=== PATIENT | male | born 1965 | race Caucasian/White ===

== ENCOUNTER 2019-10-27 18:28 | Emergency (ER) | payer BC, OTHER, SELFPAY ==
--- NOTE | ~2019-10-27 | XR_ITS ---
EXAMINATION: XR toe 1st LT min 2V EXAM DATE: 10/27/2019 19:22 INDICATION: Left 1st toe wound, redness, swelling. TECHNIQUE: Frontal and lateral projections of the left 1st toe. There is no prior study for compari son. FINDINGS: There are no bony erosions identified. There is moderate 1st MTP primary osteoarthritis. T here are no acute fractures or dislocations identified. There is no subcutaneous gas. Some faint va scular calcifications. There are no radiopaque foreign bodies. IMPRESSION: 1. No acute osseous findings. 2. Moderate left 1st MTP osteoarthritis. Reviewed, dictated and finalized at location A.
[2019-10-27 18:30] VITALS: BP 150/96; PULSE 84; RESP 20; TEMP 36.6; O2SAT 95
[2019-10-27 19:48] LABS: Hemoglobin A1C 4.4 % (<5.7)
[2019-10-27 19:54] LABS: Anion Gap 9 mmol/L (8-16); Blood Urea Nitrogen 15 mg/dL (9-20); CRP 0.5 mg/dL (<1.0); Calcium 9.6 mg/dL (8.4-10.2); Carbon Dioxide 29 mmol/L (22-30); Chloride 101 mmol/L (98-107); Estimated CRCL calculation 133 ml/min; Estimated Glomerular Filt Rate > 60; Glucose 98 mg/dL (75-110); Potassium 4.5 mmol/L (3.4-5.0); Sodium 139 mmol/L (137-145)
[2019-10-27 20:00] LABS: Basophils Absolute Auto 0.1 K/mm3 (0.0-0.1); Basophils Percent Auto 0.5 % (0.2-1.2); Eosinophils Absolute Auto 0.3 K/mm3 (0-0.3); Eosinophils Percent Auto 2.7 % (0-4.4); Hematocrit 47.6 % (42.0-52.0); Hemoglobin 15.7 g/dL (14.0-18.0); Immature Granulocyte Absolute 0.04 K/mm3 (0.00-0.031); Immature Granulocyte Percent A 0.4 % (0-0.5); Lymphocytes Absolute Auto 2.84 K/mm3 (0.9-3.2); Lymphocytes Percent Auto 26.4 % (18.3-44.2); Mean Corpuscular Hemoglobin 30.7 pg (26-34); Mean Corpuscular Volume 93.2 fl (80-100); Mean Platelet Volume 11.1 fl (7.4-10.4); Monocytes Absolute Auto 0.7 K/mm3 (0.1-0.6); Monocytes Percent Auto 6.2 % (2.6-8.5); Neutrophils Absolute Auto 6.9 K/mm3 (1.3-6.7); Neutrophils Percent Auto 63.8 % (45.5-73.1); Platelet Count Result 206 k/mm3 (150-375); Red Blood Count 5.11 M/mm3 (4.6-6.20); Red Cell Distribution Width 12.3 % (11.5-14.5); White Blood Count 10.8 K/mm3 (4.5-10.0)
[2019-10-27 20:23] LABS: Erythrocyte Sedimentation Rate 6 mm/hr (0-20)
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
[2019-10-27 21:39] VITALS: BP 138/70; PULSE 70; RESP 20; O2SAT 99
== END 2019-10-27 21:41 | disposition home or self-care (01) ==
PROVIDERS: Physician Assistant; Emergency Provider Emergency Medicine; PCP Family Medicine
DX: L03.116 Cellulitis of left lower limb (principal); I10 Essential (primary) hypertension; E11.9 Type 2 diabetes mellitus without complications; F32.9 Major depressive disorder, single episode, unspecified
CPT/HCPCS: 36415; 73660; 80048; 83036; 85025; 85652; 86140; 87040; 96365; 99284; J0690

== ENCOUNTER 2019-11-19 12:04 | Emergency (ER) | payer BC, OTHER, SELFPAY ==
[2019-11-19 12:20] VITALS: BP 127/92; PULSE 72; RESP 18; TEMP 36.7
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
[2019-11-19 12:50] VITALS: O2SAT 100
[2019-11-19] MEDS: cefTRIAXone 1 GM VIAL IM (13:02)
[2019-11-19] MEDS: LIDOCAINE HCL 1% LOCAL INJ 20 ML VIAL 2.1 ML IM (13:03)
== END 2019-11-19 13:25 | disposition home or self-care (01) ==
PROVIDERS: Emergency Provider Registered Nurse; PCP Family Medicine
DX: L03.032 Cellulitis of left toe (principal); S91.102D Unspecified open wound of left great toe without damage to nail, subsequent encounter; W45.8XXD Other foreign body or object entering through skin, subsequent encounter; Z87.891 Personal history of nicotine dependence
CPT/HCPCS: 96372; 99213; G0463; J0696

== ENCOUNTER → 2019-12-06 15:46 | Outpatient (REF) | payer BC, OTHER, SELFPAY | LOC: ANHLAB 15:46 | PROVIDERS: PCP Family Medicine; Visit Provider Nurse Practitioner | DX: R22.9 Localized swelling, mass and lump, unspecified (principal) | CPT/HCPCS: 88304 ==

== ENCOUNTER 2020-01-27 13:01 | Emergency (ER) | payer OTHER, BC, SELFPAY ==
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
[2020-01-27 13:15] VITALS: BP 154/96; PULSE 77; RESP 16; TEMP 36.2; O2SAT 99
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
== END 2020-01-27 14:02 | disposition home or self-care (01) ==
PROVIDERS: Emergency Provider Nurse Practitioner; PCP Family Medicine
DX: T14.8XXA Other injury of unspecified body region, initial encounter (principal); V47.5XXA Car driver injured in collision with fixed or stationary object in traffic accident, initial encounter; S29.9XXA Unspecified injury of thorax, initial encounter; S13.4XXA Sprain of ligaments of cervical spine, initial encounter; Z87.891 Personal history of nicotine dependence; Z98.84 Bariatric surgery status; M17.10 Unilateral primary osteoarthritis, unspecified knee; I10 Essential (primary) hypertension; E11.40 Type 2 diabetes mellitus with diabetic neuropathy, unspecified; G47.33 Obstructive sleep apnea (adult) (pediatric); M47.814 Spondylosis without myelopathy or radiculopathy, thoracic region; F33.9 Major depressive disorder, recurrent, unspecified
CPT/HCPCS: 71046; 99213; G0463

== ENCOUNTER 2020-08-14 15:37 | Emergency (ER) | payer BC, OTHER, SELFPAY ==
[2020-08-14 15:53] VITALS: BP 143/90; PULSE 77; RESP 16; TEMP 37.1; O2SAT 98
--- NOTE | 2020-08-14 16:13 | ED.SKABFB ---
HPI - Skin/Abscess/Foreign Bdy General Chief complaint: Skin/Abscess/Foreign Body Stated complaint: Right foot Infection Source: patient and RN notes reviewed Limitations: no limitations History of Present Illness HPI narrative: The patient, who has prior history of diabetes on several meds, presents with right toe discomfort. Patient states he has improved, diet-controlled diabetes -associated with neuropathy, that has gotten better since a gastric bypass. In the past he had staph infection of his opposite, left foot; his orthopedic history is also remarkable for bilateral knee replacements. He now complains of 1/2-week history of right great toe discomfort that seems to originate proximate to the nail. He complains of pain redness that is moving proximally, slightly worse worse with activity and better with rest or elevation-as he is using his other foot's postop shoe. No fever, discharge, rash, abscess/induration but he does indicated swelling with some shininess. Patient advised to follow-up without fail especially if no improvement. Related Data Home Medications Medication Instructions Recorded Confirmed amlodipine [Norvasc] 10 mg PO DAILY 01/27/20 08/14/20 Allergies Allergy/AdvReac Type Severity Reaction Status Date / Time NSAIDS (Non-Steroidal Allergy Mild UNABLE TO Verified 08/14/20 16:01 Anti-Inflamma TAKE DUE TO GASTRIC BYPASS SURGERY Review of Systems Review of Systems: Narrative: General/Constitutional: No weight loss,fever Eyes: N0: Redness,discharge Ears/Nose/Throat: No: Epistaxis,ear discharge Respiratory: Denies: Hemoptysis Gastrointestinal: No Vomiting, Bleeding-rectal Skin: No Lumps, REPORTS eruption Neurologic: No Focal Weakness,Sz Hematologic: Denies: Petechiae/Purpura Psychiatric: No: Suicida ideationl All Other Systems: Reviewed and Negative [facility] Past Medical History Medical History Arthritis of knee, degenerative Benign essential HTN Diabetes mellitus Diabetic neuropathy Hypertension MDD (major depressive disorder), recurrent episode, moderate Morbid (severe) obesity due to excess calories TALIB (obstructive sleep apnea) Pannus, abdominal Thoracic spondylosis Surgical History Surgical History History of appendectomy History of gastric bypass 04/07/18 Hx of total knee arthroplasty bilateral Family History Family History Father Hypertension Family history of chronic obstructive pulmonary disease Diabetes mellitus Family history of arthritis Patient's father is , Onset Age: 72 Sibling Hypertension Family history of chronic obstructive pulmonary disease Patient's sister is , Onset Age: 54 Patient's brother is in good health Mother Family history of lymphoma Patient's mother is , Onset Age: 54 Social History Social History Social History: Smoking packs per day: 1 Smoking cigarettes per day: 20.0 Smoking status: Former smoker Tobacco type: cigarettes Second hand tobacco smoke exposure: No Smoking end date: 03/17/17 Alcohol intake: current Drinks per week: 4 Substance use: current Substance use type: marijuana Gender identity (if verbalized by the patient): Male Comments At time of signature, agree with nursing past medical, surgical, social and family history. There is no relevant family history pertinent to the presenting complaint Exam Narrative: Exam Narrative: General Appearance: Overweight/well nourished, No distress EYE: PERRLA, EOMI, Conjunctiva clear Ears: External ear normal, Auditory canal normal Nose: Normal nose, Nares clear Mouth/Throat: Normal appearing, Normal lips Neck: Supple Respiratory: Airway moore
== END 2020-08-14 16:30 | disposition home or self-care (01) ==
PROVIDERS: Emergency Provider Emergency Medicine; PCP Family Medicine
DX: L03.115 Cellulitis of right lower limb (principal); Z87.891 Personal history of nicotine dependence; I10 Essential (primary) hypertension; E11.42 Type 2 diabetes mellitus with diabetic polyneuropathy; G47.33 Obstructive sleep apnea (adult) (pediatric); M47.814 Spondylosis without myelopathy or radiculopathy, thoracic region; M17.10 Unilateral primary osteoarthritis, unspecified knee
CPT/HCPCS: 99213; G0463

== ENCOUNTER 2020-08-17 10:16 | Outpatient (CLI) | payer BC, OTHER, SELFPAY ==
--- NOTE | ~2020-08-17 | XR_ITS ---
EXAMINATION: XR foot RT min 3V DATE: 08/17/2020 10:36 INDICATION: Cellulitis TECHNIQUE: Dorsoplantar, two oblique and lateral views of the right foot were obtained. COMPARISON: None. FINDINGS: Bone alignment is normal. There has been interval shortening of the right first proximal phalanx with appearance suggesting prior osteotomy. No fracture. Polyarticular osteoarthritis, moderate severity at the fourth tarsal metatarsal joint and mild at many of the remaining joints in the mid and forefoo t. Small Achilles and plantar calcaneal spurs. No periosteal reaction or cortical erosions. Soft tiss ue swelling over the medial and dorsolateral aspects of the midfoot. IMPRESSION: 1. Suggestion of chronic shortening osteotomy at the right first proximal phalanx. Correlate with ari gical history. No acute osseous abnormality. 2. Mild to moderate polyarticular osteoarthritis. Reviewed, dictated and finalized at location A. IMPRESSION: 1. Suggestion of chronic shortening osteotomy at the right first proximal phala nx. Correlate with surgical history. No acute osseous abnormality. 2. Mild to moderate polyarticular osteoarthritis.
== END 2020-08-17 10:17 | disposition home or self-care (01) ==
LOC: ANHIMG 10:22
PROVIDERS: PCP Family Medicine; Visit Provider Family Medicine
DX: L03.90 Cellulitis, unspecified (principal); E11.40 Type 2 diabetes mellitus with diabetic neuropathy, unspecified; M19.071 Primary osteoarthritis, right ankle and foot
CPT/HCPCS: 73630

== ENCOUNTER 2020-08-21 07:47 | Outpatient (CLI) | payer BC, OTHER, SELFPAY ==
[2020-08-21 08:16] LABS: Basophils Percent Auto 0.6 % (0.2-1.2); Eosinophils Absolute Auto 0.6 K/mm3 (0-0.3); Eosinophils Percent Auto 9.4 % (0-4.4); Hematocrit 44.1 % (42.0-52.0); Hemoglobin 14.6 g/dL (14.0-18.0); Immature Granulocyte Absolute 0.01 K/mm3 (0.00-0.031); Immature Granulocyte Percent A 0.2 % (0-0.5); Lymphocytes Absolute Auto 2.35 K/mm3 (0.9-3.2); Lymphocytes Percent Auto 37.3 % (18.3-44.2); Mean Corpuscular HGB Conc 33.1 g/dl (32-36); Mean Corpuscular Hemoglobin 31.5 pg (26-34); Mean Corpuscular Volume 95.2 fl (80-100); Mean Platelet Volume 9.8 fl (7.4-10.4); Monocytes Absolute Auto 0.6 K/mm3 (0.1-0.6); Monocytes Percent Auto 9.5 % (2.6-8.5); Neutrophils Absolute Auto 2.7 K/mm3 (1.3-6.7); Platelet Count Result 195 k/mm3 (150-375); Red Blood Count 4.63 M/mm3 (4.6-6.20); Red Cell Distribution Width 12.6 % (11.5-14.5); White Blood Count 6.3 K/mm3 (4.5-10.0)
[2020-08-21 08:31] LABS: Alanine Aminotransferase 24 U/L (4-50); Albumin Level 3.9 g/dL (3.5-5.1); Alkaline Phosphatase 126 U/L (38-126); Anion Gap 8 mmol/L (8-16); Aspartate Amino Transferase 46 U/L (17-59); Bilirubin,Total 0.7 mg/dL (0.2-1.3); Blood Urea Nitrogen 11 mg/dL (9-20); Calcium 9.1 mg/dL (8.4-10.2); Carbon Dioxide 30 mmol/L (22-30); Chloride 103 mmol/L (98-107); Cholesterol 164 mg/dL (0-200); Estimated Glomerular Filt Rate > 60; Glucose 101 mg/dL (75-110); HDL Direct 58 mg/dL; Potassium 3.9 mmol/L (3.4-5.0); Sodium 141 mmol/L (137-145); Triglycerides 106 mg/dL (<150); Uric Acid 4.2 mg/dL (3.5-8.5)
[2020-08-21 08:35] LABS: Hemoglobin A1C 4.9 % (<5.7)
[2020-08-21 09:03] LABS: LDL Cholesterol Direct 80 mg/dL
[2020-08-21 09:38] LABS: Erythrocyte Sedimentation Rate 16 mm/hr (0-20)
[2020-08-21 13:59] LABS: MALB Creatinine Ratio 17.2 mg/g (0-30); Microalbumin Urine Random 9.3 mg/L (0-16.7)
== END 2020-08-21 07:48 | disposition home or self-care (01) ==
LOC: ANHLAB 07:51
PROVIDERS: PCP Family Medicine; Visit Provider Family Medicine
DX: E78.2 Mixed hyperlipidemia (principal); L40.9 Psoriasis, unspecified; E11.9 Type 2 diabetes mellitus without complications; I10 Essential (primary) hypertension; E79.0 Hyperuricemia without signs of inflammatory arthritis and tophaceous disease
CPT/HCPCS: 36415; 80053; 80061; 82043; 83036; 84550; 85025; 85652

== ENCOUNTER 2020-08-22 07:18 | Outpatient (CLI) | payer BC, OTHER, SELFPAY ==
--- NOTE | ~2020-08-22 | CT_ITS ---
EXAMINATION: CT foot RT wo con DATE: 08/22/2020 08:06 INDICATION: Cellulitis of right toe. Diabetic neuropathy. TECHNIQUE: Computed tomography (CT) of the right foot was performed without intravenous contrast. Aut omated exposure control and iterative reconstruction technique were employed. The dose-length product was 390.25 mGy-cm. COMPARISON: Right foot radiographs 08/17/2020, 11/24/15 FINDINGS: There is a comminuted fracture of first proximal phalanx with extension of fracture lines t o the proximal and distal articular surfaces. The main distal fracture fragment demonstrates impactio n and 2 mm dorsal displacement. There is mild osteoarthritis of first metatarsophalangeal joint and t he ankle joint and some of the midfoot joints. There are enthesophytes at the posterior and plantar a spects of calcaneal tuberosity. IMPRESSION: 1. Acute comminuted fracture of first proximal phalanx. Reviewed, dictated and finalized at location A.
== END 2020-08-22 07:19 | disposition home or self-care (01) ==
PROVIDERS: PCP Family Medicine; Visit Provider Family Medicine
DX: L03.031 Cellulitis of right toe (principal); E11.40 Type 2 diabetes mellitus with diabetic neuropathy, unspecified
CPT/HCPCS: 73700

== ENCOUNTER 2020-09-07 11:46 | Emergency (ER) | payer BC, OTHER, SELFPAY ==
[2020-09-07 12:01] VITALS: BP 153/89; PULSE 93; RESP 16; TEMP 36.6; O2SAT 99
[2020-09-07 12:12] LABS: Basophils Percent Auto 0.5 % (0.2-1.2); Eosinophils Absolute Auto 0.3 K/mm3 (0-0.3); Eosinophils Percent Auto 3.1 % (0-4.4); Hematocrit 48.7 % (42.0-52.0); Hemoglobin 16.2 g/dL (14.0-18.0); Immature Granulocyte Absolute 0.02 K/mm3 (0.00-0.031); Immature Granulocyte Percent A 0.2 % (0-0.5); Lymphocytes Absolute Auto 1.64 K/mm3 (0.9-3.2); Lymphocytes Percent Auto 20.4 % (18.3-44.2); Mean Corpuscular HGB Conc 33.3 g/dl (32-36); Mean Corpuscular Volume 96.2 fl (80-100); Monocytes Absolute Auto 0.6 K/mm3 (0.1-0.6); Monocytes Percent Auto 7.2 % (2.6-8.5); Neutrophils Absolute Auto 5.5 K/mm3 (1.3-6.7); Neutrophils Percent Auto 68.6 % (45.5-73.1); Platelet Count Result 203 k/mm3 (150-375); Red Blood Count 5.06 M/mm3 (4.6-6.20); Red Cell Distribution Width 12.1 % (11.5-14.5); White Blood Count 8.1 K/mm3 (4.5-10.0)
[2020-09-07 12:23] LABS: Alanine Aminotransferase 58 U/L (4-50); Albumin Level 4.6 g/dL (3.5-5.1); Alkaline Phosphatase 219 U/L (38-126); Anion Gap 9 mmol/L (8-16); Aspartate Amino Transferase 82 U/L (17-59); Bilirubin,Total 1.6 mg/dL (0.2-1.3); Blood Urea Nitrogen 8 mg/dL (9-20); Calcium 9.6 mg/dL (8.4-10.2); Carbon Dioxide 27 mmol/L (22-30); Chloride 101 mmol/L (98-107); Estimated CRCL calculation 136 ml/min; Estimated Glomerular Filt Rate > 60; Glucose 157 mg/dL (75-110); Lipase 870 U/L (23-300); Potassium 4.2 mmol/L (3.4-5.0); Sodium 137 mmol/L (137-145)
[2020-09-07 12:53] LABS: Add Urine Microscopic? YES; Appearance Urine Clear (Clear); Bilirubin Urine Negative (Negative); Blood Urine Negative (Negative); Color Urine Amber (Yellow); Glucose Urine UA Negative (Negative); Hyaline Casts Urine 30-49 /lpf; Ketones Urine Negative (Negative); Leukocyte Esterase Ur Negative LEU/UL (Negative); Mucus Urine Moderate /lpf; Nitrate Urine Negative (Negative); Protein Urine 2+ mg/dL (Negative); RBC Urine 0-2 /hpf (0-2); Specific Grav Ur 1.012 (1.001-1.035); Urobilinogen Urine Negative mg/dL (<2.0); WBC Urine 0-3 /hpf
--- NOTE | 2020-09-07 14:55 | PC.NURSE ---
pt wants results sent to his primary. [facility] is tired of waiting. [facility] is going home to lay down.
== END 2020-09-08 03:51 | disposition left against medical advice (07) ==
LOC: ANHED 15:50
PROVIDERS: Emergency Provider Emergency Medicine; PCP Family Medicine
DX: R10.9 Unspecified abdominal pain (principal)
CPT/HCPCS: 36415; 80053; 81001; 83690; 85025; 99199

== ENCOUNTER 2020-09-08 11:53 | Outpatient (CLI) | payer BC, OTHER, SELFPAY ==
--- NOTE | ~2020-09-08 | CT_ITS ---
EXAMINATION: CT abdomen pelvis wo con DATE: 09/08/2020 12:20 INDICATION: Abdominal pain and nausea. TECHNIQUE: Computed tomography (CT) of the abdomen and pelvis was performed without intravenous contr ast. The dose-length product was 1395.22 mGy-cm. Automated exposure control and iterative reconstruct ion technique were employed. COMPARISON: None. FINDINGS: Lung bases are unremarkable. No significant pleural or pericardial effusion. No significant vascular abnormality. Pancreatic head is mildly thickened with subtle peripancreatic fatty infiltrat ion, suspicious for acute pancreatitis. Clinically correlate. The spleen, adrenal glands are unremark able. There are nonobstructing bilateral renal stones. There is a small low-density lesion in the lef t kidney, most likely benign cysts. Gallbladder is present. Nonobstructive bowel gas pattern. No free air or free fluid. Bladder is decompressed. Mild lower thoracic and lumbar spondylosis. IMPRESSION: 1. Mild thickening of the pancreatic head with subtle peripancreatic fatty infiltration, suspicious f or acute pancreatitis. Clinically correlate. 2: Nonobstructing bilateral nephrolithiasis. Reviewed, dictated and finalized at location B. IMPRESSION: 1. Mild thickening of the pancreatic head with subtle peripancreatic fatty infi ltration, suspicious for acute pancreatitis. Clinically correlate. 2: Nonobstructing bilateral nephrolithiasis.
== END 2020-09-08 11:54 | disposition home or self-care (01) ==
PROVIDERS: PCP Family Medicine; Visit Provider Family Medicine
DX: R10.9 Unspecified abdominal pain (principal); R11.2 Nausea with vomiting, unspecified; N20.0 Calculus of kidney
CPT/HCPCS: 74176

== ENCOUNTER 2020-09-15 08:03 | Outpatient (CLI) | payer BC, OTHER, SELFPAY ==
[2020-09-15 08:54] LABS: Alanine Aminotransferase 26 U/L (4-50); Albumin Level 4.4 g/dL (3.5-5.1); Alkaline Phosphatase 102 U/L (38-126); Amylase 83 U/L (30-110); Anion Gap 7 mmol/L (8-16); Aspartate Amino Transferase 41 U/L (17-59); Bilirubin,Total 0.6 mg/dL (0.2-1.3); Blood Urea Nitrogen 10 mg/dL (9-20); Calcium 9.7 mg/dL (8.4-10.2); Carbon Dioxide 27 mmol/L (22-30); Chloride 107 mmol/L (98-107); Estimated Glomerular Filt Rate > 60; Glucose 85 mg/dL (75-110); Lipase 738 U/L (23-300); Potassium 4.9 mmol/L (3.4-5.0); Sodium 141 mmol/L (137-145)
== END 2020-09-15 08:04 | disposition home or self-care (01) ==
LOC: ANHLAB 08:07
PROVIDERS: PCP Family Medicine; Visit Provider Family Medicine
DX: K85.90 Acute pancreatitis without necrosis or infection, unspecified (principal)
CPT/HCPCS: 36415; 80053; 82150; 83690

== ENCOUNTER 2020-11-09 07:38 | Outpatient (CLI) | payer BC, OTHER, SELFPAY ==
[2020-11-09 08:19] LABS: Basophils Percent Auto 0.5 % (0.2-1.2); Eosinophils Absolute Auto 0.2 K/mm3 (0-0.3); Eosinophils Percent Auto 3.1 % (0-4.4); Hematocrit 45.3 % (42.0-52.0); Hemoglobin 14.2 g/dL (14.0-18.0); Immature Granulocyte Absolute 0.02 K/mm3 (0.00-0.031); Immature Granulocyte Percent A 0.3 % (0-0.5); Lymphocytes Absolute Auto 2.65 K/mm3 (0.9-3.2); Lymphocytes Percent Auto 34.7 % (18.3-44.2); Mean Corpuscular HGB Conc 31.3 g/dl (32-36); Mean Corpuscular Hemoglobin 30.7 pg (26-34); Mean Corpuscular Volume 98.1 fl (80-100); Mean Platelet Volume 11.5 fl (7.4-10.4); Monocytes Absolute Auto 0.6 K/mm3 (0.1-0.6); Monocytes Percent Auto 7.6 % (2.6-8.5); Neutrophils Absolute Auto 4.1 K/mm3 (1.3-6.7); Neutrophils Percent Auto 53.8 % (45.5-73.1); Platelet Count Result 192 k/mm3 (150-375); Red Blood Count 4.62 M/mm3 (4.6-6.20); Red Cell Distribution Width 11.9 % (11.5-14.5); White Blood Count 7.6 K/mm3 (4.5-10.0)
[2020-11-09 08:35] LABS: Alanine Aminotransferase 25 U/L (4-50); Albumin Level 4.1 g/dL (3.5-5.1); Alkaline Phosphatase 96 U/L (38-126); Amylase 94 U/L (30-110); Anion Gap 6 mmol/L (8-16); Aspartate Amino Transferase 33 U/L (17-59); Bilirubin,Total 0.5 mg/dL (0.2-1.3); Blood Urea Nitrogen 12 mg/dL (9-20); Carbon Dioxide 25 mmol/L (22-30); Chloride 107 mmol/L (98-107); Cholesterol 133 mg/dL (0-200); Estimated Glomerular Filt Rate > 60; Glucose 90 mg/dL (65-110); HDL Direct 35 mg/dL; Lipase 298 U/L (23-300); Sodium 138 mmol/L (137-145); Triglycerides 82 mg/dL (<150)
[2020-11-09 08:56] LABS: LDL Cholesterol Direct 69 mg/dL
== END 2020-11-09 07:39 | disposition home or self-care (01) ==
PROVIDERS: PCP Family Medicine; Visit Provider Family Medicine
DX: F10.10 Alcohol abuse, uncomplicated (principal); K85.20 Alcohol induced acute pancreatitis without necrosis or infection; I10 Essential (primary) hypertension; E78.2 Mixed hyperlipidemia
CPT/HCPCS: 36415; 80053; 80061; 82150; 82607; 83690; 85025

== ENCOUNTER 2020-11-21 07:50 | Outpatient (CLI) | payer BC, OTHER, SELFPAY ==
[2020-11-21 09:08] LABS: Hematocrit 43.8 % (42.0-52.0); Mean Corpuscular Hemoglobin 31.5 pg (26-34); Mean Corpuscular Volume 98.4 fl (80-100); Mean Platelet Volume 10.6 fl (7.4-10.4); Platelet Count Result 194 k/mm3 (150-375); Red Blood Count 4.45 M/mm3 (4.6-6.20); Red Cell Distribution Width 12.3 % (11.5-14.5); White Blood Count 6.8 K/mm3 (4.5-10.0)
[2020-11-21 10:13] LABS: Alanine Aminotransferase 20 U/L (4-50); Albumin Level 3.8 g/dL (3.5-5.1); Alkaline Phosphatase 83 U/L (38-126); Anion Gap 4 mmol/L (8-16); Aspartate Amino Transferase 31 U/L (17-59); Bilirubin,Total 0.4 mg/dL (0.2-1.3); Blood Urea Nitrogen 15 mg/dL (9-20); Calcium 8.6 mg/dL (8.4-10.2); Carbon Dioxide 28 mmol/L (22-30); Chloride 104 mmol/L (98-107); Estimated Glomerular Filt Rate > 60; Glucose 86 mg/dL (65-110); Phosphorus 3.4 mg/dL (2.5-4.5); Potassium 4.2 mmol/L (3.4-5.0); Sodium 136 mmol/L (137-145)
[2020-11-21 11:30] LABS: Folic Acid > 20.0 ng/mL (2.76->20); Vitamin B12 > 1000.0 pg/mL (239-931)
[2020-11-21 12:48] LABS: Iron 121 ug/dL (49-181)
[2020-11-21 12:58] LABS: Parathyroid Intact 42.5 pg/mL (7.5-53.5); Vitamin D 25 Hydroxy 52.2 ng/mL
[2020-11-23 15:15] LABS: Zinc 52 mcg/dL (60-130)
[2020-11-24 14:23] LABS: Alpha-Tocopherol 9.4 mg/L (5.7-19.9); Beta-Gamma Tocopherol <1.0 mg/L (<=4.3); Vitamin A 37 mcg/dL (38-98)
[2020-11-25 14:02] LABS: Vitamin B1 30 nmol/L (8-30)
[2020-11-28 09:59] LABS: Vitamin K1 152 pg/mL (130-1500)
== END 2020-11-21 07:51 | disposition home or self-care (01) ==
PROVIDERS: PCP Family Medicine; Referring Provider Family Medicine
DX: K91.2 Postsurgical malabsorption, not elsewhere classified (principal); E56.9 Vitamin deficiency, unspecified; E46 Unspecified protein-calorie malnutrition; E66.01 Morbid (severe) obesity due to excess calories; R63.4 Abnormal weight loss; Z98.84 Bariatric surgery status
CPT/HCPCS: 36415; 80053; 82306; 82525; 82607; 82728; 82746; 83540; 83735; 83970; 84100; 84134; 84425; 84446; 84590; 84597; 84630; 85027

== ENCOUNTER → 2021-02-16 01:58 | Outpatient (CLI) | payer BC, OTHER, SELFPAY ==
[2021-02-16 17:54] LABS: SARS-CoV-2 RNA PCR Negative
== END ==
PROVIDERS: PCP Family Medicine; Visit Provider Internal Medicine Gastroenterology
DX: Z01.812 Encounter for preprocedural laboratory examination (principal); Z20.822 Contact with and (suspected) exposure to COVID-19
CPT/HCPCS: C9803; U0003; U0005

== ENCOUNTER 2021-02-19 02:50 | Day surgery (SDC) | payer BC, OTHER, SELFPAY ==
[2021-02-12 10:29] VITALS: BMI 34.0
[2021-02-19 09:41] VITALS: BP 160/91; PULSE 63; RESP 18; TEMP 36; O2SAT 96; BMI 34.2
[2021-02-19] MEDS: LACTATED RINGERS 1,000 ML 150 ML IV CONT (09:50)
--- NOTE | 2021-02-19 10:29 | PM.HPGS ---
History of Present Illness History of Present Illness Consent: Risks, benefits, and alternatives have been discussed and questions answered. Patient agrees to proceed with procedure. Chief complaint: neoplasm screening Narrative: Vikram Keller is a 55 year old male here for first screening colonoscopy Review of Systems Constitutional: Constitutional: Denies headache(s) and Denies weakness Eyes: Eyes: Denies blurry vision ENT: Reports Normal hearing present, Denies headache(s) and Denies neck pain Cardiovascular: Cardiovascular: Denies chest pain and Denies dyspnea Respiratory: Respiratory: Denies dyspnea Gastrointestinal: Gastrointestinal: Reports no additional gastrointestinal complaints Genitourinary: Genitourinary: Denies dysuria Musculoskeletal: Musculoskeletal: Denies neck pain Integumentary/Breasts: Skin/Breast: Denies dry skin Neurologic: Reports Normal hearing present, Denies headache(s) and Denies weakness Psychiatric: Psychiatric: Denies anxiety Endocrine: Endocrine: Denies change in body appearance Hematologic/Lymphatic: Hematologic/Lymphatic: Denies easy bleeding Allergic/Immunologic: Allergic/Immunologic: Denies urticaria PMFSH Past Medical History Medical History Arthritis of knee, degenerative Benign essential HTN Diabetes mellitus Diabetic neuropathy Hypertension MDD (major depressive disorder), recurrent episode, moderate Morbid (severe) obesity due to excess calories TALIB (obstructive sleep apnea) Pannus, abdominal Thoracic spondylosis Surgical History Surgical History History of appendectomy History of gastric bypass 04/07/18 Hx of total knee arthroplasty bilateral Family History Family History Father Hypertension Family history of chronic obstructive pulmonary disease Diabetes mellitus Family history of arthritis Patient's father is , Onset Age: 72 Sibling Hypertension Family history of chronic obstructive pulmonary disease Patient's sister is , Onset Age: 54 Patient's brother is in good health Mother Family history of lymphoma Patient's mother is , Onset Age: 54 Social History Social History (Updated 12/14/20 @ 07:37 by Renay Hernandes) Social History: Smoking packs per day: 0.5 Smoking cigarettes per day: 10.0 Years smoked: 30 Smoking pack-years: 15.00 Smoking status: Current every day smoker Tobacco type: cigarettes Second hand tobacco smoke exposure: Yes Smoking end date: 03/17/17 Alcohol intake: former Substance use: former Substance use type: marijuana Living arrangements: with family Gender identity (if verbalized by the patient): Male Sexual Orientation (if Verbalized by the Patient): Straight or Heterosexual Spiritual care concerns: No Meds Home Medications and Allergies Home Medications Medication Instructions Recorded Confirmed Type omeprazole 20 mg capsule,delayed 20 mg PO DAILY #90 cap 11/10/20 02/19/21 Rx release fluoxetine 40 mg capsule 40 mg PO DAILY #90 cap 12/14/20 02/19/21 Rx lisinopril 20 mg tablet 20 mg PO DAILY #90 tablet 12/14/20 02/19/21 Rx tadalafil 5 mg tablet 5 mg PO DAILY #90 tablet 12/14/20 02/19/21 Rx amlodipine 10 mg tablet 10 mg PO DAILY #30 tablet 01/17/21 02/19/21 Rx mirtazapine 15 mg tablet 15 mg PO DAILY #30 tablet 01/29/21 02/19/21 Rx naltrexone 50 mg tablet 50 mg PO DAILY #30 tablet 01/29/21 02/19/21 Rx ciclopirox 1 applic TOPICAL QHS PRN 02/12/21 02/19/21 History Allergies Allergy/AdvReac Type Severity Reaction Status Date / Time NSAIDS (Non-Steroidal Allergy Mild UNABLE TO Verified 02/19/21 09:40 Anti-Inflamma TAKE DUE TO GASTRIC BYPASS SURGERY Vital Signs Vital Signs - 24 hr 02/19/21 09:41 Temperature 96.8 F L Pulse R
--- NOTE | 2021-02-19 10:34 | WPDANESEPPF ---
Anes - Initial Pre Proc Eval Procedure: Operation Date: 02/19/21 10:30 Proposed Procedures p Screening Colonoscopy - Obed Minor MD Date/Time: 02/19/21 10:34 Surgeon: Obed Minor MD Pre Op Diagnosis: neoplasm screening Patient Data Age: 55 Gender: M Height: 1.83 m Weight: 114.6 kg Last Vital Signs Temp 96.8 F L 02/19/21 09:41 Pulse 63 02/19/21 09:41 Resp 18 02/19/21 09:41 BP 160/91 H 02/19/21 09:41 Pulse Ox 96 02/19/21 09:41 Allergies Allergy/AdvReac Type Severity Reaction Status Date / Time NSAIDS (Non-Steroidal Allergy Mild UNABLE TO Verified 02/19/21 09:40 Anti-Inflamma TAKE DUE TO GASTRIC BYPASS SURGERY Home Medications Medication Instructions Recorded Confirmed Type omeprazole 20 mg capsule,delayed 20 mg PO DAILY #90 cap 11/10/20 02/19/21 Rx release fluoxetine 40 mg capsule 40 mg PO DAILY #90 cap 12/14/20 02/19/21 Rx lisinopril 20 mg tablet 20 mg PO DAILY #90 tablet 12/14/20 02/19/21 Rx tadalafil 5 mg tablet 5 mg PO DAILY #90 tablet 12/14/20 02/19/21 Rx amlodipine 10 mg tablet 10 mg PO DAILY #30 tablet 01/17/21 02/19/21 Rx mirtazapine 15 mg tablet 15 mg PO DAILY #30 tablet 01/29/21 02/19/21 Rx naltrexone 50 mg tablet 50 mg PO DAILY #30 tablet 01/29/21 02/19/21 Rx ciclopirox 1 applic TOPICAL QHS PRN 02/12/21 02/19/21 History Patient hx anesthesia problems: none Family hx anesthesia problems: none Results Review: All pre-operative results and documents have been reviewed as part of the pre-operative evaluation. [facility] Past Medical History Medical History Arthritis of knee, degenerative Benign essential HTN Diabetes mellitus Diabetic neuropathy Hypertension MDD (major depressive disorder), recurrent episode, moderate Morbid (severe) obesity due to excess calories TALIB (obstructive sleep apnea) Pannus, abdominal Thoracic spondylosis Surgical History Surgical History History of appendectomy History of gastric bypass 04/07/18 Hx of total knee arthroplasty bilateral Family History Family History Father Hypertension Family history of chronic obstructive pulmonary disease Diabetes mellitus Family history of arthritis Patient's father is , Onset Age: 72 Sibling Hypertension Family history of chronic obstructive pulmonary disease Patient's sister is , Onset Age: 54 Patient's brother is in good health Mother Family history of lymphoma Patient's mother is , Onset Age: 54 Social History Social History (Updated 12/14/20 @ 07:37 by Renay Hernandes) Social History: Smoking packs per day: 0.5 Smoking cigarettes per day: 10.0 Years smoked: 30 Smoking pack-years: 15.00 Smoking status: Current every day smoker Tobacco type: cigarettes Second hand tobacco smoke exposure: Yes Smoking end date: 03/17/17 Alcohol intake: former Substance use: former Substance use type: marijuana Living arrangements: with family Gender identity (if verbalized by the patient): Male Sexual Orientation (if Verbalized by the Patient): Straight or Heterosexual Spiritual care concerns: No Anes - Eval Final PreProcedure Day of Procedure 02/19/21 10:34 Patient weight: obese Heart: regular rate and rhythm Lungs: clear to auscultation Airway: Mallampati scale class II Neurological: alert and oriented Last oral intake: >/= 8 hours ASA classification: III Emergent: no Anesthetic plan: proceed Anesthesia type and monitoring: general GIVS and standard monitoring Results Review: All pre-operative results and documents have been reviewed as part of the pre-operative evaluation. Informed Consent: The patient's anesthetic plan and its attendant risks and benefits were discussed with the patient/f
[2021-02-19 10:55] VITALS: BP 104/73; PULSE 54; RESP 16; O2SAT 98
[2021-02-19 11:05] VITALS: BP 110/74; PULSE 55; RESP 16; O2SAT 99
[2021-02-19 11:15] VITALS: BP 129/87; PULSE 65; RESP 18; O2SAT 100
== END 2021-02-19 11:23 | disposition home or self-care (01) ==
PROVIDERS: PCP Family Medicine; Visit Provider Internal Medicine Gastroenterology
PROC: 0DJD8ZZ Inspection of Lower Intestinal Tract, Via Natural or Artificial Opening Endoscopic (ICD-10-PCS; CPT 45378; principal; 2021-02-19 10:30)
DX: Z12.11 Encounter for screening for malignant neoplasm of colon (principal); K64.8 Other hemorrhoids; I10 Essential (primary) hypertension; E11.40 Type 2 diabetes mellitus with diabetic neuropathy, unspecified; G47.33 Obstructive sleep apnea (adult) (pediatric); M47.814 Spondylosis without myelopathy or radiculopathy, thoracic region; F33.1 Major depressive disorder, recurrent, moderate; F17.210 Nicotine dependence, cigarettes, uncomplicated
CPT/HCPCS: 45378; J2704; J7120

== ENCOUNTER 2021-04-09 07:07 | Outpatient (CLI) | payer BC, OTHER, SELFPAY ==
[2021-04-09 08:08] LABS: Basophils Percent Auto 0.5 % (0.2-1.2); Eosinophils Absolute Auto 0.5 K/mm3 (0-0.3); Hemoglobin 14.5 g/dL (14.0-18.0); Immature Granulocyte Absolute 0.02 K/mm3 (0.00-0.031); Immature Granulocyte Percent A 0.3 % (0-0.5); Lymphocytes Absolute Auto 2.51 K/mm3 (0.9-3.2); Lymphocytes Percent Auto 31.4 % (18.3-44.2); Mean Corpuscular HGB Conc 31.5 g/dl (32-36); Mean Corpuscular Hemoglobin 30.5 pg (26-34); Mean Corpuscular Volume 96.8 fl (80-100); Mean Platelet Volume 10.3 fl (7.4-10.4); Monocytes Absolute Auto 0.6 K/mm3 (0.1-0.6); Monocytes Percent Auto 7.1 % (2.6-8.5); Neutrophils Absolute Auto 4.4 K/mm3 (1.3-6.7); Neutrophils Percent Auto 54.7 % (45.5-73.1); Platelet Count Result 208 k/mm3 (150-375); Red Blood Count 4.75 M/mm3 (4.6-6.20); Red Cell Distribution Width 13.2 % (11.5-14.5)
[2021-04-09 08:19] LABS: LDL Cholesterol Direct 104 mg/dL
[2021-04-09 08:20] LABS: Creatinine Urine 89.7 mg/dL
[2021-04-09 08:22] LABS: Alanine Aminotransferase 23 U/L (4-50); Alkaline Phosphatase 78 U/L (38-126); Anion Gap 7 mmol/L (8-16); Aspartate Amino Transferase 35 U/L (17-59); Bilirubin,Total 0.4 mg/dL (0.2-1.3); Blood Urea Nitrogen 17 mg/dL (9-20); Carbon Dioxide 25 mmol/L (22-30); Chloride 104 mmol/L (98-107); Cholesterol 166 mg/dL (0-200); Estimated Glomerular Filt Rate > 60; Glucose 97 mg/dL (65-110); HDL Direct 37 mg/dL; Potassium 4.4 mmol/L (3.4-5.0); Sodium 136 mmol/L (137-145); Triglycerides 75 mg/dL (<150); Uric Acid 4.3 mg/dL (3.5-8.5)
[2021-04-09 08:45] LABS: MALB Creatinine Ratio < 6.7 mg/g (0-30); Microalbumin Urine Random < 6.0 mg/L (0-16.7)
[2021-04-11 14:12] LABS: Zinc 82 mcg/dL (60-130)
[2021-04-12 14:06] LABS: Vitamin D 1,25 (OH)2 Total 46 pg/mL (18-72); Vitamin D2 1,25 (OH)2 <8 pg/mL; Vitamin D3 1,25 (OH)2 46 pg/mL
[2021-04-12 17:06] LABS: Vitamin A 52 mcg/dL (38-98)
[2021-04-12 21:55] LABS: PSA, Free 0.12 ng/mL; PSA, Total 0.5 ng/mL (<=4.0)
== END 2021-04-09 07:08 | disposition home or self-care (01) ==
PROVIDERS: PCP Family Medicine; Visit Provider Family Medicine
DX: E78.2 Mixed hyperlipidemia (principal); E11.9 Type 2 diabetes mellitus without complications; I10 Essential (primary) hypertension; E79.0 Hyperuricemia without signs of inflammatory arthritis and tophaceous disease; E03.9 Hypothyroidism, unspecified; N40.1 Benign prostatic hyperplasia with lower urinary tract symptoms; E50.9 Vitamin A deficiency, unspecified; E60 Dietary zinc deficiency
CPT/HCPCS: 36415; 80053; 80061; 82043; 82652; 83036; 84153; 84154; 84443; 84550; 84590; 84630; 85025

== ENCOUNTER 2021-09-29 09:18 | Outpatient (CLI) | payer BC, OTHER, SELFPAY ==
[2021-09-29 09:58] LABS: Alanine Aminotransferase 21 U/L (6-50); Albumin Level 3.6 g/dL (3.5-5.1); Alkaline Phosphatase 69 U/L (38-126); Anion Gap 4 mmol/L (8-16); Aspartate Amino Transferase 29 U/L (17-59); Bilirubin,Total 0.4 mg/dL (0.2-1.3); Blood Urea Nitrogen 16 mg/dL (9-20); Calcium 8.3 mg/dL (8.4-10.2); Carbon Dioxide 27 mmol/L (22-30); Chloride 105 mmol/L (98-107); Estimated Glomerular Filt Rate > 60; Glucose 87 mg/dL (65-110); Potassium 4.4 mmol/L (3.4-5.0); Sodium 136 mmol/L (137-145); Uric Acid 4.6 mg/dL (3.5-8.5)
[2021-09-29 10:24] LABS: Creatinine Urine 72.3 mg/dL
[2021-09-29 10:41] LABS: MALB Creatinine Ratio < 8.3 mg/g (0-30); Microalbumin Urine Random < 6.0 mg/L (0-16.7)
== END 2021-09-29 09:19 | disposition home or self-care (01) ==
LOC: ANHLAB 09:19
PROVIDERS: PCP Family Medicine; Visit Provider Family Medicine
DX: E11.40 Type 2 diabetes mellitus with diabetic neuropathy, unspecified (principal); F10.10 Alcohol abuse, uncomplicated; I10 Essential (primary) hypertension
CPT/HCPCS: 36415; 80053; 82043; 83036; 84550

== ENCOUNTER 2021-12-17 09:17 | Outpatient (CLI) | payer BC, OTHER, SELFPAY ==
[2021-12-17 09:52] LABS: Basophils Percent Auto 0.5 % (0.2-1.2); Eosinophils Absolute Auto 0.3 K/mm3 (0-0.3); Eosinophils Percent Auto 5.2 % (0-4.4); Hematocrit 43.6 % (42.0-52.0); Hemoglobin 13.9 g/dL (14.0-18.0); Immature Granulocyte Absolute 0.01 K/mm3 (0.00-0.031); Immature Granulocyte Percent A 0.2 % (0-0.5); Lymphocytes Absolute Auto 1.89 K/mm3 (0.9-3.2); Lymphocytes Percent Auto 29.7 % (18.3-44.2); Mean Corpuscular HGB Conc 31.9 g/dl (32-36); Mean Corpuscular Hemoglobin 29.3 pg (26-34); Mean Platelet Volume 10.7 fl (7.4-10.4); Monocytes Absolute Auto 0.9 K/mm3 (0.1-0.6); Neutrophils Absolute Auto 3.2 K/mm3 (1.3-6.7); Neutrophils Percent Auto 50.4 % (45.5-73.1); Platelet Count Result 179 k/mm3 (150-375); Red Blood Count 4.74 M/mm3 (4.6-6.20); Red Cell Distribution Width 12.9 % (11.5-14.5); White Blood Count 6.4 K/mm3 (4.5-10.0)
[2021-12-17 10:19] LABS: Alanine Aminotransferase 23 U/L (6-50); Albumin Level 4.4 g/dL (3.5-5.1); Alkaline Phosphatase 104 U/L (38-126); Anion Gap 9 mmol/L (8-16); Aspartate Amino Transferase 31 U/L (17-59); Bilirubin,Total 0.6 mg/dL (0.2-1.3); Blood Urea Nitrogen 15 mg/dL (9-20); Calcium 8.7 mg/dL (8.4-10.2); Carbon Dioxide 26 mmol/L (22-30); Chloride 103 mmol/L (98-107); Cholesterol 132 mg/dL (0-200); Estimated Glomerular Filt Rate > 60; Glucose 98 mg/dL (65-110); HDL Direct 36 mg/dL; Potassium 4.3 mmol/L (3.4-5.0); Sodium 138 mmol/L (137-145); Triglycerides 43 mg/dL (<150); Uric Acid 4.6 mg/dL (3.5-8.5)
[2021-12-17 10:30] LABS: LDL Cholesterol Direct 81 mg/dL
[2021-12-17 10:38] LABS: Erythrocyte Sedimentation Rate 16 mm/hr (0-20)
[2021-12-17 12:06] LABS: Hemoglobin A1C 5.1 % (<5.7)
[2021-12-18 15:25] LABS: Rapid Plasma Reagin Non-Reactive (NonReactive)
[2021-12-21 16:40] LABS: ANA Cascade Screen Negative (Negative)
== END 2021-12-17 09:18 | disposition home or self-care (01) ==
PROVIDERS: PCP Family Medicine; Visit Provider Family Medicine
DX: E79.0 Hyperuricemia without signs of inflammatory arthritis and tophaceous disease (principal); R21 Rash and other nonspecific skin eruption; I10 Essential (primary) hypertension; E11.9 Type 2 diabetes mellitus without complications; E78.2 Mixed hyperlipidemia
CPT/HCPCS: 36415; 80053; 80061; 83036; 84443; 84550; 85025; 85652; 86038; 86592

== ENCOUNTER 2022-01-10 14:26 | Outpatient (CLI) | payer BC, OTHER, SELFPAY ==
--- NOTE | 2022-01-10 | ECG_ITS ---
Measurements Intervals [place] Rate: 64 P: 7 IA: 165 QRS: -58 QRSD: 121 T: 26 QT: 417 QTc: 432 Interpretive Statements SINUS RHYTHM INFERIOR MYOCARDIAL INFARCTION , PROBABLY OLD [40+ ms Q WAVE AND/OR ST/T ABNORMALITY IN II/aVF] COMPARED TO PRIOR ECG DATED 07-29-18: NO SIGNIFICANT CHANGES Electronically Signed On 01-10-2022 16:00:27 CDT by Almas Calles M.D.
== END 2022-01-10 14:27 | disposition home or self-care (01) ==
LOC: ANHCARD 14:30
PROVIDERS: PCP Family Medicine; Visit Provider Podiatrist Foot & Ankle Surgery
DX: R03.0 Elevated blood-pressure reading, without diagnosis of hypertension (principal); R94.31 Abnormal electrocardiogram [ECG] [EKG]
CPT/HCPCS: 93005

== ENCOUNTER 2022-07-03 07:09 | Outpatient (CLI) | payer BC, OTHER, SELFPAY ==
[2022-07-03 07:38] LABS: Basophils Absolute Auto 0.1 K/mm3 (0.0-0.1); Basophils Percent Auto 0.6 % (0.2-1.2); Eosinophils Absolute Auto 0.4 K/mm3 (0-0.3); Eosinophils Percent Auto 4.3 % (0-4.4); Hematocrit 46.6 % (42.0-52.0); Hemoglobin 14.9 g/dL (14.0-18.0); Immature Granulocyte Absolute 0.01 K/mm3 (0.00-0.031); Immature Granulocyte Percent A 0.1 % (0-0.5); Lymphocytes Absolute Auto 2.46 K/mm3 (0.9-3.2); Lymphocytes Percent Auto 29.4 % (18.3-44.2); Mean Corpuscular Hemoglobin 30.3 pg (26-34); Mean Corpuscular Volume 94.9 fl (80-100); Mean Platelet Volume 10.4 fl (7.4-10.4); Monocytes Absolute Auto 0.6 K/mm3 (0.1-0.6); Monocytes Percent Auto 6.8 % (2.6-8.5); Neutrophils Absolute Auto 4.9 K/mm3 (1.3-6.7); Neutrophils Percent Auto 58.8 % (45.5-73.1); Platelet Count Result 207 k/mm3 (150-375); Red Blood Count 4.91 M/mm3 (4.6-6.20); Red Cell Distribution Width 13.2 % (11.5-14.5); White Blood Count 8.4 K/mm3 (4.5-10.0)
[2022-07-03 07:49] LABS: Alanine Aminotransferase 27 U/L (6-50); Albumin Level 4.7 g/dL (3.5-5.1); Alkaline Phosphatase 107 U/L (38-126); Anion Gap 7 mmol/L (8-16); Aspartate Amino Transferase 31 U/L (17-59); Bilirubin,Total 0.6 mg/dL (0.2-1.3); Blood Urea Nitrogen 13 mg/dL (9-20); Carbon Dioxide 29 mmol/L (22-30); Chloride 105 mmol/L (98-107); Cholesterol 159 mg/dL (0-200); Estimated Glomerular Filt Rate > 60; Glucose 101 mg/dL (65-110); HDL Direct 34 mg/dL; Potassium 4.3 mmol/L (3.4-5.0); Sodium 141 mmol/L (137-145); Triglycerides 93 mg/dL (<150)
[2022-07-03 08:01] LABS: LDL Cholesterol Direct 100 mg/dL
== END 2022-07-03 07:10 | disposition home or self-care (01) ==
PROVIDERS: PCP Family Medicine; Visit Provider Physician Assistant
DX: R21 Rash and other nonspecific skin eruption (principal); I10 Essential (primary) hypertension
CPT/HCPCS: 36415; 80053; 80061; 85025

== ENCOUNTER 2022-07-22 07:39 | Outpatient (CLI) | payer BC, OTHER, SELFPAY ==
--- NOTE | ~2022-07-22 | MR_ITS ---
EXAMINATION: MR brain/brain stem wo/w con DATE: 07/22/2022 08:32 INDICATION: Confusion. Memory loss. TECHNIQUE: Magnetic resonance imaging (MRI) of the brain and brainstem was performed without and with 20 mL MultiHance intravenous contrast. COMPARISON: None. FINDINGS: There is no intracranial hemorrhage, acute infarction, or abnormal intracranial mass lesion . There are scattered areas of nonspecific increased T2-weighted signal intensity in the cerebral whi te matter, which is within normal limits for the patient's age. The ventricles are normal in size. Th ere is a trace left mastoid effusion. There is mucosal thickening in the paranasal sinuses. The orbit s are normal. IMPRESSION: 1. Normal aging brain. Reviewed, dictated and finalized at location [facility]. IMPRESSION: 1. Normal aging brain.
== END 2022-07-22 07:40 ==
LOC: MICIMG 07:40
PROVIDERS: PCP Family Medicine; Visit Provider Physician Assistant
DX: R41.3 Other amnesia (principal); R45.1 Restlessness and agitation
CPT/HCPCS: 70553; A9577

== ENCOUNTER 2022-11-23 11:47 | Emergency (ER) | payer BC, OTHER, SELFPAY ==
--- NOTE | ~2022-11-23 | CT_ITS ---
EXAMINATION: CT abdomen pelvis w con DATE: 11/23/2022 13:26 INDICATION: Abdominal pain, nausea, vomiting, diarrhea TECHNIQUE: Computed tomography (CT) of the abdomen was performed with 100 CC Omnipaque 350 intravenou s contrast. Automated exposure control and iterative reconstruction technique were employed. Exam dos e: 1555.96 mGy-cm total exam DLP. COMPARISON: 09/08/2020 CT abdomen pelvis FINDINGS: The lung bases are clear. Normal heart size. No pericardial or pleural effusion. Small sliding hiatal hernia. Postoperative change of the stomach. The gallbladder is distended. No gallbladder wall thickening or pericholecystic fluid or fat strandin g or bile duct dilatation. No pancreatic duct dilatation. Normal morphology of the adrenal glands. Occasional bilateral renal cysts, measuring up to approximately 1.4 cm maximal dimension. Approximately 3 mm nonobstructing lower pole right renal calculus and approximately 2.5 mm nonobstruc ting mid left renal calculus. No ureteral calculus or hydroureteronephrosis is noted on either side. Urinary bladder is relatively evacuated. Mild prostate enlargement and minimal calcification. Bilateral vas deferens calcifications, which is usually associated with diabetes Normal caliber of the abdominal aorta. No intraperitoneal or retroperitoneal or pelvic mass lesion or adenopathy or ascites. No bowel obstruction or intraperitoneal free air. Degenerative changes of the thoracic and lumbar spine. No suspicious osteolytic or osteoblastic lesio ns are noted. IMPRESSION: No bowel obstruction or intraperitoneal free air Small sliding hiatal hernia Postoperative change of the stomach Bilateral renal cysts Minimal nonobstructive bilateral nephrolithiasis Bilateral vas deferens calcifications, usually associated with diabetes Reviewed, dictated and finalized at [facility]. Reviewed, dictated and finalized at location A.
[2022-11-23 11:54] VITALS: BP 148/97; PULSE 72; RESP 18; TEMP 36.4; O2SAT 98
[2022-11-23 12:13] LABS: Basophils Percent Auto 0.3 % (0.2-1.2); Eosinophils Absolute Auto 0.2 K/mm3 (0-0.3); Eosinophils Percent Auto 2.8 % (0-4.4); Hematocrit 44.7 % (42.0-52.0); Hemoglobin 14.3 g/dL (14.0-18.0); Immature Granulocyte Absolute 0.01 K/mm3 (0.00-0.031); Immature Granulocyte Percent A 0.1 % (0-0.5); Lymphocytes Absolute Auto 1.86 K/mm3 (0.9-3.2); Mean Corpuscular Volume 93.7 fl (80-100); Mean Platelet Volume 10.6 fl (7.4-10.4); Monocytes Absolute Auto 0.9 K/mm3 (0.1-0.6); Monocytes Percent Auto 13.5 % (2.6-8.5); Neutrophils Absolute Auto 3.9 K/mm3 (1.3-6.7); Neutrophils Percent Auto 56.3 % (45.5-73.1); Platelet Count Result 193 k/mm3 (150-375); Red Blood Count 4.77 M/mm3 (4.6-6.20); Red Cell Distribution Width 12.7 % (11.5-14.5); White Blood Count 6.9 K/mm3 (4.5-10.0)
[2022-11-23 12:23] LABS: Alanine Aminotransferase 20 U/L (6-50); Albumin Level 4.4 g/dL (3.5-5.1); Alkaline Phosphatase 90 U/L (38-126); Anion Gap 9 mmol/L (8-16); Aspartate Amino Transferase 26 U/L (17-59); Bilirubin,Total 0.7 mg/dL (0.2-1.3); Blood Urea Nitrogen 12 mg/dL (9-20); Carbon Dioxide 24 mmol/L (22-30); Chloride 103 mmol/L (98-107); Estimated CRCL calculation 121 ml/min; Estimated Glomerular Filt Rate > 60; Glucose 102 mg/dL (65-110); Lipase 84 U/L (23-300); Potassium 4.3 mmol/L (3.4-5.0); Sodium 136 mmol/L (137-145)
--- NOTE | 2022-11-23 12:39 | ED.ABDPAIN ---
HPI - Abdominal Pain General Chief Complaint: Abdominal Pain Stated Complaint: abdominal pain Time Seen by Provider: 11/23/22 12:27 History of Present Illness HPI narrative: 57-year-old male with a history of gastric bypass in 2019, hypertension, diabetes reports for evaluation for nausea, vomiting and diarrhea x1 week. Patient states at times he gets diarrhea after he eats a lot of sugar due to dumping. States that usually only last a few days and then self resolves. He states it is abnormal for his diarrhea to persist for a week which is what caused him to come to the ED today. He is reporting abdominal cramping and pain that is worse in the suprapubic region and right lower quadrant. He reports having nausea and one episode of emesis 5 days ago, no emesis since. He states he has been having 3-4 episodes of watery diarrhea per day. He does report taking an antibiotic 1 month ago for an ear infection. He denies recent surgeries or hospitalizations, travel, camping. Denies melena, hematochezia, dysentery. His last bowel movement was this morning and normal. Reports taking Imodium no nausea medications that were prescribed by his gastric bypass surgeon without improvement. States he does take his gastric bypass vitamins daily. His PCP is Dr. Carpenter. Denies fever, body aches, chest pain or shortness of breath, cough or congestion, hematuria or dysuria, flank pain. Last bowel movement was at 0300 this morning. Related Data Allergies Allergy/AdvReac Type Severity Reaction Status Date / Time NSAIDS (Non-Steroidal Allergy Mild UNABLE TO Verified 10/21/22 08:02 Anti-Inflamma TAKE DUE TO GASTRIC BYPASS SURGERY Review of Systems Review of Systems: CONSTITUTIONAL: Denies fever, chills EYES: Denies visual changes, redness, or discharge. ENT: Denies rhinorrhea, congestion, sore throat, or otalgia. CARDIOVASCULAR: Denies chest pain, palpitations, or edema. RESPIRATORY: Denies cough or dyspnea. GASTROINTESTINAL: See HPI GENITOURINARY: Denies dysuria or hematuria. SKIN: Denies rash or itching. MUSCULOSKELETAL: Denies back pain, joint pain, or myalgia. NEUROLOGIC: Denies headache, numbness, dizziness, or weakness. PSYCHIATRIC: Denies anxiety or depression. [facility] Past Medical History Medical History Arthritis of knee, degenerative Benign essential HTN Cough Diabetes mellitus Diabetic neuropathy Hand, foot and mouth disease Hypertension Influenza A MDD (major depressive disorder), recurrent episode, moderate Morbid (severe) obesity due to excess calories TALIB (obstructive sleep apnea) Pannus, abdominal Rash Thoracic spondylosis Surgical History Surgical History History of appendectomy History of gastric bypass 04/07/18 Hx of total knee arthroplasty bilateral Family History Family History Father Hypertension Family history of chronic obstructive pulmonary disease Diabetes mellitus Family history of arthritis Patient's father is , Onset Age: 72 Sibling Hypertension Family history of chronic obstructive pulmonary disease Patient's sister is , Onset Age: 54 Patient's brother is in good health Mother Family history of lymphoma Patient's mother is , Onset Age: 54 Social History Social History Social History: Smoking packs per day: 1 Smoking cigarettes per day: 20.0 Years smoked: 30 Smoking pack-years: 30.00 Smoking status: Current every day smoker Tobacco type: cigarettes Second hand tobacco smoke exposure: Yes Alcohol intake: former Substance use: former Substance use type: marijuana Lack of Transportation: No Lack of Food: Never True Current Housing: I Have Housing Concerned Abo
[2022-11-23 12:43] VITALS: BP 118/74; PULSE 67; RESP 18; O2SAT 97
[2022-11-23 12:52] LABS: Appearance Urine Clear (Clear); Bilirubin Urine 1+ (Negative); Blood Urine Negative (Negative); Color Urine Dark Yellow (Yellow); Glucose Urine UA Negative (Negative); Ketones Urine Trace mg/dL (Negative); Leukocyte Esterase Ur Negative LEU/UL (Negative); Nitrate Urine Negative (Negative); Protein Urine Negative (Negative); Specific Grav Ur 1.023 (1.001-1.035); pH Urine 5.5 (5.0-9.0)
[2022-11-23 12:57] LABS: Add Urine Microscopic? NO
[2022-11-23] MEDS: ONDANSETRON INJ 4 MG/2 ML VIAL IV PUSH (13:01)
[2022-11-23] MEDS: SODIUM CHLORIDE 0.9% IV 1,000 ML 999 ML IV CONT (13:01)
[2022-11-23 14:57] VITALS: BP 120/74; PULSE 82; RESP 18; O2SAT 99
== END 2022-11-23 14:59 | disposition home or self-care (01) ==
PROVIDERS: Emergency Medicine; Emergency Provider Physician Assistant; PCP Family Medicine
DX: R11.2 Nausea with vomiting, unspecified (principal); R19.7 Diarrhea, unspecified; I10 Essential (primary) hypertension; E11.40 Type 2 diabetes mellitus with diabetic neuropathy, unspecified; M17.9 Osteoarthritis of knee, unspecified; Z98.84 Bariatric surgery status; E66.01 Morbid (severe) obesity due to excess calories; Z68.37 Body mass index [BMI] 37.0-37.9, adult; G47.33 Obstructive sleep apnea (adult) (pediatric); Z96.653 Presence of artificial knee joint, bilateral; K44.9 Diaphragmatic hernia without obstruction or gangrene; N28.1 Cyst of kidney, acquired; N20.0 Calculus of kidney
CPT/HCPCS: 36415; 74177; 80053; 81003; 83690; 85025; 96361; 96374; 99284; J2405; J7030; Q9967

== ENCOUNTER 2022-11-23 19:42 | Outpatient (NON) | payer BC, OTHER, SELFPAY ==
[2022-11-23 21:31] LABS: Toxigenic C. Diff NEGATIVE (NEGATIVE)
== END 2022-11-23 19:43 | disposition home or self-care (01) ==
LOC: ANHLAB 19:46
PROVIDERS: PCP Family Medicine; Visit Provider Family Medicine
DX: E11.9 Type 2 diabetes mellitus without complications (principal); I10 Essential (primary) hypertension; Z87.442 Personal history of urinary calculi
CPT/HCPCS: 87045; 87427; 87449; 87493; 89055

== ENCOUNTER 2023-07-02 12:47 | Emergency (ER) | payer BC, OTHER, SELFPAY ==
[2023-07-02 13:02] VITALS: BP 128/82; PULSE 63; RESP 14; TEMP 36.9; O2SAT 100
--- NOTE | 2023-07-02 13:42 | ED.EXTPRO ---
HPI - Extremity Problem General Chief complaint: Extremity Problem,Nontraumatic Stated complaint: Left Foot Big Toe Pain Time Seen by Provider: 07/02/23 13:35 Source: patient and RN notes reviewed Mode of arrival: ambulatory Limitations: no limitations History of Present Illness HPI Narrative: Patient presents today complaining of left 1st toe redness x1 week. Reports drainage from under the toenail since last night. He is currently pain-free due to diabetic neuropathy. Reports that he has a podiatry appointment in 1 week. No [id number] treatment prior to arrival. Related Data Home Medications Medication Instructions Recorded Confirmed atorvastatin 40 mg tablet 40 mg PO DAILY 07/02/23 07/02/23 Allergies Allergy/AdvReac Type Severity Reaction Status Date / Time NSAIDS (Non-Steroidal Allergy Mild UNABLE TO Verified 07/02/23 12:49 Anti-Inflamma TAKE DUE TO GASTRIC BYPASS SURGERY Review of Systems Review of Systems: CONSTITUTIONAL: Denies body aches, fever, chills, or sweats. EYES: Denies visual changes, redness, or discharge. ENT: Denies rhinorrhea, congestion, sore throat, or otalgia. CARDIOVASCULAR: Denies chest pain, palpitations, or edema. RESPIRATORY: Denies cough or dyspnea. GASTROINTESTINAL: Denies abdominal pain, nausea, vomiting, or diarrhea. GENITOURINARY: Denies dysuria or hematuria. SKIN: Denies rash, itching, or wounds. MUSCULOSKELETAL: Left 1st toe redness and drainage NEUROLOGIC: Denies headache, numbness, tingling, or weakness. PSYCH: Denies depression or anxiety. [facility] Past Medical History Medical History Arthritis of knee, degenerative Benign essential HTN Cough Diabetes mellitus Diabetic neuropathy Hand, foot and mouth disease Hypertension Influenza A MDD (major depressive disorder), recurrent episode, moderate Morbid (severe) obesity due to excess calories TALIB (obstructive sleep apnea) Pannus, abdominal Rash Thoracic spondylosis Surgical History Surgical History History of appendectomy History of gastric bypass 04/07/18 Hx of total knee arthroplasty bilateral Family History Family History Father Hypertension Family history of chronic obstructive pulmonary disease Diabetes mellitus Family history of arthritis Patient's father is , Onset Age: 72 Sibling Hypertension Family history of chronic obstructive pulmonary disease Patient's sister is , Onset Age: 54 Patient's brother is in good health Mother Family history of lymphoma Patient's mother is , Onset Age: 54 Social History Social History Social History: Caffeine-coffee/tea Smoking packs per day: 1 Smoking cigarettes per day: 20.0 Years smoked: 30 Smoking pack-years: 30.00 Smoking status: Current every day smoker Tobacco type: cigarettes Second hand tobacco smoke exposure: Yes Smoking end date: 11/15/22 Alcohol intake: former Substance use: current Substance use type: marijuana Other substance usage details: Edibles Lack of Transportation: No Lack of Food: Never True Current Housing: I Have Housing Concerned About Future Housing: No Difficulty Paying Gas/Electric Bills: No Difficulty Paying for Meds: No Currently Unemployed: No Education: Associate Degree Difficulty w/ Childcare or Family Care: No Living arrangements: with family Occupation/Education: occupation 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
== END 2023-07-02 13:50 | disposition home or self-care (01) ==
PROVIDERS: Emergency Provider Nurse Practitioner; PCP Family Medicine
DX: L03.032 Cellulitis of left toe (principal); Z87.891 Personal history of nicotine dependence; F12.90 Cannabis use, unspecified, uncomplicated; I10 Essential (primary) hypertension; E11.42 Type 2 diabetes mellitus with diabetic polyneuropathy; E66.01 Morbid (severe) obesity due to excess calories; Z68.38 Body mass index [BMI] 38.0-38.9, adult; Z98.84 Bariatric surgery status; Z96.653 Presence of artificial knee joint, bilateral
CPT/HCPCS: 99213; G0463

== ENCOUNTER 2023-07-12 07:19 | Outpatient (CLI) | payer BC, OTHER, SELFPAY ==
[2023-07-12 08:09] LABS: Basophils Percent Auto 0.5 % (0.2-1.2); Eosinophils Absolute Auto 0.3 K/mm3 (0-0.3); Eosinophils Percent Auto 3.1 % (0-4.4); Hematocrit 43.6 % (42.0-52.0); Hemoglobin 13.8 g/dL (14.0-18.0); Immature Granulocyte Absolute 0.02 K/mm3 (0.00-0.031); Immature Granulocyte Percent A 0.2 % (0-0.5); Lymphocytes Absolute Auto 3.05 K/mm3 (0.9-3.2); Lymphocytes Percent Auto 34.8 % (18.3-44.2); Mean Corpuscular HGB Conc 31.7 g/dl (32-36); Mean Corpuscular Hemoglobin 29.3 pg (26-34); Mean Corpuscular Volume 92.6 fl (80-100); Mean Platelet Volume 11.2 fl (7.4-10.4); Monocytes Absolute Auto 0.7 K/mm3 (0.1-0.6); Monocytes Percent Auto 8.3 % (2.6-8.5); Neutrophils Absolute Auto 4.7 K/mm3 (1.3-6.7); Neutrophils Percent Auto 53.1 % (45.5-73.1); Platelet Count Result 231 k/mm3 (150-375); Red Blood Count 4.71 M/mm3 (4.6-6.20); Red Cell Distribution Width 12.9 % (11.5-14.5); White Blood Count 8.8 K/mm3 (4.5-10.0)
[2023-07-12 08:17] LABS: Alanine Aminotransferase 26 U/L (6-50); Albumin Level 4.3 g/dL (3.5-5.1); Alkaline Phosphatase 97 U/L (38-126); Anion Gap 5 mmol/L (4-12); Aspartate Amino Transferase 38 U/L (17-59); Bilirubin,Total 0.6 mg/dL (0.2-1.3); Blood Urea Nitrogen 13 mg/dL (9-20); Carbon Dioxide 27 mmol/L (22-30); Chloride 107 mmol/L (98-107); Cholesterol 117 mg/dL (0-200); Estimated Glomerular Filt Rate > 60; Glucose 102 mg/dL (65-110); HDL Direct 34 mg/dL; Potassium 4.2 mmol/L (3.4-5.0); Sodium 139 mmol/L (137-145); Triglycerides 120 mg/dL (<150)
[2023-07-12 08:28] LABS: LDL Cholesterol Direct 76 mg/dL
[2023-07-12 10:08] LABS: Hemoglobin A1C 5.6 % (<5.7)
[2023-07-12 10:14] LABS: Creatinine Urine 64.8 mg/dL
[2023-07-12 10:48] LABS: MALB Creatinine Ratio < 9.3 mg/g (0-30); Microalbumin Urine Random < 6.0 mg/L (0-16.7)
[2023-07-16 16:13] LABS: Vitamin D 1,25 (OH)2 Total 56 pg/mL (18-72); Vitamin D2 1,25 (OH)2 <8 pg/mL; Vitamin D3 1,25 (OH)2 56 pg/mL
== END 2023-07-12 07:20 | disposition home or self-care (01) ==
LOC: ANHLAB 07:20
PROVIDERS: PCP Family Medicine; Visit Provider Family Medicine
DX: R79.89 Other specified abnormal findings of blood chemistry (principal); I10 Essential (primary) hypertension; E11.9 Type 2 diabetes mellitus without complications; E03.9 Hypothyroidism, unspecified; E78.2 Mixed hyperlipidemia
CPT/HCPCS: 36415; 80053; 80061; 82043; 82652; 83036; 84443; 85025

== ENCOUNTER 2023-08-20 08:16 | Emergency (ER) | payer BC, OTHER, SELFPAY ==
--- NOTE | 2023-08-20 08:19 | ED.SKABFB ---
HPI - Skin/Abscess/Foreign Bdy General Chief complaint: Skin/Abscess/Foreign Body Stated complaint: boil Time Seen by Provider: 08/20/23 08:19 Source: patient Mode of arrival: ambulatory Limitations: no limitations History of Present Illness HPI narrative: Vikram is a 57-year-old male patient presenting to the clinic today with complaints of a possible boil to the left side of his perineum. He reports symptoms have been going on for approximately 4 days. Is having increased swelling and discomfort in this area. Patient denies any fever, chills, or body aches. No problems with bowel or urine. Related Data Home Medications Medication Instructions Recorded Confirmed atorvastatin 40 mg tablet 40 mg PO DAILY 07/02/23 07/11/23 Allergies Allergy/AdvReac Type Severity Reaction Status Date / Time NSAIDS (Non-Steroidal Allergy Mild UNABLE TO Verified 07/11/23 15:41 Anti-Inflamma TAKE DUE TO GASTRIC BYPASS SURGERY Review of Systems Review of Systems: Pertinent positives per HPI. Patient denies any fever, chills, rash, headache, visual changes, dizziness, cough, runny nose, sore throat, shortness of breath, chest pain, palpitations, nausea, vomiting, diarrhea, constipation, abdominal pain, or any urinary issues. [facility] Past Medical History Medical History Acute alcoholic pancreatitis Alcohol abuse Arthritis of knee, degenerative Benign essential HTN Chronic ethmoidal sinusitis Chronic frontal sinusitis Cough Diabetes mellitus Diabetic neuropathy Dog bite Dysfunction of both eustachian tubes Hand, foot and mouth disease Hypertension Influenza A MDD (major depressive disorder), recurrent episode, moderate Memory loss Morbid (severe) obesity due to excess calories TALIB (obstructive sleep apnea) Pannus, abdominal Perforated tympanic membrane Rash Thoracic spondylosis Surgical History Surgical History History of appendectomy History of gastric bypass 04/07/18 Hx of total knee arthroplasty bilateral Family History Family History Father Hypertension Family history of chronic obstructive pulmonary disease Diabetes mellitus Family history of arthritis Patient's father is , Onset Age: 72 Sibling Hypertension Family history of chronic obstructive pulmonary disease Patient's sister is , Onset Age: 54 Patient's brother is in good health Mother Family history of lymphoma Patient's mother is , Onset Age: 54 Social History Social History Social History: Caffeine-coffee/tea Smoking packs per day: 1 Smoking cigarettes per day: 20.0 Years smoked: 30 Smoking pack-years: 30.00 Smoking status: Current every day smoker Tobacco type: cigarettes Second hand tobacco smoke exposure: Yes Smoking end date: 11/15/22 Alcohol intake: former Substance use: current Substance use type: marijuana Other substance usage details: Edibles Lack of Transportation: No Lack of Food: Never True Current Housing: I Have Housing Concerned About Future Housing: No Difficulty Paying Gas/Electric Bills: No Difficulty Paying for Meds: No Currently Unemployed: No Education: Associate Degree Difficulty w/ Childcare or Family Care: No Living arrangements: with family Occupation/Education: occupation 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 There is no relevant family history pert
[2023-08-20 08:26] VITALS: BP 154/84; PULSE 65; RESP 16; TEMP 36.6; O2SAT 97
== END 2023-08-20 08:45 | disposition home or self-care (01) ==
PROVIDERS: Emergency Provider Nurse Practitioner Family; PCP Family Medicine
DX: L02.215 Cutaneous abscess of perineum (principal); Z87.891 Personal history of nicotine dependence; F12.90 Cannabis use, unspecified, uncomplicated; I10 Essential (primary) hypertension; E11.42 Type 2 diabetes mellitus with diabetic polyneuropathy; E66.01 Morbid (severe) obesity due to excess calories; Z68.38 Body mass index [BMI] 38.0-38.9, adult; Z98.84 Bariatric surgery status; Z96.653 Presence of artificial knee joint, bilateral
CPT/HCPCS: 99213; G0463

== ENCOUNTER 2023-08-21 18:31 | Observation (INO) | payer BC, OTHER, SELFPAY ==
--- NOTE | ~2023-08-21 | CT_ITS ---
CT abdomen pelvis w con Ordering provider: Milad Martino History: . perineal abscess . Comparison: None. Technique: CT abdomen with IV and without oral contrast. Findings: VISUALIZED LOWER CHEST: Minimal left dependent atelectatic changes. UPPER ABDOMINAL ORGANS: Liver: Hepatomegaly. Gallbladder: Small-to the neck of the neck of the gallbladder which may indicate stones. Ultrasound e valuation advised. Spleen: Normal. Stomach/duodenum: Postoperative changes in the stomach. Pancreas: Normal. Adrenals: Normal. Kidneys: 5 mm stone in the right kidney lower pole. Tiny cysts in the right kidney mid and upper pole . 4 mm stone is seen in the left kidney mid pole. Tiny cyst in the left kidney upper, mid and lower chuck e. VISUALIZED BOWEL AND MESENTERY: No evidence of diverticulitis. No evidence of appendicitis. The bowel is otherwise normal. No free air or free fluid. No mesenteric lymphadenopathy. RETROPERITONEUM: Mild atheromatous disease of the abdominal aorta. No retroperitoneal lymphadenopathy . MUSCULOSKELETAL: An abscess is seen in the left perineal area extending from posteriorly to anteriorl y and measures 7.8 x 2 x 1.5 cm. Otherwise, The superficial soft tissues are normal. Age appropriate degenerative changes of the spine. . Symphysitis. IMPRESSION: Left perineal abscess measuring 7.8 x 2 x 1.5 cm. Bilateral renal stones. Bilateral renal cysts Hepatomegaly Reviewed, dictated and finalized at location A.
[2023-08-21 18:32] VITALS: BP 183/93; PULSE 76; RESP 18; TEMP 37.3; O2SAT 99
--- NOTE | 2023-08-21 18:54 | ED.GENADULT ---
HPI - General Adult General Chief complaint: Skin/Abscess/Foreign Body <Milad Martino PA-C - Last Filed: 08/22/23 02:38> Stated complaint: boil on groin <RIAZ Horn Last Filed: 08/22/23 02:38> Time Seen by Provider: 08/21/23 18:53 <RIAZ Horn Last Filed: 08/22/23 02:38> Source: patient <RIAZ Horn Last Filed: 08/22/23 02:38> Mode of arrival: ambulatory <RIAZ Horn Last Filed: 08/22/23 02:38> Limitations: no limitations <RIAZ Horn Last Filed: 08/22/23 02:38> History of Present Illness HPI narrative: This is a 57-year-old male with PMH of Diabetes, cellulitis, obesity who presents to the ED for chief complaint of possible abscess to the perianal /scrotal area. Patient reports that he noticed a boil near the anus about a week ago. States that since then it seems to be getting more painful and spreading towards the scrotum. Reports that his scrotum is nearly 3 times its normal size. Reports the swelling seems to go from the right side of the perineum and to the left groin. Endorses chills but no recorded fevers. States that he has not had any need for diabetes medications since his gastric bypass many years ago. Denies abdominal pain, nausea, vomiting, <RIAZ Horn Last Filed: 08/22/23 02:38> Related Data Home medications: Home Medications Medication Instructions Recorded Confirmed atorvastatin 40 mg tablet 40 mg PO DAILY 07/02/23 08/22/23 albuterol sulfate 90 mcg/actuation 2 inh inhalation Q6-8H PRN Wheezing 08/22/23 08/22/23 aerosol inhaler amlodipine 10 mg tablet 10 mg PO DAILY 08/22/23 08/22/23 fluoxetine 40 mg capsule 40 mg PO DAILY 08/22/23 08/22/23 fluticasone propionate 50 1 spray intranasal Q6-8H PRN 06/07/24 06/07/24 mcg/actuation nasal Allergy Symptoms spray,suspension omeprazole 20 mg capsule,delayed 20 mg PO DAILY 08/22/23 08/22/23 release <Milad Martino PA-C - Last Filed: 08/22/23 02:38> Allergies/adverse reactions: Allergies Allergy/AdvReac Type Severity Reaction Status Date / Time NSAIDS (Non-Steroidal AdvReac Mild UNABLE TO Verified 08/21/23 18:36 Anti-Inflamma TAKE DUE TO GASTRIC BYPASS SURGERY <Milad Martino PA-C - Last Filed: 08/22/23 02:38> Review of Systems Review of Systems: All systems as dictated in HPI <Milad Martino PA-C - Last Filed: 08/22/23 02:38> [facility] Past Medical History Medical History: Medical History Acute alcoholic pancreatitis Alcohol abuse Arthritis of knee, degenerative Benign essential HTN Chronic ethmoidal sinusitis Chronic frontal sinusitis Cough Diabetes mellitus Diabetic neuropathy Dog bite Dysfunction of both eustachian tubes Hand, foot and mouth disease Hypertension Influenza A MDD (major depressive disorder), recurrent episode, moderate Memory loss Morbid (severe) obesity due to excess calories TALIB (obstructive sleep apnea) Pannus, abdominal Perforated tympanic membrane Rash Thoracic spondylosis <Milad Martino PA-C - Last Filed: 08/22/23 02:38> Surgical History Surgical History: Surgical History History of appendectomy History of gastric bypass 04/07/18 Hx of total knee arthroplasty bilateral <Milad Martino PA-C - Last Filed: 08/22/23 02:38> Family History Family History: Family History Father Hypertension Family history of chronic obstructive pulmonary disease Diabetes mellitus Family history of arthritis Patient's father is , Onset Age: 72 Sibling Hypertension Family history of chronic obstructive pulmonary disease Patient's sister is , Onset Age: 54 Patient's brother is in good health Mother Family history of lymphoma Patient's mother
[2023-08-21] MEDS: SODIUM CHLORIDE 0.9% IV 1,000 ML 999 ML IV CONT (19:46)
[2023-08-21] MEDS: ONDANSETRON INJ 4 MG/2 ML VIAL IV PUSH (19:46)
[2023-08-21] MEDS: MORPHINE SULFATE (*CRX) 4 MG/ML INJ IV PUSH (19:46)
[2023-08-21] MEDS: CEFEPIME 1 GM/NS 50 ML 1 GM/50 ML BAG IVPB (19:56)
[2023-08-21 20:14] LABS: Basophils Percent Auto 0.2 % (0.2-1.2); Eosinophils Absolute Auto 0.1 K/mm3 (0-0.3); Eosinophils Percent Auto 0.4 % (0-4.4); Hematocrit 41.7 % (42.0-52.0); Hemoglobin 13.5 g/dL (14.0-18.0); Immature Granulocyte Absolute 0.04 K/mm3 (0.00-0.031); Immature Granulocyte Percent A 0.3 % (0-0.5); Lymphocytes Absolute Auto 2.19 K/mm3 (0.9-3.2); Lymphocytes Percent Auto 16.1 % (18.3-44.2); Mean Corpuscular HGB Conc 32.4 g/dl (32-36); Mean Corpuscular Volume 92.7 fl (80-100); Mean Platelet Volume 11.4 fl (7.4-10.4); Monocytes Percent Auto 7.4 % (2.6-8.5); Neutrophils Absolute Auto 10.3 K/mm3 (1.3-6.7); Neutrophils Percent Auto 75.6 % (45.5-73.1); Platelet Count Result 194 k/mm3 (150-375); White Blood Count 13.6 K/mm3 (4.5-10.0)
[2023-08-21 20:27] LABS: Alanine Aminotransferase 20 U/L (6-50); Albumin Level 4.7 g/dL (3.5-5.1); Alkaline Phosphatase 95 U/L (38-126); Anion Gap 11 mmol/L (4-12); Aspartate Amino Transferase 27 U/L (17-59); Blood Urea Nitrogen 16 mg/dL (9-20); CRP 5.9 mg/dL (<1.0); Calcium 9.5 mg/dL (8.4-10.2); Carbon Dioxide 23 mmol/L (22-30); Chloride 100 mmol/L (98-107); Estimated CRCL calculation 138 ml/min; Estimated Glomerular Filt Rate > 60; Glucose 106 mg/dL (65-110); Potassium 4.2 mmol/L (3.4-5.0); Sodium 134 mmol/L (137-145)
[2023-08-21 21:08] LABS: Appearance Urine Clear (Clear); Bacteria Urine None Seen /hpf; Bilirubin Urine Negative (Negative); Blood Urine Negative (Negative); Color Urine Yellow (Yellow); Glucose Urine UA Negative (Negative); Ketones Urine Trace mg/dL (Negative); Leukocyte Esterase Ur Trace LEU/UL (Negative); Nitrate Urine Negative (Negative); Non Pathogenic Casts 0-2; Protein Urine Negative (Negative); Specific Grav Ur 1.019 (1.001-1.035); Squamous Epithelial Cell Urine None Seen /hpf (Few); WBC Urine 0-5 /hpf (0-3)
[2023-08-21 21:12] LABS: Add Urine Microscopic? YES
[2023-08-21] MEDS: VANCOMYCIN 1,500 MG/NS 500 ML 1,500 MG/500 ML BAG 250 MG IVPB (21:13)
[2023-08-21 22:09] VITALS: BP 171/79; PULSE 84; RESP 18; O2SAT 100
[2023-08-22] VITALS (17 sets, daily range): BP systolic 111–153; BP diastolic 60–92; PULSE 75–88; RESP 12–22; TEMP 37.1–38.3; O2SAT 94–100; BMI 38.0
--- NOTE | 2023-08-22 01:14 | ADMGEN ---
This patient, Vikram Keller, was admitted to 3 [facility] Surg Room 310-01. Patient/family oriented to hospital policies and general routines including ID bracelet, bed and alarms, visiting hours, pain management, procedures, bathroom and other care routines, personal items, smoking policy, room service/diet, and visiting hours. Information on how to activate the Rapid Response Team has been discussed. Patient/Family are encouraged to report perceived risks to care and to ask questions if they do not understand what they are told or what they should do.
[2023-08-22] MEDS: HYDROmorphone HCL INJ (*CRX) 1 MG/ML SYR 0.5 MG IV PUSH ×3 (01:34→12:27)
[2023-08-22] MEDS: SODIUM CHLORIDE 0.9% IV 1,000 ML 125 ML IV CONT (04:45)
--- NOTE | 2023-08-22 06:00 | ECG_ITS ---
[facility] [address] Test Date: 2023-08-22 Pat Name: Vikram Keller Department: Room: 310 Gender: M Exhibit Technician: MARIA A : 1965 Requested By: Milad Myers Order Number: [id number] Alaina MD: Talib Powers M.D. Measurements Intervals [place] Rate: 77 P: -21 [place]: 145 QRS: -60 QRSD: 114 T: 20 QT: 364 QTc: 414 Interpretive Statements SINUS RHYTHM MARKED LEFT AXIS DEVIATION [QRS AXIS < -30] SUSPECT PREVIOUS INFERIOR WALL LA INCOMPLETE RIGHT BUNDLE BRANCH BLOCK [90+ ms QRS DURATION, TERMINAL R IN V1/V2, 40+ ms S IN I/aVL/V4/V5/V6] ABNORMAL ECG No previous ECG available for comparison Electronically Signed On 08-23-2023 07:43:42 CDT by Talib Powers M.D.
[2023-08-22 06:04] LABS: Estimated CRCL calculation 138 ml/min; Estimated Glomerular Filt Rate > 60
[2023-08-22] MEDS: CEFEPIME 2 GM/NS 50 ML 2 GM/50 ML BAG IVPB ×2 (07:39→20:35)
--- NOTE | 2023-08-22 08:22 | PM.IMHP ---
H&P: HPI History of Present Illness Date/Time: 08/22/23 08:22 Chief Complaint: perianal abscess PMFSH Past Medical History Medical History Acute alcoholic pancreatitis Alcohol abuse Arthritis of knee, degenerative Benign essential HTN Chronic ethmoidal sinusitis Chronic frontal sinusitis Cough Diabetes mellitus Diabetic neuropathy Dog bite Dysfunction of both eustachian tubes Hand, foot and mouth disease Hypertension Influenza A MDD (major depressive disorder), recurrent episode, moderate Memory loss Morbid (severe) obesity due to excess calories TALIB (obstructive sleep apnea) Pannus, abdominal Perforated tympanic membrane Rash Thoracic spondylosis Surgical History Surgical History History of appendectomy History of gastric bypass 04/07/18 Hx of total knee arthroplasty bilateral Family History Family History Father Hypertension Family history of chronic obstructive pulmonary disease Diabetes mellitus Family history of arthritis Patient's father is , Onset Age: 72 Sibling Hypertension Family history of chronic obstructive pulmonary disease Patient's sister is , Onset Age: 54 Patient's brother is in good health Mother Family history of lymphoma Patient's mother is , Onset Age: 54 Social History Social History Social History: Caffeine-coffee/tea Smoking packs per day: 0.5 Smoking cigarettes per day: 10.0 Years smoked: 35 Smoking pack-years: 17.50 Smoking status: Current every day smoker Tobacco type: cigarettes Second hand tobacco smoke exposure: Yes Smoking end date: 11/15/22 Alcohol intake: former Substance use: current Substance use type: marijuana Other substance usage details: Edibles Do You Feel Safe in your Home?: Yes Lack of Transportation: No Lack of Food: Never True Current Housing: I Have Housing Concerned About Future Housing: No Difficulty Paying Gas/Electric Bills: No Difficulty Paying for Meds: No Currently Unemployed: No Education: Associate Degree Difficulty w/ Childcare or Family Care: No Living arrangements: with family Occupation/Education: occupation 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 Gender identity (if verbalized by the patient): Male Sexual Orientation (if Verbalized by the Patient): Straight or Heterosexual Spiritual care concerns: No Meds Home Medications and Allergies Home Medications Medication Instructions Recorded Confirmed Type tadalafil 5 mg tablet (Cialis) 5 mg PO DAILY #90 tabs 01/27/23 08/22/23 Rx lisinopril 20 mg tablet (Zestril) 20 mg PO DAILY #90 tabs 05/11/23 08/22/23 Rx atorvastatin 40 mg tablet 40 mg PO DAILY 07/02/23 08/22/23 History albuterol sulfate 90 mcg/actuation 2 inh inhalation Q6-8H PRN Wheezing 08/22/23 08/22/23 History aerosol inhaler amlodipine 10 mg tablet 10 mg PO DAILY 08/22/23 08/22/23 History fluoxetine 40 mg capsule 40 mg PO DAILY 08/22/23 08/22/23 History fluticasone propionate 50 1 spray intranasal Q6-8H PRN 08/22/23 08/22/23 History mcg/actuation nasal Allergy Symptoms spray,suspension omeprazole 20 mg capsule,delayed 20 mg PO DAILY 08/22/23 08/22/23 History release Allergies Allergy/AdvReac Type Severity Reaction Status Date / Time NSAIDS (Non-Steroidal AdvReac Mild UNABLE TO Verified 08/21/23 18:36 Anti-Inflamma TAKE DUE TO GASTRIC BYPASS SURGERY Vital Signs Vital Signs - 24 hr 08/21/23 18:32 08/21/23 22:09 08/22/23 01:20 Temperature 99.2 F 98.9 F Pulse Rate 76 84 76 Respiratory Rate 18 18 20 Blood Pressure 183/93 H 171/79 H 153/69 H Pulse Oximetry 99 100 99 Oxygen Delivery Room Air 08/22/23
--- NOTE | 2023-08-22 08:25 | PM.IMCN ---
Assessment and Plan Assessment and plan (1) Abscess of deep perineal space: Code(s): N34.0 - Urethral abscess Status: Acute Assessment and Plan: s/p complex incision and drainage left perineal abscess measuring 10 x 5 cm extending into the scrotum - Wound culture collected on 08/21: pending - Stool culture negative - Blood cultures: Final - No growth - Antibiotics: Vancomycin and cefepime, adjust pending culture sensitivities - Analgesics per surgery - DVT ppx per surgery (2) Benign essential HTN: Code(s): I10 - Essential (primary) hypertension Status: Acute Assessment and Plan: Chronic, stable on home medications. - Lisinopril 20 mg daily - Amlodipine 10 mg daily - Monitor (3) GERD (gastroesophageal reflux disease): Code(s): K21.9 - Gastro-esophageal reflux disease without esophagitis Status: Acute Assessment and Plan: Chronic, well controlled with home medications. - Omeprazole 20 mg daily HPI Date of Consult Consult date: 08/22/23 Requesting Physician: Francisca Motley PAElyC Primary Care Provider: Pauline Melgar MD Consult Narrative Narrative: Vikram Keller is a 57 year old male with past medical history of hypertension, obesity (s/p Haylee en Y gastrojejunostomy), diabetes, and alcohol abuse (sober since 09/2020) presents to the hospital for perianal abscess. Patient states that the abscess has been present for approximately 4 days. He called his PCP Dr. Carpenter and she told patient to go to urgent care, who prescribed him two antibiotics. Patient is unsure what antibiotics they were. He took one day of the antibiotics and the abscess increased in size and became more painful. Patient also noted subjective fever, chills and nausea. With noted decreased in bowel movements likely secondary to pain. Patient underwent a complex incision and drainage left perineal abscess measuring 10 x 5 cm with extension into the scrotum today with Dr. Montgomery. Wound culture pending. Blood culture and stool cultures negative. Patient remains on vancomycin and cefepime at this time. He states he is feeling much better since the procedure. He has no complaints at this time. Review of Systems Review of Systems: All systems reviewed & are unremarkable except as noted in HPI and below PMFSH Past Medical History Medical History Acute alcoholic pancreatitis Alcohol abuse Arthritis of knee, degenerative Benign essential HTN Chronic ethmoidal sinusitis Chronic frontal sinusitis Cough Diabetes mellitus Diabetic neuropathy Dog bite Dysfunction of both eustachian tubes Hand, foot and mouth disease Hypertension Influenza A MDD (major depressive disorder), recurrent episode, moderate Memory loss Morbid (severe) obesity due to excess calories TALIB (obstructive sleep apnea) Pannus, abdominal Perforated tympanic membrane Rash Thoracic spondylosis Surgical History Surgical History History of appendectomy History of gastric bypass 04/07/18 Hx of total knee arthroplasty bilateral Family History Family History Father Hypertension Family history of chronic obstructive pulmonary disease Diabetes mellitus Family history of arthritis Patient's father is , Onset Age: 72 Sibling Hypertension Family history of chronic obstructive pulmonary disease Patient's sister is , Onset Age: 54 Patient's brother is in good health Mother Family history of lymphoma Patient's mother is , Onset Age: 54 Social History Social History Social History: Caffeine-coffee/tea Smoking packs per day: 0.5 Smoking cigarettes per day: 10.0 Years smoked: 35 Smoking pack-years: 17.50
[2023-08-22 08:29] LABS: Basophils Percent Auto 0.3 % (0.2-1.2); Eosinophils Absolute Auto 0.1 K/mm3 (0-0.3); Eosinophils Percent Auto 0.5 % (0-4.4); Hemoglobin 12.2 g/dL (14.0-18.0); Immature Granulocyte Absolute 0.05 K/mm3 (0.00-0.031); Immature Granulocyte Percent A 0.3 % (0-0.5); Lymphocytes Absolute Auto 2.04 K/mm3 (0.9-3.2); Mean Corpuscular HGB Conc 31.3 g/dl (32-36); Mean Corpuscular Hemoglobin 29.7 pg (26-34); Mean Corpuscular Volume 94.9 fl (80-100); Mean Platelet Volume 11.7 fl (7.4-10.4); Monocytes Absolute Auto 1.5 K/mm3 (0.1-0.6); Monocytes Percent Auto 9.9 % (2.6-8.5); Platelet Count Result 183 k/mm3 (150-375); Red Blood Count 4.11 M/mm3 (4.6-6.20); Red Cell Distribution Width 13.2 % (11.5-14.5); White Blood Count 14.6 K/mm3 (4.5-10.0)
[2023-08-22] MEDS: VANCOMYCIN 1,500 MG/NS 500 ML 1,500 MG/500 ML BAG 250 MG IVPB ×2 (09:16→21:19)
[2023-08-22] MEDS: ACETAMINOPHEN 325 MG TABLET 650 MG PO ×2 (10:11→16:07)
--- NOTE | 2023-08-22 10:37 | PM.IMHP ---
H&P: HPI History of Present Illness Date/Time: 08/22/23 10:37 Chief Complaint: left perineal abscess Narrative: The pt is a 57 y/o M presenting c large L perineal abscess. Pt reports abscess has been worsening over last 4 days or so. Pt reports area has not drained. Pt does reports subjective f/c. Pt reports he had a boil lanced on his leg years ago. Review of Systems Review of Systems: All systems reviewed & are unremarkable except as noted in HPI and below PMFSH Past Medical History Medical History Acute alcoholic pancreatitis Alcohol abuse Arthritis of knee, degenerative Benign essential HTN Chronic ethmoidal sinusitis Chronic frontal sinusitis Cough Diabetes mellitus Diabetic neuropathy Dog bite Dysfunction of both eustachian tubes Hand, foot and mouth disease Hypertension Influenza A MDD (major depressive disorder), recurrent episode, moderate Memory loss Morbid (severe) obesity due to excess calories TALIB (obstructive sleep apnea) Pannus, abdominal Perforated tympanic membrane Rash Thoracic spondylosis Surgical History Surgical History History of appendectomy History of gastric bypass 04/07/18 Hx of total knee arthroplasty bilateral Family History Family History Father Hypertension Family history of chronic obstructive pulmonary disease Diabetes mellitus Family history of arthritis Patient's father is , Onset Age: 72 Sibling Hypertension Family history of chronic obstructive pulmonary disease Patient's sister is , Onset Age: 54 Patient's brother is in good health Mother Family history of lymphoma Patient's mother is , Onset Age: 54 Social History Social History Social History: Caffeine-coffee/tea Smoking packs per day: 0.5 Smoking cigarettes per day: 10.0 Years smoked: 35 Smoking pack-years: 17.50 Smoking status: Current every day smoker Tobacco type: cigarettes Second hand tobacco smoke exposure: Yes Smoking end date: 11/15/22 Alcohol intake: former Substance use: current Substance use type: marijuana Other substance usage details: Edibles Do You Feel Safe in your Home?: Yes Lack of Transportation: No Lack of Food: Never True Current Housing: I Have Housing Concerned About Future Housing: No Difficulty Paying Gas/Electric Bills: No Difficulty Paying for Meds: No Currently Unemployed: No Education: Associate Degree Difficulty w/ Childcare or Family Care: No Living arrangements: with family Occupation/Education: occupation 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 Gender identity (if verbalized by the patient): Male Sexual Orientation (if Verbalized by the Patient): Straight or Heterosexual Spiritual care concerns: No Meds Home Medications and Allergies Home Medications Medication Instructions Recorded Confirmed Type tadalafil 5 mg tablet (Cialis) 5 mg PO DAILY #90 tabs 01/27/23 08/22/23 Rx lisinopril 20 mg tablet (Zestril) 20 mg PO DAILY #90 tabs 05/11/23 08/22/23 Rx atorvastatin 40 mg tablet 40 mg PO DAILY 07/02/23 08/22/23 History albuterol sulfate 90 mcg/actuation 2 inh inhalation Q6-8H PRN Wheezing 08/22/23 08/22/23 History aerosol inhaler amlodipine 10 mg tablet 10 mg PO DAILY 08/22/23 08/22/23 History fluoxetine 40 mg capsule 40 mg PO DAILY 08/22/23 08/22/23 History fluticasone propionate 50 1 spray intranasal Q6-8H PRN 08/22/23 08/22/23 History mcg/actuation nasal Allergy Symptoms spray,suspension omeprazole 20 mg capsule,delayed 20 mg PO DAILY 08/22/23 08/22/23 History release Allergies Allergy/AdvReac Type Severity Reaction Status Date / Time NSAIDS (Non-Steroidal AdvReac Mild UNABLE TO Verified
--- NOTE | 2023-08-22 10:51 | WPDHPUPDATE1 ---
History and Physical Update Update Date/Time: 08/22/23 10:51 History and Physical has been reviewed, including an updated exam of the patient. There are NO changes in the patient's condition. Risks, benefits, and alternatives have been discussed and questions answered. Patient agrees to proceed with procedure.
[2023-08-22 11:44] LABS: Alanine Aminotransferase 16 U/L (6-50); Albumin Level 3.7 g/dL (3.5-5.1); Alkaline Phosphatase 82 U/L (38-126); Anion Gap 8 mmol/L (4-12); Aspartate Amino Transferase 25 U/L (17-59); Blood Urea Nitrogen 13 mg/dL (9-20); Calcium 8.6 mg/dL (8.4-10.2); Carbon Dioxide 22 mmol/L (22-30); Chloride 102 mmol/L (98-107); Estimated CRCL calculation 138 ml/min; Estimated Glomerular Filt Rate > 60; Glucose 109 mg/dL (65-110); Sodium 132 mmol/L (137-145)
[2023-08-22] MEDS: LACTATED RINGERS 1,000 ML 30 ML IV CONT (12:57)
--- NOTE | 2023-08-22 13:17 | WPDANESEPPF ---
Anes - Initial Pre Proc Eval Procedure: Operation Date: 08/22/23 15:00 Proposed Procedures p Incision and Drainage Mercedes-Rectal Abscess - Brinda Montgomery MD Date/Time: 08/22/23 13:17 Surgeon: Francisca Motley PA-C Pre Op Diagnosis: Perineal Abscess Patient Data Age: 57 Gender: M Height: 1.83 m Weight: 127 kg Last Vital Signs Temp 38.3 C H 08/22/23 12:57 Pulse 76 08/22/23 12:57 Resp 18 08/22/23 12:57 BP 147/69 H 08/22/23 12:57 Pulse Ox 100 08/22/23 12:57 O2 Del Method Room Air 08/22/23 07:40 Allergies Allergy/AdvReac Type Severity Reaction Status Date / Time NSAIDS (Non-Steroidal AdvReac Mild UNABLE TO Verified 08/21/23 18:36 Anti-Inflamma TAKE DUE TO GASTRIC BYPASS SURGERY Home Medications Medication Instructions Recorded Confirmed Type tadalafil 5 mg tablet (Cialis) 5 mg PO DAILY #90 tabs 01/27/23 08/22/23 Rx lisinopril 20 mg tablet (Zestril) 20 mg PO DAILY #90 tabs 05/11/23 08/22/23 Rx atorvastatin 40 mg tablet 40 mg PO DAILY 07/02/23 08/22/23 History albuterol sulfate 90 mcg/actuation 2 inh inhalation Q6-8H PRN Wheezing 08/22/23 08/22/23 History aerosol inhaler amlodipine 10 mg tablet 10 mg PO DAILY 08/22/23 08/22/23 History fluoxetine 40 mg capsule 40 mg PO DAILY 08/22/23 08/22/23 History fluticasone propionate 50 1 spray intranasal Q6-8H PRN 08/22/23 08/22/23 History mcg/actuation nasal Allergy Symptoms spray,suspension omeprazole 20 mg capsule,delayed 20 mg PO DAILY 08/22/23 08/22/23 History release Laboratory Tests 08/21/23 08/21/23 08/22/23 19:49 20:34 05:31 WBC 13.6 H K/mm3 14.6 H K/mm3 (4.5-10.0) (4.5-10.0) RBC 4.50 L M/mm3 4.11 L M/mm3 (4.6-6.20) (4.6-6.20) Hgb 13.5 L g/dL 12.2 L g/dL (14.0-18.0) (14.0-18.0) Hct 41.7 L % 39.0 L % (42.0-52.0) (42.0-52.0) MCV 92.7 fl 94.9 fl (80-100) (80-100) MCH 30.0 pg 29.7 pg (26-34) (26-34) MCHC 32.4 g/dl 31.3 L g/dl (32-36) (32-36) RDW 13.0 % 13.2 % (11.5-14.5) (11.5-14.5) Plt Count 194 k/mm3 183 k/mm3 (150-375) (150-375) MPV 11.4 H fl 11.7 H fl (7.4-10.4) (7.4-10.4) Immature Gran % (Auto) 0.3 % 0.3 % (0-0.5) (0-0.5) Neut % (Auto) 75.6 H % 75.0 H % (45.5-73.1) (45.5-73.1) Lymph % (Auto) 16.1 L % 14.0 L % (18.3-44.2) (18.3-44.2) Parke % (Auto) 7.4 % 9.9 H % (2.6-8.5) (2.6-8.5) Eos % (Auto) 0.4 % 0.5 % (0-4.4) (0-4.4) Baso % (Auto) 0.2 % 0.3 % (0.2-1.2) (0.2-1.2) Lymph # (Auto) 2.19 K/mm3 2.04 K/mm3 (0.9-3.2) (0.9-3.2) Parke # (Auto) 1.0 H K/mm3 1.5 H K/mm3 (0.1-0.6) (0.1-0.6) Eos # (Auto) 0.1 K/mm3 0.1 K/mm3 (0-0.3) (0-0.3) Baso # (Auto) 0.0 K/mm3 0.0 K/mm3 (0.0-0.1) (0.0-0.1) Abs Immat Gran (auto) 0.04 H K/mm3 0.05 H K/mm3 (0.00-0.031) (0.00-0.031) Absolute Neuts (auto) 10.3 H K/mm3 11.0 H K/mm3 (1.3-6.7) (1.3-6.7) Absolute Nucleated RBC 0.000 K/mm3 0.000 K/mm3 (0.0-0.012) (0.0-0.012) Nucleated RBC % 0.0 % 0.0 % (0.0-0.2) (0.0-0.2) Sodium 134 L mmol/L 132 L mmol/L (137-145) (137-145) Potassium 4.2 mmol/L 4.0 mmol/L (3.4-5.0) (3.4-5.0) Chloride 100 mmol/L 102 mmol/L (98-107) (98-107) Carbon Dioxide 23 mmol/L 22 mmol/L (22-30) (22-30) Anion Gap 11 mmol/L 8 mmol/L (4-12) (4-12) BUN 16 mg/dL 13 mg/dL (9-20) (9-20) Creatinine 0.70 mg/dL 0.70 mg/dL (0.7-1.3) (0.7-1.3) Estim Creat Clear Calc 138 ml/min 138 ml/min Estimated GFR > 60 > 60 (59 - ) (59 - ) Glucose 106 mg/dL 109 mg/dL (65-110) (65-110) Calcium 9.5 mg/dL 8.6 mg/dL (8.4-10.2) (8.4-10.2) Total Bilirubin 1.0 mg/dL 1.0 mg/dL (0.2-1.3) (0.2-1.3) AST 27 U/L 25 U/L (17-59) (17-59) ALT 20 U/L 16 U/L (6-50) (6-50
[2023-08-22] MEDS: BUPIVACAINE/EPINEPHRINE 0.5% 50 ML VIAL 10 ML INFILTRATE (14:13)
[2023-08-22 14:27] LABS: Glucose Point of Care 134 mg/dl (65-105)
--- NOTE | 2023-08-22 14:28 | W.PM.PROC2 ---
Procedure Note - Detailed Date of Procedure 08/22/23 Pre-op Diagnosis Left Perineal Abscess Post-op Diagnosis Same Procedure Performed complex incision and drainage left perineal abscess measuring 10 x 5 cm Surgeon Brinda Montgomery MD Anesthesia General and Local Indications 57-year-old male presenting to the emergency department with a large left perineal abscess. Reports abscess has been worsening over the last 4 days. Findings 10 x 5 cm left perineal abscess with extension into the scrotum Description of Procedure The patient was taken the operating room placed in the modified lithotomy position. After adequate induction general anesthesia, the patient was prepped and draped in the sterile fashion. A time-out was then done to verify the patient's identity, as well as the procedure being performed. I began by localizing the area in and around the left perineal abscess. This was noted to extend into the left scrotum. I then made a incision over the most fluctuant area of this abscess using a 15 blade scalpel. Upon getting into the abscess cavity, a large amount of purulent drainage was noted. Sterile cultures were obtained at this time. I then used a hemostat to bluntly dissect around this cavity which was noted to be contained within the subcutaneous tissue. The measurements of the cavity were 10 x 5 cm. I then copiously irrigated the cavity. I then packed the cavity with half-inch iodoform to keep the cavity open and draining. Sterile dressing was then placed. The patient tolerated the procedure well and was extubated postoperatively. He will be sent to the recovery room in stable condition. Estimated Blood Loss 10 Drains No Packing Yes Pathology None sent Complications No immediate complications Condition Stable Disposition PACU [facility] Billing Surgery - Charge Forward: Surgery Billing
--- NOTE | 2023-08-22 14:38 | SUR.PHASEI ---
Simple mask removed at 1434
[2023-08-22] MEDS: HYDROcodone/acetaminophen (*CRX) 5-325 MG TABLET 1 TAB PO ×2 (17:22→20:44)
[2023-08-23] MEDS: HYDROcodone/acetaminophen (*CRX) 5-325 MG TABLET 1 TAB PO ×3 (00:06→12:42)
[2023-08-23] MEDS: SODIUM CHLORIDE 0.9% IV 1,000 ML 125 ML IV CONT (00:08)
[2023-08-23 05:11] VITALS: BP 100/53; PULSE 69; RESP 12; TEMP 36.7; O2SAT 98
[2023-08-23 07:32] LABS: Glucose Point of Care 131 mg/dl (65-105)
[2023-08-23] MEDS: PANTOPRAZOLE 40 MG TABLET PO (08:13)
[2023-08-23] MEDS: CEFEPIME 2 GM/NS 50 ML 2 GM/50 ML BAG IVPB (08:13)
[2023-08-23] MEDS: ATORVASTATIN 40 MG TABLET PO (08:13)
[2023-08-23] MEDS: FLUoxetine HCL 20 MG CAPSULE 40 MG PO (08:13)
[2023-08-23 08:14] LABS: Basophils Percent Auto 0.2 % (0.2-1.2); Eosinophils Absolute Auto 0.1 K/mm3 (0-0.3); Eosinophils Percent Auto 0.4 % (0-4.4); Hematocrit 34.4 % (42.0-52.0); Hemoglobin 11.2 g/dL (14.0-18.0); Immature Granulocyte Absolute 0.19 K/mm3 (0.00-0.031); Immature Granulocyte Percent A 1.3 % (0-0.5); Lymphocytes Absolute Auto 1.22 K/mm3 (0.9-3.2); Lymphocytes Percent Auto 8.6 % (18.3-44.2); Mean Corpuscular HGB Conc 32.6 g/dl (32-36); Mean Corpuscular Hemoglobin 30.4 pg (26-34); Mean Corpuscular Volume 93.5 fl (80-100); Mean Platelet Volume 11.1 fl (7.4-10.4); Monocytes Absolute Auto 1.3 K/mm3 (0.1-0.6); Neutrophils Absolute Auto 11.5 K/mm3 (1.3-6.7); Neutrophils Percent Auto 80.5 % (45.5-73.1); Platelet Count Result 141 k/mm3 (150-375); Red Blood Count 3.68 M/mm3 (4.6-6.20); Red Cell Distribution Width 13.1 % (11.5-14.5); White Blood Count 14.2 K/mm3 (4.5-10.0)
[2023-08-23] MEDS: lisinopriL 20 MG TABLET PO (08:14)
--- NOTE | 2023-08-23 08:23 | WPDANESPN ---
Anes - Prog Note Post-Op Date/Time: 08/23/23 08:23 Cardiovascular status: normal Respiratory status: normal Airway patency: baseline Mental status: baseline Post-Op hydration status: normal Vital Signs: Last Vital Signs Temp 36.7 C 08/23/23 05:11 Pulse 69 08/23/23 05:11 Resp 12 08/23/23 05:11 BP 100/53 L 08/23/23 05:11 Pulse Ox 98 08/23/23 05:11 O2 Del Method Room Air 08/22/23 20:00 O2 Flow Rate 10 08/22/23 14:25 Pain Score (VAS): 04/26 I/O: Intake & Output 08/22/23 08/23/23 08/23/23 23:59 07:59 15:59 Intake Total 790 750 Balance 790 750 Laboratory Tests 08/23/23 08:03 08/22/23 08/22/23 08/23/23 05:31 14:24 07:29 WBC 14.6 H RBC 4.11 L Hgb 12.2 L Hct 39.0 L MCV 94.9 MCH 29.7 MCHC 31.3 L RDW 13.2 Plt Count 183 MPV 11.7 H Immature Gran % (Auto) 0.3 Neut % (Auto) 75.0 H Lymph % (Auto) 14.0 L Hill % (Auto) 9.9 H Eos % (Auto) 0.5 Baso % (Auto) 0.3 Lymph # (Auto) 2.04 Hill # (Auto) 1.5 H Eos # (Auto) 0.1 Baso # (Auto) 0.0 Abs Immat Gran (auto) 0.05 H Absolute Neuts (auto) 11.0 H Absolute Nucleated RBC 0.000 Nucleated RBC % 0.0 Sodium 132 L Potassium 4.0 Chloride 102 Carbon Dioxide 22 Anion Gap 8 BUN 13 Creatinine 0.70 Estim Creat Clear Calc 138 Estimated GFR > 60 Glucose 109 POC Capillary Glucose 134 H 131 H Calcium 8.6 Total Bilirubin 1.0 AST 25 ALT 16 Alkaline Phosphatase 82 Total Protein 7.0 Albumin 3.7 Vancomycin Trough 08/23/23 08:03 WBC 14.2 H RBC 3.68 L Hgb 11.2 L Hct 34.4 L MCV 93.5 MCH 30.4 MCHC 32.6 RDW 13.1 Plt Count 141 L MPV 11.1 H Immature Gran % (Auto) 1.3 H Neut % (Auto) 80.5 H Lymph % (Auto) 8.6 L Hill % (Auto) 9.0 H Eos % (Auto) 0.4 Baso % (Auto) 0.2 Lymph # (Auto) 1.22 Hill # (Auto) 1.3 H Eos # (Auto) 0.1 Baso # (Auto) 0.0 Abs Immat Gran (auto) 0.19 H Absolute Neuts (auto) 11.5 H Absolute Nucleated RBC 0.000 Nucleated RBC % 0.0 Sodium Pending Potassium Pending Chloride Pending Carbon Dioxide Pending Anion Gap Pending BUN Pending Creatinine Pending Estim Creat Clear Calc Pending Estimated GFR Pending Glucose Pending POC Capillary Glucose Calcium Pending Total Bilirubin Pending AST Pending ALT Pending Alkaline Phosphatase Pending Total Protein Pending Albumin Pending Vancomycin Trough Pending Post-procedural complaints: none Patient Feedback: Patient satisfied with anesthetic care.
[2023-08-23 08:25] LABS: Alanine Aminotransferase 15 U/L (6-50); Albumin Level 3.2 g/dL (3.5-5.1); Alkaline Phosphatase 70 U/L (38-126); Anion Gap 4 mmol/L (4-12); Aspartate Amino Transferase 23 U/L (17-59); Bilirubin,Total 0.7 mg/dL (0.2-1.3); Blood Urea Nitrogen 15 mg/dL (9-20); Carbon Dioxide 24 mmol/L (22-30); Chloride 103 mmol/L (98-107); Estimated CRCL calculation 122 ml/min; Estimated Glomerular Filt Rate > 60; Glucose 126 mg/dL (65-110); Potassium 3.7 mmol/L (3.4-5.0); Sodium 131 mmol/L (137-145)
[2023-08-23 08:52] LABS: Vancomycin Trough 8.1 ug/mL (10.0-20.0)
--- NOTE | 2023-08-23 09:53 | PM.PNGS ---
Progress Note: A&P Assessment and Plan (1) Abscess of deep perineal space: Code(s): N34.0 - Urethral abscess Status: Acute Assessment and Plan: much improved s/p drainage, ok to dc home c local wound care and po abx, f/u 2 wks Subjective Subjective Date/Time Seen: 08/23/23 09:53 Interval history: feels much better, pain significantly improved Review of Systems Review of Systems: All systems reviewed & are unremarkable except as noted in HPI and below Exam Const: General: cooperative, comfortable and no acute distress Resp: Auscultation: clear to auscultation bilaterally Cardio: Rate: regular rate Rhythm: regular rhythm GI: Inspection: normal to inspection and non-distended GI Palp: No abdominal tenderness and Yes Soft to palpation Skin: Other: L perineal wound - unpacked, significantly improved induration, cellulitis Objective Data Vital Signs Vital Signs: Vital Signs - 24 hr 08/22/23 10:11 08/22/23 12:57 08/22/23 14:14 Temperature 37.7 C H 38.3 C H 38.3 C H Pulse Rate 76 88 Respiratory Rate 18 20 Blood Pressure 147/69 H 137/69 Pulse Oximetry 100 99 Oxygen Delivery Simple Face Mask Oxygen Flow Rate 10 08/22/23 14:20 08/22/23 14:25 08/22/23 14:40 Temperature Pulse Rate 80 80 Respiratory Rate 22 H 22 H Blood Pressure 147/92 H 148/82 H Pulse Oximetry 100 100 95 Oxygen Delivery Simple Face Mask Simple Face Mask Room Air Oxygen Flow Rate 10 10 08/22/23 14:55 08/22/23 15:08 08/22/23 16:07 Temperature 37.3 C 37.7 C H Pulse Rate 82 84 Respiratory Rate 20 22 H Blood Pressure 125/86 130/68 Pulse Oximetry 94 94 Oxygen Delivery Room Air Room Air Oxygen Flow Rate 08/22/23 15:45 08/22/23 16:00 08/22/23 16:30 Temperature 37.2 C 37.7 C H 37.4 C Pulse Rate 82 87 84 Respiratory Rate 16 16 18 Blood Pressure 135/68 135/64 129/69 Pulse Oximetry 98 98 96 Oxygen Delivery Oxygen Flow Rate 08/22/23 17:30 08/22/23 21:15 08/22/23 20:00 Temperature 37.1 C 37.3 C Pulse Rate 80 79 79 Respiratory Rate 20 12 12 Blood Pressure 111/60 138/68 Pulse Oximetry 97 100 100 Oxygen Delivery Room Air Oxygen Flow Rate 08/23/23 05:11 Temperature 36.7 C Pulse Rate 69 Respiratory Rate 12 Blood Pressure 100/53 L Pulse Oximetry 98 Oxygen Delivery Oxygen Flow Rate Intake/Output Intake/Output: Intake & Output 08/20/23 08/21/23 08/22/23 08/23/23 23:59 23:59 23:59 23:59 Intake Total 1550 2390 750 Balance 1550 2390 750 Meds/Results Medications: Active Medications Generic Name Dose Route Start Last Admin Trade Name Freq PRN Reason Stop Dose Admin Acetaminophen 650 mg 08/22/23 09:25 08/22/23 16:07 Acetaminophen 325 Mg Tablet PO 650 mg Q4H PRN Administration Pain 1-3 and fever Hydrocodone Bitart/Acetaminophen 1 tab 08/22/23 15:30 08/23/23 08:15 Hydrocodone/Acetaminophen (*Crx) 5-325 Mg Tablet PO 1 tab Q4H PRN Administration Pain Rated 4-6 Albuterol 2 puff 08/22/23 15:30 Albuterol Sulfate (*Sp) Aerosol 1 Puff INHALATION Q6HRT PRN Wheezing Amlodipine Besylate 10 mg 08/23/23 21:00 Amlodipine Besylate 5 Mg Tablet PO QHS SIMA Atorvastatin Calcium 40 mg 08/23/23 09:00 08/23/23 08:13 Atorvastatin 40 Mg Tablet PO 40 mg DAILY SIMA Administration Fluoxetine HCl 40 mg 08/23/23 09:00 08/23/23 08:13 Fluoxetine Hcl 20 Mg Capsule PO 40 mg DAILY SIMA Administration Fluticasone Propionate 1 spray 08/22/23 15:30 Fluticasone Propionate 0.05% Na Spr 16 Gm Btl (*Bkc) NASAL Q6H PRN Allergy Symptoms Hydromorphone HCl 0.5 mg 08/21/23 23:48 08/22/23 12:27 Hydromorphone Hcl Inj (*Crx) 1 Mg/Ml Syr IV PUSH 0.5 mg Q4H PRN Administration Pain Rated 7-10 Cefepime HCl 2 gm in 50 mls @ 100 mls/hr 08/22/23 08:00 08/23/23 08:13 Maxipime 2 Gm/Ns 50 Ml IVPB 100 mls/hr Q12H SIMA Administration Sodium Chloride 1,000 mls @ 125 mls/hr
--- NOTE | 2023-08-23 10:17 | PM.DS ---
DS: Admitting Diagnosis Discharge Date 08/23/2023 Admitting Diagnosis Left perineal abscess DS: Discharge Diagnosis Discharge Diagnosis (1) Abscess of deep perineal space: Code(s): N34.0 - Urethral abscess Status: Acute (2) GERD (gastroesophageal reflux disease): Code(s): K21.9 - Gastro-esophageal reflux disease without esophagitis Status: Acute (3) Benign essential HTN: Code(s): I10 - Essential (primary) hypertension Status: Acute DS: Summary Hospital Course Reason for hospitalization: Left perineal abscess Hospital Course: 57-year-old male with past medical history of hypertension, obesity (s/p Haylee en Y gastrojejunostomy), diabetes, and alcohol abuse (sober since 09/2020) presented to the hospital for perianal abscess. Patient states that the abscess has been present for approximately 4 days. He called his PCP Dr. Carpenter and she told patient to go to urgent care, who prescribed him two antibiotics. Patient is unsure what antibiotics they were. He took one day of the antibiotics and the abscess increased in size and became more painful. upon arrival he reported no drainage denied any fever chills nausea vomiting, patient also reported a history of abscess to his left leg a year ago that had to be incised and drained. , patient taken to the OR for complex incision and drainage of left perineal abscess measuring 10 x 5 cm The abscess is noted to extend into the left scrotum, large amount of purulent drainage was noted sterile cultures were obtained, wound was packed with half-inch iodoform sternal dressing in place patient tolerated procedure well. 08/23/23 pt seen this a.m he denies any overnight events, he denies any swelling or drainage to surgical site. Pt seen by surgeon this am who has recommended discharge to home. Pt is reporting he is ready for discharge and does not want to stay another night in the hospital. Pt labs were reviewed this am, his WBC is slightly elevated at 14.2, Na+ is 131, recheck labs prior to pt being discharged. Status at Discharge Functional status at discharge: independent ambulation Overall status at discharge: patient is back to baseline Time Spent with Patient Time attestation: Total time spent providing and/or coordinating discharge services: Time spent: Less than 30 minutes Exam Narrative: General: male in no acute respiratory distress who is nontoxic appearing, sitting on the edge of the bed with family by the bedside HEENT: Normocephalic. Atraumatic. Pupils equal round reactive to light. Extraocular movement intact. Sclera clear and anicteric. No facial asymmetry. Chest: Lungs are clear to auscultation bilaterally. No wheezes or crackles. CV: Heart was regular rate and rhythm. S1/S2. No murmurs, gallops, or rubs. Abd: Abdomen was soft. Nontender. Nondistended. Positive bowel sounds. No organomegaly or masses. Ext: No clubbing, cyanosis, or edema. 2+ DP pulses bilaterally. Neuro: Patient is alert and oriented x4. Cranial nerves 2-12 are intact. Speech is clear. Psych: Normal mood and affect. Patient is pleasant and cooperative. Skin: Warm and dry. Perineal wound with packing in place, no noted discharge, no tenderness. No rashes noted. DS: Data Data Completed and Pending Labs on day of discharge: Labs from last 24 hours 08/23/23 08/23/23 08/22/23 08:03 07:29 14:24 WBC 14.2 H RBC 3.68 L Hgb 11.2 L Hct 34.4 L MCV 93.5 MCH 30.4 MCHC 32.6 RDW 13.1 Plt Count 141 L MPV 11.1 H Immature Gran % (Auto) 1.3 H Neut % (Auto) 80.5 H Lymph % (Auto) 8.6 L [place] % (Auto) 9.0 H Eos % (Auto) 0.4 Baso % (Auto) 0.2 Lymph # (Auto) 1.22 [place] # (Auto) 1.3 H Eos # (Auto) 0.1 Baso # (Auto) 0.0 Abs Immat Gran (auto) 0.19 H Absolute Neuts (auto) 11.5 H Absolute Nucleated RBC 0.000 Nucleated RBC % 0.0 Sodium 131 L Potassium 3.7 Chloride 103 Carbon Dioxide 24 Anion Gap 4
[2023-08-23] MEDS: VANCOMYCIN 2,000 MG/NS 500 ML 2,000 MG/500 ML BAG 250 MG IVPB (10:43)
[2023-08-23 13:10] LABS: Basophils Percent Auto 0.3 % (0.2-1.2); Eosinophils Absolute Auto 0.1 K/mm3 (0-0.3); Eosinophils Percent Auto 0.5 % (0-4.4); Hematocrit 34.1 % (42.0-52.0); Immature Granulocyte Absolute 0.04 K/mm3 (0.00-0.031); Immature Granulocyte Percent A 0.3 % (0-0.5); Immature Platelet Fraction Pct 6.2 % (0.9-11.2); Lymphocytes Absolute Auto 1.39 K/mm3 (0.9-3.2); Mean Corpuscular HGB Conc 32.3 g/dl (32-36); Mean Corpuscular Hemoglobin 30.2 pg (26-34); Mean Corpuscular Volume 93.7 fl (80-100); Monocytes Absolute Auto 1.1 K/mm3 (0.1-0.6); Monocytes Percent Auto 9.7 % (2.6-8.5); Neutrophils Absolute Auto 8.9 K/mm3 (1.3-6.7); Neutrophils Percent Auto 77.2 % (45.5-73.1); Platelet Count Result 125 k/mm3 (150-375); Red Blood Count 3.64 M/mm3 (4.6-6.20); Red Cell Distribution Width 13.2 % (11.5-14.5); White Blood Count 11.6 K/mm3 (4.5-10.0)
[2023-08-23 13:23] LABS: Anion Gap 5 mmol/L (4-12); Blood Urea Nitrogen 15 mg/dL (9-20); Calcium 7.8 mg/dL (8.4-10.2); Carbon Dioxide 23 mmol/L (22-30); Chloride 104 mmol/L (98-107); Estimated CRCL calculation 122 ml/min; Estimated Glomerular Filt Rate > 60; Glucose 162 mg/dL (65-110); Potassium 3.6 mmol/L (3.4-5.0); Sodium 132 mmol/L (137-145)
== END 2023-08-23 13:40 | disposition home or self-care (01) ==
LOC: ANHED 23:52 → ANH3MEDSUR 08-22 00:48
PROVIDERS: Nurse Practitioner; Admitting Provider Surgery; Emergency Provider Physician Assistant; PCP Family Medicine; Visit Provider Student in an Organized Health Care Education/Training Program
PROC: (CPT 46040; principal; 2023-08-22 15:00)
DX: L02.215 Cutaneous abscess of perineum (principal); I10 Essential (primary) hypertension; E11.40 Type 2 diabetes mellitus with diabetic neuropathy, unspecified; F33.1 Major depressive disorder, recurrent, moderate; G47.33 Obstructive sleep apnea (adult) (pediatric); K21.9 Gastro-esophageal reflux disease without esophagitis; Z98.84 Bariatric surgery status; F17.210 Nicotine dependence, cigarettes, uncomplicated; F12.90 Cannabis use, unspecified, uncomplicated; Z79.51 Long term (current) use of inhaled steroids
CPT/HCPCS: 10061; 36415; 74177; 80048; 80053; 80202; 81001; 82565; 82948; 85025; 85055; 86140; 87070; 87075; 87076; 87185; 87205; 93005; 96365; 96366; 96367; 96375; 99285; A9270; G0378; J0692; J1170; J2250; J2270; J2405; J3010; J3370; J7030; J7120; Q9967

== ENCOUNTER 2023-09-23 06:56 | Outpatient (CLI) | payer BC, OTHER, SELFPAY ==
[2023-09-23 07:19] LABS: Basophils Percent Auto 0.4 % (0.2-1.2); Eosinophils Absolute Auto 0.3 K/mm3 (0-0.3); Eosinophils Percent Auto 4.5 % (0-4.4); Hematocrit 40.8 % (42.0-52.0); Immature Granulocyte Absolute 0.01 K/mm3 (0.00-0.031); Immature Granulocyte Percent A 0.1 % (0-0.5); Lymphocytes Absolute Auto 2.23 K/mm3 (0.9-3.2); Lymphocytes Percent Auto 33.4 % (18.3-44.2); Mean Corpuscular HGB Conc 31.9 g/dl (32-36); Mean Corpuscular Hemoglobin 30.2 pg (26-34); Mean Corpuscular Volume 94.7 fl (80-100); Mean Platelet Volume 10.7 fl (7.4-10.4); Monocytes Absolute Auto 0.6 K/mm3 (0.1-0.6); Monocytes Percent Auto 8.8 % (2.6-8.5); Neutrophils Absolute Auto 3.5 K/mm3 (1.3-6.7); Neutrophils Percent Auto 52.8 % (45.5-73.1); Platelet Count Result 177 k/mm3 (150-375); Red Blood Count 4.31 M/mm3 (4.6-6.20); Red Cell Distribution Width 13.3 % (11.5-14.5); White Blood Count 6.7 K/mm3 (4.5-10.0)
[2023-09-23 07:28] LABS: Alanine Aminotransferase 32 U/L (6-50); Albumin Level 4.2 g/dL (3.5-5.1); Alkaline Phosphatase 76 U/L (38-126); Anion Gap 7 mmol/L (4-12); Aspartate Amino Transferase 33 U/L (17-59); Bilirubin,Total 0.6 mg/dL (0.2-1.3); Blood Urea Nitrogen 12 mg/dL (9-20); Calcium 8.8 mg/dL (8.4-10.2); Carbon Dioxide 26 mmol/L (22-30); Chloride 107 mmol/L (98-107); Estimated Glomerular Filt Rate > 60; Glucose 96 mg/dL (65-110); Potassium 4.2 mmol/L (3.4-5.0); Sodium 140 mmol/L (137-145)
== END 2023-09-23 06:57 | disposition home or self-care (01) ==
PROVIDERS: PCP Family Medicine; Visit Provider Family Medicine
DX: I10 Essential (primary) hypertension (principal)
CPT/HCPCS: 36415; 80053; 85025

== ENCOUNTER 2024-03-03 13:54 | Outpatient (CLI) | payer BC, OTHER, SELFPAY ==
--- NOTE | ~2024-03-03 | CT_ITS ---
EXAMINATION:CT lung screening DATE: 03/03/2024 14:05 INDICATION: Personal history of nicotine dependence. Current smoker with 30 pack year history. TECHNIQUE: Computed tomography (CT) of the chest was performed without intravenous contrast. Automate d exposure control and iterative reconstruction technique were employed. The dose-length product (DLP ) was 386.03 mGy-cm. COMPARISON: Chest CT 07/22/2014 FINDINGS: The lungs demonstrate mild atelectasis. There are multiple nodules in the lungs measuring u p to 3 mm. No pleural effusion. The heart size is normal. There are coronary artery calcifications. N o pericardial effusion. There is a small sliding hiatal hernia. There are surgical changes of the sto mach. There is mild thoracic spondylosis. There is a chronic compression fracture of T4. IMPRESSION: 1. Lung-RADS category 2: Benign appearance or behavior. Continue annual screening with noncontrast lo w-dose chest CT in 12 months. Reviewed, dictated and finalized at location A. PATROL IMPRESSION: 1. Lung-RADS category 2: Benign appearance or behavior. Continue annual screeni ng with noncontrast low-dose chest CT in 12 months.
== END 2024-03-03 13:55 | disposition home or self-care (01) ==
LOC: ANHIMG 13:55
PROVIDERS: PCP Family Medicine; Visit Provider Family Medicine
DX: Z12.2 Encounter for screening for malignant neoplasm of respiratory organs (principal); Z87.891 Personal history of nicotine dependence
CPT/HCPCS: 71271

== ENCOUNTER 2024-05-10 11:25 | Outpatient (CLI) | payer BC, OTHER, SELFPAY ==
--- OUTSIDE RECORDS SUMMARY | 2024-05-10 13:21 | XMS_ITS | Clinical Summary ---
Author Organization [facility] Address [address] [place] [address] Phone Care Team Providers Care Log Chipper Operator Name Role Phone Pauline Melgar MD Primary Care Provider [phone]- [phone] Allergies Active Allergy Reactions Criticality Noted Date Comments Ibuprofen Other (See Comments) 01/02/2022 Can not take due to gastric bypass Nsaids (Non-Steroidal Anti-Inflammatory Drug) Other (See Comments) 01/02/2022 Can not take due to gastric bypass Medications amLODIPine (NORVASC) 10 mg Oral tablet Take 10 mg by mouth daily. Active lisinopriL (PRINIVIL) 20 mg tablet Take 20 mg by mouth daily. 2 Active omeprazole (PriLOSEC) 20 mg Capsule, Delayed Release(E.C.) Take 20 mg by mouth daily. 2 Active tadalafil (CIALIS) 5 mg tablet Take 5 mg by mouth 1 time daily as needed. 2 Active FLUoxetine (PROzac) 40 mg capsule Take 40 mg by mouth daily. Active calcium as carbonate (CALTRATE) 1,500 mg (600 mg elemental) Tablet Take by mouth 3 times daily. Active multivit-min/iron /folic acid/K (BARIATRIC MULTIVITAMINS ORAL) Take 1 Tablet by mouth daily. Active albuterol sulfate HFA 90 mcg/actuation aerosol inhaler 3 Active azelastine (ASTELIN) 137 mcg/actuation nasal spray Administer 1 Pecan Gap in each nostril daily. 3 Active fluticasone propionate (FLONASE) 50 mcg/spray [place] Gap, Suspension nasal inhaler 3 Active ondansetron (ZOFRAN ODT) 4 mg Tablet, Rapid Dissolve Take 4 mg by mouth. 3 Active aspirin (ECOTRIN EC) 81 mg Tablet, Delayed Release (E.C.) Take 1 Tablet (81 mg) by mouth daily. 3 Active atorvastatin (Lipitor) 10 mg tablet Take 1 Tablet (10 mg) by mouth daily. 100 Tablet 3 3 Active Active Problems Patient Care Coordination No te Formatting of this note migh t be different from the original. Vascular Care - Dr. Glen Tony MD, FAC, [facility] - [address] [facility] Will Graves D.P.M. FACFAS [facility] Problem Noted Date Diagnosed Date PVD (peripheral vascular disease) 01/02/2023 Tobacco abuse 01/02/2023 Benign essential HTN 01/02/2022 Immunizations Immunization Administration Dates Next Due (ADACEL/BOOSTRIX)(10 YR UP) TDAP VACCINE, 0.5ML, IM 02/21/2010 Social History Tobacco Use Types Packs/Day Years Used Date Smoking Tobacco: Former Cigarettes 0.5 30 1 - 12/24/2022 Smokeless Tobacco: Never Tobacco Cessation:Counseling Given: Not Answered Comments:On/off smoker Sex and Gender Information Value Date Recorded Sex Assigned at Not on file Legal Sex Male 5:58 AM [employer] Gender Identity Not on file Sexual Orientation Not on file Last Filed Vital Signs Vital Sign Reading Time Taken Comments Blood Pressure 124/66 01/02/2023 7:59 AM CDT Pulse 57 01/02/2023 7:59 AM CDT Temperature 36.9 C (98.4 F) 02/21/2010 1:30 PM [employer] Respiratory Rate 18 02/21/2010 1:30 PM [employer] Oxygen Saturation 98% 01/02/2023 7:59 AM CDT Inhaled Oxygen Concentration - - Weight 127 kg (280 lb) 01/02/2023 7:59 AM CDT Height 182.9 cm (6') 01/02/2023 7:59 AM CDT Body Mass Index 37.97 01/02/2023 7:59 AM CDT Plan of Treatment Health Maintenance Due Date Last Done Comments HEPATITIS B VACCINES (1 of 3 - 19+ 3-dose series) 10/16 COLORECTAL SCREENING 2010 Colorectal Cancer Screening 2010 FIT-DNA Q 3 years 2010 FIT/FOBT Q 1 year 2010 Flex Sig/CT Colonography Q 5 years 2010 ZOSTER VACCINE (1 of 2) 11/13/2015 DTAP/TDAP/TD VACCINES (2 - Td or Tdap) 02/22/2020 INFLUENZA VACCINE (#1) 2023 Insurance [employer] [facility] BLUE ACCESS/TRUE BLUE PPO Care Teams Log Chipper Operator Relationship Specialty Start Date End Date Pauline Melgar MD PCP - General Family Practice 01/01/22
--- OUTSIDE RECORDS SUMMARY | 2024-05-10 13:21 | XMS_ITS | Clinical Summary ---
Author Organization [facility] Address [address] [place] [address] Care Team Providers Care Poiser Name Role Phone Pauline Melgar MD Primary Care Provider + Source Comments [facility],non-owned Affiliates and Associated Physician Practices is amultiple site organization consisting of ambulatory clinics and hospital sitesin [place], [place], [place] and [place]. This disclosure is being madepursuant to the Care Everywhere program and may not contain all information available regarding this patient. Last updated 17.[facility] Allergies Active Allergy Reactions Criticality Noted Date Comments Ibuprofen Other 01/02/2022 Can not take due to gastric bypass Nsaids Dizziness 01/02/2022 Can not take due to gastric bypass Medications * Be aware that medications may not be up to date on this document. Alwaysverify current medications with the patient. Medication Sig Dispensed Refills Start Date End Date Status atorvastatin (LIPITOR) 10 MG tablet Take 1 (one) tablet by mouth at bedtime 0 12/01/2017 Active omeprazole (PRILOSEC) 20 MG capsule Take 1 (one) capsule by mouth once daily 30 capsule 5 11/03/2020 Active FLUoxetine (PROzac) 40 MG capsule 09/13/2022 Active ondansetron, disintegrating, (Zofran ODT) 4 MG tablet Take 1 (one) tablet by mouth once 11/23/2022 Active tadalafil (Cialis) 5 MG tablet Take 1 (one) tablet by mouth once daily as needed 11/13/2020 Active loratadine (Claritin) 10 MG tablet Take 1 (one) tablet by mouth once daily 30 tablet 3 12/19/2022 Active aspirin EC (Ecotrin) 81 MG tablet Take 1 (one) tablet by mouth once daily 01/02/2023 Active azelastine (Astelin) 0.1 % nasal spray Imler 1 (one) spray into the nose once daily 09/26/2022 Active fluticasone propionate (Flonase) 50 MCG/ACT nasal spray Imler 1 (one) spray into each nostril once daily 12/25/2022 Active ciprofloxacin-dexAME THasone (Ciprodex) 0.3-0.1 % otic suspension Instill 4 (four) drops into left ear 2 times daily for 5 days Shake well before using. 03/12/2023 Active albuterol HFA (Proventil; Ventolin; Proair) 108 (90 Base) MCG/ACT inhaler Inhale 2 (two) puffs by mouth as directed 04/14/2023 Active sulfamethoxazole-tri methoprim (Bactrim DS; Septra DS) 800-160 MG tablet Take 1 (one) tablet by mouth as directed 11/06/2023 Active tamsulosin (Flomax) 0.4 MG capsule Take 1 (one) capsule by mouth once daily 10/20/2023 Active tiZANidine (Zanaflex) 2 MG tablet Take 1 (one) tablet by mouth as needed for Muscle Spasms 11/04/2023 Active amLODIPine (Norvasc) 5 MG tablet Take 1 (one) tablet by mouth once daily 11/04/2023 Active lisinopril (Prinivil; Zestril) 10 MG tablet Take 1 (one) tablet by mouth once daily 01/22/2024 Active amoxicillin-clavulan ate (Augmentin) 875-125 MG tablet Take 1 (one) tablet by mouth 2 times daily with morning and evening meal 20 tablet 02/10/2024 Active Active Problems Problem Noted Date Diagnosed Date S/P FESS (functional endoscopic sinus surgery) 0 03/18/2023 S/P tympanoplasty 03/18/2023 PVD (peripheral vascular disease) 01/02/2023 03/11/2023 Tobacco abuse 01/02/2023 03/11/2023 Benign essential HTN 01/02/2022 03/11/2023 S/P gastric bypass 04/07/2018 Encounters Date Type Department Care Team Description 02/10/2024 8:00 AM CUFF SETTER Office Visit [facility] - ENT [address] [place] [address] George Traore MD S/P FESS (functional endoscopic sinus surgery) (Primary Dx); S/P tympanoplasty; Mixed conductive and sensorineural hearing loss of left ear, unspecified hearing status on contralateral side; Chronic pansinusitis; 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 ear; Perforation of left tympanic membrane; Left chronic serous otitis media 02/10/2024 Travel from Last 3 Months Immunizations Name Administration Dates Next Due INFLUENZA VACCINE, QUADR. (F LUZONE; FLULAVAL; FLUARIX; AFLURIA QUADRIVALENT; 6MO+), 0.5 ML (IIV4) 12/23/2018 TDAP (7yrs+) 02/21/2010 Social History Tobacco Use Types Packs/Day Years Used Date Smoking Tobacco: Every Day Cigarettes 0.5 6.4 Started: 01/01/2018 Smokeless Tobacco: Never Tobacco Cessation:Ready to Q uit: Not Asked; Counseling Given: Not Answered Alcohol Use Standard Drinks/Week Comments Not Currently 0 (1 standard drink = 0.6 oz pur e alcohol) occ Sex and Gender Information Value Date Recorded Sex Assigned at Not on file Gender Identity Not on file Sexual Orientation Not on file Last Filed Vital Signs Vital Sign Reading Time Taken Comments Blood Pressure 150/74 02/10/2024 7:51 AM CUFF SETTER Pulse 61 02/10/2024 7:51 AM CUFF SETTER Temperature 36.6 C (97.8 F) 03/12/2023 1:11 PM CUFF SETTER Respiratory Rate 14 03/12/2023 1:34 PM CUFF SETTER Oxygen Saturation 93% 03/12/2023 1:34 PM CUFF SETTER Inhaled Oxygen Concentration - - Weight 131.4 kg (289 lb 9.6 oz) 02/10/2024 7:51 AM CUFF SETTER Height 182.9 cm (6') 02/10/2024 7:51 AM CUFF SETTER Body Mass Index 39.28 02/10/2024 7:51 AM CUFF SETTER Plan of Treatment Upcoming Encounters Date Type Department Care Team (Late st Contact Info) Description 08/10/2024 8:00 AM CDT Testing Visit [facility] - E[facility] [facility], [place] [id number] Isela Last AuD [address] [place] [address] 08/10/2024 8:30 AM CDT Office Visit [facility] - [facility] [facility], [place] [phone] George Traore MD [facility] [place] [address] Health Maintenance Due Date Last Done Comments COLOGUARD (AGES 45-75) - COLON CA SCREENING 1965 COLON MONITORING 1965 COLONOSCOPY - COLON CA SCREENING 1965 CT COLONOGRAPHY - COLON CA SCREENING 1965 Colorectal Cancer Screening 1965 FIT - COLON CA SCREENING 1965 FLEX SIG - COLON CA SCREENING 1965 HIV SCREENING 1980 HEPATITIS C SCREENING 11/08/1983 HEPATITIS B VACCINE (1 of 3 - 19+ 3-dose series) 1984 PNEUMOCOCCAL VACCINE 50+ (1 of 2 - PCV) 1984 PNEUMOCOCCAL VACCINE (1 of 2 - PCV) 1984 ZOSTER VACCINE (1 of 2) 11/13/2015 DTAP/TDAP/TD VACCINES (2 - Td or Tdap) 02/22/2020 02/21/2010 SCREENING FOR DIABETES 12/03/2022 0, 01/26/2019, 04/08/2018, Additional history exists COVID-19 VACCINE (1 - 2023- season) 2023 INFLUENZA VACCINE (#1) 2023 12/23/2018 DEPRESSION SCREENING 03/17/2024 HIB VACCINE Aged Out No longer eligi ble based on patient's age to complete this topic HPV VACCINE Aged Out No longer eligi ble based on patient's age to complete this topic MENINGOCOCCAL (Group B) VACCINE Aged Out No longer eligible based on patient's age to complete this topic MENINGOCOCCAL VACCINE Aged Out No torrie hugo eligible based on patient's age to complete this topic Procedures Procedure Name Priority Date/Time Associated Diagnosis Comments TX NASAL ENDOSCOPY,DX Routine 02/10/2024 8:41 AM CUFF SETTER S/P FESS (functional endoscopic sinus surgery) S/P tympanoplasty Mixed conductive and sensorineural hearing loss of left ear, unspecified hearing status on contralateral side Chronic pansinusitis 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 ear Perforation of left tympanic membrane Left chronic serous otitis media COMPREHENSIVE METABOLIC PANEL Routine 05/17/2019 8:50 AM CUFF SETTER Bariatric surgery status Vitamin deficiency Mineral deficiency Vitamin D deficiency Intestinal malabsorption, unspecified type ([facility]) from Last 3 Months or Most Recently Relevant to Health Maintenance Results * TX NASAL ENDOSCOPY,DX (02/10/2024 8:41 AM CUFF SETTER) Narrative George Traore MD - 02/10/2024 8:41 AM CUFF SETTER George Traore MD 02/10/2024 8:44 AM Procedure Note Anesthesia: Lidocaine 2% and Kenan-Synephrine 1/2% Endoscopy Type: Rigid Nasal Endoscopy Procedure Details: Informed consent was obtained. The patient was placed in the sitting position. After topical anesthesia and decongestion, the 4 mm endoscope was passed. The nasal cavities (including the interior of the nasal cavity and the middle and superior meatus, the turbinates, and the sphenoethmoid recess) and the nasopharynx were all examined. The findings were recorded. The findings were normal unless otherwise noted: R frontal sinusitis. Otherwise well dissected healthy appearing sinuses. The patient tolerated procedure well. Complications: None For all procedures, attending was present and performed the eddy portions of the procedure. George Traore MD PROCEDURE/MINOR S URGICAL ORDERABLES * (ABNORMAL) COMPREHENSIVE METABOLIC PANEL (05/17/2019 8:50 AM CUFF SETTER) Glucose 94 65 - 99 mg/dL [facility] Comment: Fasting reference interval BUN 14 7 - 25 mg/dL [facility] Creatinine 0.85 0.70 - 1.33 mg/dL [facility] Comment: For patients >49 years of age, the reference limit for Creatinine is approximately 13% higher for people identified as -Brazilian. eGFR by MDRD 99 > OR = 60 mL/min/1 .73m2 [facility] eGFR by MDRD 115 > OR = 60 mL/min/1 .73m2 [facility] BUN/Creatinine Ratio NOT APPLICABLE 6 - 22 (calc) [facility] Sodium 138 135 - 146 mmol/L [facility] Potassium 4.4 3.5 - 5.3 mmol/L [facility] Chloride 105 98 - 110 mmol/L [facility] CO2 29 20 - 32 mmol/L [facility] Calcium 9.0 8.6 - 10.3 mg/dL [facility] Protein Total 6.0(L) 6.1 - 8.1 g/dL [facility] Albumin 3.9 3.6 - 5.1 g/dL [facility] Globulin Total 2.1 1.9 - 3.7 g/dL (calc) [facility] Albumin/Globulin Ratio 1.9 1.0 - 2.5 (calc) [facility] Bilirubin Total 0.4 0.2 - 1.2 mg/dL [facility] Alkaline Phosphatase 68 35 - 144 U/L [facility] AST 25 10 - 35 U/L [facility] ALT 20 9 - 46 U/L [facility] Comment: Test Performed at: [facility] [id number] [place] [id number] CITLALI WINCHESTER DO,MPH Blood BLOOD SPECIMEN / Unknown 05/17/2019 8:50 AM CUFF SETTER 05/17/2019 8:54 AM CUFF SETTER Juani Win DIRECTOR OF CLINICAL SERVICES-[facility] ORDERABLES [facility] [id number] [place] [address] from Last 3 Months or Most Recently Relevant to Health Maintenance Advance Directives * Full Code (Latest Code Status on File) Date Activated Date Inactivated Comments 04/07/2018 8:34 PM 04/08/2018 3:21 PM Care Teams Poiser Relationship Specialty Start Date End Date Pauline Melgar MD [address] [place] [address] PCP - General Family Medicine 12/03/22
--- OUTSIDE RECORDS SUMMARY | 2024-05-10 13:21 | XMS_ITS | Clinical Summary ---
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
--- OUTSIDE RECORDS SUMMARY | 2024-05-10 13:21 | XMS_ITS | Patient Health Summary ---
Author Organization [facility] Address [address] [place] [address] Care Team Providers Care Estimator Project Manager Name Role Phone Pauline Melgar MD Primary Care Provider + Note from [facility],non-owned Affiliates and Associated Physician Practices is amultiple site organization consisting of ambulatory clinics and hospital sitesin [place], [place], [place] and [place]. This disclosure is being madepursuant to the Care Everywhere program and may not contain all information available regarding this patient. Last updated 17.[facility] Allergies * Ibuprofen(Other) * Nsaids(Dizziness) Medications * Be aware that medications may not be up to date on this document. Alwaysverify current medications with the patient. * atorvastatin (LIPITOR) 10 MG tablet(Started 12/01/2017) Take 1 (one) tablet by mouth at bedtime * omeprazole (PRILOSEC) 20 MG capsule(Started 11/03/2020) Take 1 (one) capsule by mouth once daily 5 refills by 11/03/2021 * FLUoxetine (PROzac) 40 MG capsule(Started 09/13/2022) * ondansetron, disintegrating, (Zofran ODT) 4 MG tablet(Started 11/23/2022) Take 1 (one) tablet by mouth once * tadalafil (Cialis) 5 MG tablet(Started 11/13/2020) Take 1 (one) tablet by mouth once daily as needed * loratadine (Claritin) 10 MG tablet(Started 12/19/2022) Take 1 (one) tablet by mouth once daily 3 refills by 12/19/2023 * aspirin EC (Ecotrin) 81 MG tablet(Started 01/02/2023) Take 1 (one) tablet by mouth once daily * azelastine (Astelin) 0.1 % nasal spray(Started 09/26/2022) Clinton 1 (one) spray into the nose once daily * fluticasone propionate (Flonase) 50 MCG/ACT nasal spray(Started 12/25/2022) [place] 1 (one) spray into each nostril once daily * ciprofloxacin-dexAMETHasone (Ciprodex) 0.3-0.1 % otic suspension(Started 03/12/2023) Instill 4 (four) drops into left ear 2 times daily for 5 days Shake well before using. * albuterol HFA (Proventil; Ventolin; Proair) 108 (90 Base) MCG/ACT inhaler (Started 04/14/2023) Inhale 2 (two) puffs by mouth as directed * sulfamethoxazole-trimethoprim (Bactrim DS; Septra DS) 800-160 MG tablet (Started 11/06/2023) Take 1 (one) tablet by mouth as directed * tamsulosin (Flomax) 0.4 MG capsule(Started 10/20/2023) Take 1 (one) capsule by mouth once daily * tiZANidine (Zanaflex) 2 MG tablet(Started 11/04/2023) Take 1 (one) tablet by mouth as needed for Muscle Spasms * amLODIPine (Norvasc) 5 MG tablet(Started 11/04/2023) Take 1 (one) tablet by mouth once daily * lisinopril (Prinivil; Zestril) 10 MG tablet(Started 01/22/2024) Take 1 (one) tablet by mouth once daily * amoxicillin-clavulanate (Augmentin) 875-125 MG tablet(Started 02/10/2024) Take 1 (one) tablet by mouth 2 times daily with morning and evening meal Active Problems Problem Noted Date Diagnosed Date S/P FESS (functional endoscopic sinus surgery) 0 03/18/2023 S/P tympanoplasty 03/18/2023 PVD (peripheral vascular disease) 01/02/2023 03/11/2023 Tobacco abuse 01/02/2023 03/11/2023 Benign essential HTN 01/02/2022 03/11/2023 S/P gastric bypass 04/07/2018 Immunizations * INFLUENZA VACCINE, QUADR. (FLUZONE; FLULAVAL; FLUARIX; AFLURIA QUADRIVALENT; 6MO+), 0.5 ML (IIV4)(Given 12/23/2018) * TDAP (7yrs+)(Given 02/21/2010) Social History Tobacco Use Types Packs/Day Years [...] Comments Blood Pressure 150/74 02/10/2024 7:51 AM SCHOOL EXAMINER Pulse 61 02/10/2024 7:51 AM SCHOOL EXAMINER Temperature 36.6 C (97.8 F) 03/12/2023 1:11 PM SCHOOL EXAMINER Respiratory Rate 14 03/12/2023 1:34 PM SCHOOL EXAMINER Oxygen Saturation 93% 03/12/2023 1:34 PM SCHOOL EXAMINER Inhaled Oxygen Concentration - - Weight 131.4 kg (289 lb 9.6 oz) 02/10/2024 7:51 AM SCHOOL EXAMINER Height 182.9 cm (6') 02/10/2024 7:51 AM SCHOOL EXAMINER Body Mass Index 39.28 02/10/2024 7:51 AM SCHOOL EXAMINER Procedures * RI NASAL ENDOSCOPY,DX(Performed 02/10/2024) Performed for S/P FESS (functional endoscopic sinus surgery), S/P tympanoplasty, Mixed conductive and sensorineural hearing loss of left ear, unspecified hearing status on contralateral side, Chronicpansinusitis, 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 ear, Perforation of left tympanic membrane, Left chronic serous otitis media * RI NASAL ENDOSCOPY,DX(Performed 11/11/2023) Performed for S/P FESS (functional endoscopic sinus surgery), Mixed conductive and sensorineural hearing loss of left ear, unspecified hearing status on contralateral side, S/P tympanoplasty, Chronicpansinusitis, 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 ear * RI NASAL ENDOSCOPY,DX(Performed 08/07/2023) Performed for Mixed conductive and sensorineural hearing loss of left ear, unspecified hearing status on contralateral side, S/P FESS (functional endoscopic sinus surgery), Chronic pansinusitis, S/P tympanoplasty, 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 ear * AUDIOLOGY/TYMPANOMETRY ORDER(Performed 08/07/2023) * RI NASAL ENDOSCOPY,DX(Performed 04/29/2023) Performed for S/P FESS (functional endoscopic sinus surgery), Chronic pansinusitis, S/P tympanoplasty, 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 ear, Perforation of left tympanic membrane, Left chronic serous otitis media, Viral upper respiratory tract infection * RI ENDO NASAL SINUS BX POLYP DEBRID LIAM(Performed 04/03/2023) Performed for Chronic pansinusitis * RI ENDO NASAL SINUS BX POLYP DEBRID LIAM(Performed 03/18/2023) Performed for Chronic pansinusitis, 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 ear, Perforation of left tympanic membrane, Left chronic serous otitismedia, S/P FESS (functional endoscopic sinus surgery), S/P tympanoplasty * PATHOLOGY TISSUE(Performed 03/12/2023) Performed for Chronic pansinusitis, Mixed conductive and sensorineural hearing loss of left ear, unspecified hearing status on contralateral side, Perforated tympanic membrane, left * ENDOTRACHEAL TUBE NOTE(Performed 03/12/2023) * RI TYMPANOPLASTY(Performed 03/12/2023) Performed for Chronic pansinusitis, Mixed conductive and sensorineural hearing loss of left ear, unspecified hearing status on contralateral side, Perforated tympanic membrane, left * RI SCAN PROC CRANIAL EXTRA(Performed 03/12/2023) Performed for Chronic pansinusitis, Mixed conductive and sensorineural hearing loss of left ear, unspecified hearing status on contralateral side, Perforated tympanic membrane, left * RI REPAIR OF NASAL SEPTUM(Performed 03/12/2023) Performed for Chronic pansinusitis, Mixed conductive and sensorineural hearing loss of left ear, unspecified hearing status on contralateral side, Perforated tympanic membrane, left * RI EAR MICROSCOPY EXAMINATION(Performed 01/16/2023) Performed for 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 ear, Perforation of left tympanic membrane, Left chronic serous otitis media * CT SINUS WO CONTRAST(Performed 01/16/2023) Performed for 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 ear, Perforation of left tympanic membrane * CT TEMPORAL BONES WO CONTRAST(Performed 12/17/2022) Performed for Perforation of left tympanic membrane * RI EAR MICROSCOPY EXAMINATION(Performed 12/03/2022) Performed for Perforation of left tympanic membrane * AUDIOLOGY/TYMPANOMETRY ORDER(Performed 12/03/2022) * LAB(Performed 11/21/2020) * PREALBUMIN(Performed 05/17/2019) Performed for Bariatric surgery status, Vitamin deficiency, Mineral deficiency, Vitamin D deficiency, Intestinal malabsorption, unspecified type (HCC) * VITAMIN K1(Performed 05/17/2019) Performed for Bariatric surgery status, Vitamin deficiency, Mineral deficiency, Vitamin D deficiency, Intestinal malabsorption, unspecified type (HCC) * SELENIUM(Performed 05/17/2019) Performed for Bariatric surgery status, Vitamin deficiency, Mineral deficiency, Vitamin D deficiency, Intestinal malabsorption, unspecified type (HCC) * ZINC BLOOD(Performed 05/17/2019) Performed for Bariatric surgery status, Vitamin deficiency, Mineral deficiency, Vitamin D deficiency, Intestinal malabsorption, unspecified type (HCC) * VITAMIN E(Performed 05/17/2019) Performed for Bariatric surgery status, Vitamin deficiency, Mineral deficiency, Vitamin D deficiency, Intestinal malabsorption, unspecified type (HCC) * VITAMIN D 25-HYDROXY(Performed 05/17/2019) Performed for Bariatric surgery status, Vitamin deficiency, Mineral deficiency, Vitamin D deficiency, Intestinal malabsorption, unspecified type (HCC) * VITAMIN B1(Performed 05/17/2019) Performed for Bariatric surgery status, Vitamin deficiency, Mineral deficiency, Vitamin D deficiency, Intestinal malabsorption, unspecified type (HCC) * VITAMIN B12(Performed 05/17/2019) Performed for Bariatric surgery status, Vitamin deficiency, Mineral deficiency, Vitamin D deficiency, Intestinal malabsorption, unspecified type (HCC) * VITAMIN A(Performed 05/17/2019) Performed for Bariatric surgery status, Vitamin deficiency, Mineral deficiency, Vitamin D deficiency, Intestinal malabsorption, unspecified type (HCC) * PTH INTACT(Performed 05/17/2019) Performed for Bariatric surgery status, Vitamin deficiency, Mineral deficiency, Vitamin D deficiency, Intestinal malabsorption, unspecified type (HCC) * MAGNESIUM BLOOD(Performed 05/17/2019) Performed for Bariatric surgery status, Vitamin deficiency, Mineral deficiency, Vitamin D deficiency, Intestinal malabsorption, unspecified type (HCC) * IRON BLOOD(Performed 05/17/2019) Performed for Bariatric surgery status, Vitamin deficiency, Mineral deficiency, Vitamin D deficiency, Intestinal malabsorption, unspecified type (HCC) * FOLATE RBC(Performed 05/17/2019) Performed for Bariatric surgery status, Vitamin deficiency, Mineral deficiency, Vitamin D deficiency, Intestinal malabsorption, unspecified type (HCC) * FERRITIN(Performed 05/17/2019) Performed for Bariatric surgery status, Vitamin deficiency, Mineral deficiency, Vitamin D deficiency, Intestinal malabsorption, unspecified type (HCC) * COPPER BLOOD(Performed 05/17/2019) Performed for Bariatric surgery status, Vitamin deficiency, Mineral deficiency, Vitamin D deficiency, Intestinal malabsorption, unspecified type (HCC) * COMPREHENSIVE METABOLIC PANEL(Performed 05/17/2019) Performed for Bariatric surgery status, Vitamin deficiency, Mineral deficiency, Vitamin D deficiency, Intestinal malabsorption, unspecified type (HCC) * CBC W/O DIFFERENTIAL(Performed 05/17/2019) Performed for Bariatric surgery status, Vitamin deficiency, Mineral deficiency, Vitamin D deficiency, Intestinal malabsorption, unspecified type (HCC) * CT ABDOMEN PELVIS W CONTRAST(Performed 01/26/2019) Performed for Epigastric abdominal pain, Bilious vomiting with nausea, Gastric bypass status for obesity * URINE MICROSCOPIC ONLY REFLEX TO CULTURE(Performed 01/26/2019) * URINALYSIS REFLEX MICROSCOPIC REFLEX CULTURE(Performed 01/26/2019) * CULTURE URINE(Performed 01/26/2019) * LIPASE BLOOD(Performed 01/26/2019) * COMPREHENSIVE METABOLIC PANEL(Performed 01/26/2019) * CBC W AUTO DIFFERENTIAL(Performed 01/26/2019) * GLUCOSE - POINT OF CARE(Performed 04/08/2018) * FL FLUORO UPPER GI TRACT + KUB(Performed 04/08/2018) Performed for S/P gastric bypass * GLUCOSE - POINT OF CARE(Performed 04/08/2018) * HEMOGLOBIN A1C(Performed 04/08/2018) * VITAMIN D 25-HYDROXY(Performed 04/08/2018) * BASIC METABOLIC PANEL (CALCIUM TOTAL)(Performed 04/08/2018) * CBC W AUTO DIFFERENTIAL(Performed 04/08/2018) * GLUCOSE - POINT OF CARE(Performed 04/07/2018) * HOME CPAP/BIPAP FOR HOSP USE: NOCTURNAL 02(Performed 04/07/2018) * GLUCOSE - POINT OF CARE(Performed 04/07/2018) * ENDOTRACHEAL TUBE NOTE(Performed 04/07/2018) * LAPAROSCOPIC GASTRIC BYPASS(Performed 04/07/2018) * GLUCOSE - POINT OF CARE(Performed 04/07/2018) * POTASSIUM BLOOD(Performed 04/07/2018) * EKG 12-LEAD(Performed 03/03/2018) Performed for Preop examination * VITAMIN B12(Performed 03/03/2018) Performed for Preop examination * VITAMIN B1(Performed 03/03/2018) Performed for Preop examination * COMPREHENSIVE METABOLIC PANEL(Performed 03/03/2018) Performed for Preop examination * CBC W AUTO DIFFERENTIAL(Performed 03/03/2018) Performed for Preop examination * FL UGI W AIR CONTRAST W KUB(Performed 01/19/2018) Performed for Heartburn, Preop examination Results * RI NASAL ENDOSCOPY,DX (02/10/2024 8:41 AM SCHOOL EXAMINER) George Pack MD - 02/10/2024 8:41 AM SCHOOL EXAMINER George Traore MD 02/10/2024 8:44 AM Procedure [...] Traore MD PROCEDURE/MINOR S URGICAL ORDERABLES * RI NASAL ENDOSCOPY,DX (11/11/2023 4:58 PM CDT) George Pack MD - 11/11/2023 4:58 PM CDT George Traore MD 11/11/2023 5:00 PM Procedure Note Anesthesia: Lidocaine 2% and Kenan-Synephrine [...] The findings were normal unless otherwise noted: Well dissected sinus cavities. No sinusitis, no polyps. The patient tolerated procedure well. Complications: None For all procedures, attending was present and performed the eddy portions of the procedure. George Traore MD PROCEDURE/MINOR S URGICAL ORDERABLES * RI NASAL ENDOSCOPY,DX (08/07/2023 6:31 PM CDT) George Pack MD - 08/07/2023 6:31 PM CDT George Traore MD 08/07/2023 6:34 PM Procedure Note Anesthesia: Lidocaine 2% and Kenan-Synephrine 1/2% Endoscopy Type: Rigid Nasal Endoscopy Procedure Details: Informed consent was obtained. The patient was placed in the sitting position. After topical anesthesia and decongestion, the 4 mm endoscope was passed. The nasal cavities, nasopharynx, were all examined. The findings were recorded. The following findings were noted: Well dissected nasal cavities. No polyps or purulence. The patient tolerated procedure well. Complications: None For all procedures, attending was present and performed the eddy portions of the procedure. George Traore MD PROCEDURE/MINOR S URGICAL ORDERABLES * AUDIOLOGY/TYMPANOMETRY ORDER (08/07/2023 12:36 PM CDT) Yosef Cade, PhD - 08/07/2023 12:58 PM CDT HISTORY: Vikram Seals is a 57 year old male was seen for an assessment of their hearing. Patient indicated that a video batch and furnace manager is not necessary for this appointment. The patient reports difficulty hearing. There is not a report of dizziness. There is not a report of tinnitus. There is a report of otalgia. There is not a report of noise exposure. There is not a history of hearing loss in the family. There is a history of previous ear surgery. RESULTS: Pure-tone air/bone conduction testing revealed a normal sloping to mild sensorineural hearing in the right ear and a normal sloping to moderate mixed hearing in the left ear. Speech Powder Mill Operator Thresholds is in good agreement with pure tone average(see speech audiometry for details). Speech understanding was excellent in the right ear and excellent in the left ear. Immittance measures revealed a Type A tympanogram in the right ear, indicating normal middle ear function. Results for the left ear revealed a DNT tympanogram, indicating SURGICAL middle ear. Findings were reviewed and discussed with Vikram Seals following the hearing evaluation. All questions were answered. PLAN: 1. The risks and benefits of my recommendations, as well as other treatment options were discussed today. 2. I recommend that the patient follow up with their facility, an ENT or PCP PRN. 3. HAE. Yosef Keenan, Ph.D., DEANA., [facility]-A Necktie Operator Pockets And Pieces Director, Division of Audiology Department of Otolaryngology- Head & Neck Surgery [facility] [employer] [facility] Yosef Keenan PhD AUDIOLOGY SERVICES O RDERABLES * RI NASAL ENDOSCOPY,DX (04/29/2023 12:35 PM SCHOOL EXAMINER) Narrative George Traore MD - 04/29/2023 12:35 PM SCHOOL EXAMINER George Traore MD 04/29/2023 12:38 PM Procedure Note Anesthesia: Lidocaine 2% and Kenan-Synephrine 1/2% Endoscopy Type: Rigid Nasal Endoscopy Procedure Details: Informed consent was obtained. The patient was placed in the sitting position. After topical anesthesia and decongestion, the 4 mm endoscope was passed. The nasal cavities, nasopharynx, were all examined. The findings were recorded. The following findings were noted: Well dissected sinus cavities. Mild erythema with no evidence of sinusitis. The patient tolerated procedure well. Complications: None For all procedures, attending was present and performed the eddy portions of the procedure. George Traore MD PROCEDURE/MINOR S URGICAL ORDERABLES * RI ENDO NASAL SINUS BX POLYP DEBRID LIAM (04/03/2023 1:20 PM SCHOOL EXAMINER) Hiram Blair MD - 04/03/2023 1:20 PM SCHOOL EXAMINER Hiram Jolley MD 04/04/2023 6:42 PM Procedure Note Anesthesia: Lidocaine 2% and Kenan-Synephrine 1/2% Endoscopy Type: Rigid Nasal Endoscopy Procedure Details: Informed consent was obtained. The patient was placed in the sitting position. After topical anesthesia and decongestion, the 4 mm endoscope was passed. The nasal cavities, nasopharynx, were all examined. The findings were recorded. The following findings were noted: Synechiae present over middle turbinate and lateral nasal wall bilaterally. Some lateralization of bilateral middle turbinate - treated The patient tolerated procedure well. Complications: None For all procedures, attending was present and performed the eddy portions of the procedure. George Traore MD PROCEDURE/MINOR S URGICAL ORDERABLES * RI ENDO NASAL SINUS BX POLYP DEBRID LIAM (03/18/2023 12:15 PM SCHOOL EXAMINER) George Pack MD - 03/18/2023 12:15 PM SCHOOL EXAMINER George Traore MD 03/18/2023 12:20 PM Procedure Note Anesthesia: Lidocaine 2% and Kenan-Synephrine 1/2% Endoscopy Type: Rigid Nasal Endoscopy with debridement Procedure Details: Informed consent was obtained. The patient was placed in the sitting position. After topical anesthesia and decongestion, the 4 mm endoscope was passed. The nasal cavities, nasopharynx, were all examined. A combination ofsuction and sinus instruments were used to remove crusting and facilitate exam. The findings were recorded. The following findings were noted: B moderate middle meatal debris. Some lateralization of L middle turbinate - treated. The patient tolerated procedure well. Complications: None For all procedures, attending was present and performed the eddy portions of the procedure. George Traore MD PROCEDURE/MINOR S URGICAL ORDERABLES * PATHOLOGY TISSUE (03/12/2023 9:59 AM SCHOOL EXAMINER) Case Report Surgical Pathology Report Case: [id number] Authorizing Provider: George Traore MD Collected: 03/12/2023 09:59 AM Ordering Location: [facility] OR DENIS/AMB SURGERY Received: 03/13/2023 07:22 AM Pathologist: Zarina Chilel MD Specimen: Sinus, Sinonasal contents 03/18/2023 6:25 PM [facility] Final Diagnosis Sinus, sinonasal contents, excision (A): - Chronic sinusitis 03/18/2023 6:25 PM [facility] Microscopic Description and Comment Microscopic examination substantiates the final diagnosis. Eosinophils are rare to absent. 03/18/2023 6:25 PM [facility] Clinical History The patient is a 57-year-old man with chronic pansinusitis. 03/18/2023 6:25 PM [facility] Gross Description The requisition and specimen(s) are identified with the patient's name Vikram Seals . Received in formalin, specimen A , consists of a 5.2 x 2.2 x 1.3 cm aggregate of multiple mackey tissue fragments admixed with red-brown blood clot. Gimp Tacker fragments are submitted in cassette A1. SHELIA 03/18/2023 6:25 PM [facility] Pathologist Location at [facility] 03/18/2023 6:25 PM [facility] Disclaimer The performance characteristics of all immunohistochemical and indirect immunofluorescence stains (if any) cited in this report were determined by the Histopathology Laboratory of [facility]. Some of these tests were developed by our own laboratory and have not been cleared or approved by the US Food and Drug Administration. The FDA does not require this test to go through premarket FDA review. These tests are used for clinical purposes. They should not be regarded as investigational or for research. This laboratory is certified under the Clinical Laboratory Improvement Amendments (CLIA) as qualified to perform high complexity clinical laboratory testing. This case has been personally reviewed and interpreted by the attending (teaching) pathologist. 03/18/2023 6:25 PM [facility] Embedded Images 03/18/2023 6:25 PM [facility] Biopsy, Excision SINUS / Unknown 03/12/20 9:59 AM SCHOOL EXAMINER 03/13/2023 7:22 AM SCHOOL EXAMINER Comment:Pre-op diagnosis: CHRONIC PANSINUSITIS,MIXED CONDUCTIVE AND SENSORINEURAL HEARING LOSS LEFT EAR,PERFORATED LEFT TYMPANIC MEMBRANE Specimen collected by Shahrzad Ryan Mitchell George Traore MD LAB - PATHOLOGY/C YTOLOGY ORDERABLES [facility] [address] [phone] * ETT LINE PERFORMABLE (03/12/2023 9:30 AM SCHOOL EXAMINER) Narrative Jose Maldonado Anes Asst - 03/12/2023 9:30 AM SCHOOL EXAMINER Jose Maldonado Anes Asst 03/12/2023 9:31 AM Endotracheal Tube Placement: Patient Location: OR. Intubation Event Date/Time: 03/12/2023 9:20 AM Procedure: intubation (32605). Procedure Section: Sedation: under general anesthesia. Indications for Airway Management: anesthesia Induction: standard IV Patient Position: supine Mask Ventilation: easy with oral airway. Blade Type: Susan Blade Size: 4 Laryngoscopy View: grade 1 (full cords) Intubation Adjuncts: stylet Tube: endotracheal tube Placement: oral Tube type: cuff - inflated Tube Size (MM): 7.5 Depth of Insertion (CM): 22 Measured From: lips Cuff volume (mL): 6 Cuff Inflated With: air Number of Attempts: 1. Placement Verified By: direct visualization, bilateral breath sounds, chest auscultation and CO2 monitor Tube secured with: adhesive tape. Dentition unchanged? Yes Difficult Airway? No. Procedure Start Time: 03/12/2023 9:20 AM. Staff Section Anesthesia Provider: Jose Maldonado Anes Asst, Performed the procedure Sixto Beverly MD GENERAL ANESTHESIA O RDERABLES * RI EAR MICROSCOPY EXAMINATION (01/16/2023 2:35 PM CDT) Narrative George Traore MD - 01/16/2023 2:35 PM CDT George Traore MD 01/16/2023 5:46 PM Procedure: Microscopic exam of the ear(s) Findings: See main note. Procedure in detail: The binocular operating microscope and and ear speculum were used to exam the ear(s). The patient tolerated the procedure well and there was no bleeding. Findings: Moderate debris around the perforation and extending into pars flaccida. Worse than previous. Milad Yen AUDIT CLERK-PARKING INSPECTOR PROCEDURE/ MINOR SURGICAL ORDERABLES * CT SINUS WO CONTRAST (01/16/2023 1:11 PM CDT) Anatomical Region Laterality Modality Head Computed Tomogra phy 01/16/2023 7:02 PM CDT Impressions 01/16/2023 7:06 PM CDT IMPRESSION: Some degree mucous membrane thickening in all the paranasal sinuses. There is severe mucous memory thickening of both ethmoid sinuses and mild mucous membrane thickening remaining paranasal sinuses. Clinical correlation is recommended. Findings suggestive of a perforation of the left tympanic membrane. Clinical correlation recommended. > Interpreting Provider: Ghanshyam Montilla MD on 01/16/2023 7:06 PM Narrative 01/16/2023 7:06 PM CDT PROCEDURE: CT SINUS WO CONTRAST DATE/TIME OF EXAM: 01/16/2023 1:11 PM CLINICAL INFORMATION: None relevant/not provided if blank. 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 COMPARISON: None. TECHNIQUE: CT of the paranasal sinuses was performed utilizing thin axial collimation without contrast with the localization protocol. Coronal reformatted images were rendered. CT dose reduction technique was used including Automated Exposure Control. FINDINGS: Frontal sinuses: There is mild mucous membrane thickening in the inferior frontal sinuses bilaterally. Ethmoid sinuses: There is severe mucous membrane thickening in both ethmoid sinuses. Sphenoid sinuses: There is mild mucous membrane thickening in both sphenoid sinuses, left side greater than right. Maxillary sinuses: There is mild mucous membrane thickening in both maxillary sinuses, left side greater than right. There is nasoseptal deviation of the right. The left infundibulum is patent. The right infundibulum is opacified. There is some pneumatization of the marko asif and right anterior clinoid process. There is a discontinuity in the left tympanic membrane suggestive of a perforation. Minimal mucous membrane thickening/fluid is noted in the left mastoid air cells. The right mastoid air cells are clear. Procedure Note Ghanshyam Montilla MD - 01/16/2023 PROCEDURE: CT SINUS WO CONTRAST DATE/TIME OF EXAM: 01/16/2023 1:11 PM CLINICAL INFORMATION: None relevant/not provided if blank. 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 COMPARISON: None. TECHNIQUE: CT of the paranasal sinuses was performed utilizing thin axialcollimation without contrast with the localization protocol. Coronal reformattedimages were rendered. CT dose reduction technique was used including Automated ExposureControl. FINDINGS: Frontal sinuses: There is mild mucous membrane thickening in theinferior frontal sinuses bilaterally. Ethmoid sinuses: There is severe mucous membrane thickening in bothethmoid sinuses. Sphenoid sinuses: There is mild mucous membrane thickening in bothsphenoid sinuses, left side greater than right. Maxillary sinuses: There is mild mucous membrane thickening in both maxillary sinuses, left side greater than right. There is nasoseptal deviation of the right. The left infundibulum is patent. The right infundibulum is opacified. There is somepneumatization of the marko asif and right anterior clinoid process. There is a discontinuity in the left tympanic membrane suggestive of a perforation. Minimal mucous membrane thickening/fluid is noted in theleft mastoid air cells. The right mastoid air cells are clear. IMPRESSION: Some degree mucous membrane thickening in all the paranasal sinuses.There is severe mucous memory thickening of both ethmoid sinuses and mildmucous membrane thickening remaining paranasal sinuses. Clinical correlation is recommended. Findings suggestive of a perforation of the left tympanic membrane. Clinical correlation recommended. > Interpreting Provider: Ghanshyam Montilla MD on 01/16/2023 7:06 PM George Traore MD CT ORDERABLES * CT TEMPORAL BONES WO CONTRAST (12/17/2022 6:56 AM CDT) Anatomical Region Laterality Modality Head Computed Tomogra phy 12/17/2022 10:3 3 AM CDT Impressions 12/19/2022 9:50 AM CDT IMPRESSION: Mild thickening of the left tympanic membrane with findings consistent with a perforation involving its anterior aspect, as described above. Mild mucous membrane thickening/fluid in the inferior left mastoid air cells. Severe mucous membrane thickening in both ethmoid sinuses with mild mucous membrane thickening in the remaining visualized paranasal sinuses. The report is dictated by Nathaly Campbell Dr, MD (residential fee appraiser) I, Ghanshyam Montilla MD have personally reviewed and interpreted this examination/study. > Interpreting Provider: Ghanshyam Montilla MD on 12/19/2022 9:50 AM Narrative 12/19/2022 9:50 AM CDT PROCEDURE: CT TEMPORAL BONES WO CONTRAST, DATE/TIME OF EXAM: 12/17/2022 6:56 AM, LOCATION [facility] INDICATION: H72.92: Perforation of left tympanic membrane ADDITIONAL CLINICAL INFORMATION: Ordering Provider Reason For Exam: Technologist Note: Additional: EXAMINATION: Computed tomography (CT) of the temporal bones without contrast TECHNIQUE: CT of the temporal bones was performed without contrast according to standard protocol. CT dose reduction technique was used, including Automated Exposure Control. COMPARISON: No prior study is available for comparison at the time of this dictation. FINDINGS: The left external auditory canals patent. There is mild thickening of the left tympanic membrane with a defect consistent with perforation involving its anterior aspect. The left mastoid air cells are moderately developed. Mild mucous membrane thickening/fluid is present in the inferior left mastoid air cells. The left tegmen tympani is intact. The left middle ear cavity is aerated and the ossicles are normal position. The left cochlea, vestibule, and semicircular canals have a normal appearance. The left vestibular aqueduct is not enlarged. The left carotid and facial canals are normal. Left internal auditory canals normal in size. The right external auditory canals patent. The right tympanic membrane appears intact. The right mastoid air cells are moderately developed and clear. The right tegmen tympani is intact. The right middle ear cavity is aerated and the ossicles are normal position. The right cochlea, vestibule, and semicircular canals have a normal appearance. The right vestibular aqueduct is not enlarged. The right carotid and facial canals are normal. The right internal auditory canals normal in size. Severe mucous membrane thickening is present in both ethmoid sinuses with mild mucous membrane thickening in the many visualized paranasal sinuses. Procedure Note Ghanshyam Montilla MD - 12/19/2022 PROCEDURE: CT TEMPORAL BONES WO CONTRAST, DATE/TIME OF EXAM: 12/17/2022 6:56 AM, LOCATION [facility] INDICATION: H72.92: Perforation of left tympanic membrane ADDITIONAL CLINICAL INFORMATION: Ordering Provider Reason For Exam: Technologist Note: Additional: EXAMINATION: Computed tomography (CT) of the temporal bones without contrast TECHNIQUE: CT of the temporal bones was performed without contrast according to standard protocol. CT dose reduction technique was used, including Automated Exposure Control. COMPARISON: No prior study is available for comparison at the time ofthis dictation. FINDINGS: The left external auditory canals patent. There is mild thickening ofthe left tympanic membrane with a defect consistent with perforationinvolving its anterior aspect. The left mastoid air cells are moderatelydeveloped. Mild mucous membrane thickening/fluid is present in the inferior left mastoid air cells. The left tegmen tympani is intact. The left middleear cavity is aerated and the ossicles are normal position. The leftcochlea, vestibule, and semicircular canals have a normal appearance. The left vestibular aqueduct is not enlarged. The left carotid and facial canalsare normal. Left internal auditory canals normal in size. The right external auditory canals patent. The right tympanic membrane appears intact. The right mastoid air cells are moderately developed and clear. The right tegmen tympani is intact. The right middle ear cavityis aerated and the ossicles are normal position. The right cochlea,vestibule, and semicircular canals have a normal appearance. The right vestibular aqueduct is not enlarged. The right carotid and facial canals arenormal. The right internal auditory canals normal in size. Severe mucous membrane thickening is present in both ethmoid sinuseswith mild mucous membrane thickening in the many visualized paranasalsinuses. IMPRESSION: Mild thickening of the left tympanic membrane with findings consistentwith a perforation involving its anterior aspect, as described above. Mild mucous membrane thickening/fluid in the inferior left mastoid air cells. Severe mucous membrane thickening in both ethmoid sinuses with mildmucous membrane thickening in the remaining visualized paranasal sinuses. The report is dictated by Nathaly Campbell Dr, MD (residential fee appraiser) I, Ghanshyam Montilla MD have personally reviewed and interpreted this examination/study. > Interpreting Provider: Ghanshyam Montilla MD on 12/19/2022 9:50 AM George Traore MD CT ORDERABLES * RI EAR MICROSCOPY EXAMINATION (12/03/2022 3:48 PM CDT) Narrative George Traore MD - 12/03/2022 3:48 PM CDT Hiram Jolley MD 12/03/2022 5:22 PM Procedure: Microscopic Ear Exam Details: Informed consent was obtained. The patient was placed in the supine position. The operative microscope used to visualize both ear canals and tympanic membranes. The patient tolerated the procedure without complication. Findings: 15-20% perforation over left anterior tympanic membrane not involving anterior margin. No evidence of cholesteatoma. George Traore MD PROCEDURE/MINOR S URGICAL ORDERABLES * AUDIOLOGY/TYMPANOMETRY ORDER (12/03/2022 12:35 PM CDT) Narrative Isela Last AuD - 12/03/2022 1:04 PM CDT History: Vikram Seals arrived for a hearing evaluation. Patient reports issues with hearing and perforation on his left eardrum. He denies tinnitus, dizziness, and otalgia. There is not a history of noise exposure. There is not a family history of hearing loss. There is not a history of surgery on either ear(s), but patient reports having tubes in both ears as a child growing up. Results: Puretone air/bone conduction testing revealed normal hearing with a mild sensorineural hearing loss at 4 kHz in the right ear and normal hearing sloping to moderately severe, rising to moderate at 8 kHz mixed hearing loss in the left ear. Speech understanding was excellent in the right ear and excellent in the left ear. Immittance measures revealed a Type A tympanogram in the right ear, indicating normal middle ear function.Could not obtain a seal for left ear immittance measures These results were discussed in detail with the patient and all pertinent questions were answered. Recommendations: 1) ENT consult. 2) Re check per medical recommendation, annually, or if a change in hearing is suspected. 3) Amplification pending interest/medical clearance if hearing loss persists. Lance Gilliam. Audiology Research Clerk Isela LastCici. [facility] Clinical Seed Mill Superintendent [facility]ol[facility] [address] [facility] ([facility] [place] [address] Isela Last Cici AUDIOLOGY SERVICES O RDERABLES * LAB (11/21/2020) Guillaume Hardin MD SCANNING ONLY * VITAMIN K1 (05/17/2019 8:50 AM SCHOOL EXAMINER) Vitamin K 162 130 - 1500 pg/mL [facility] Comment: Due to potential interferences, Vitamin K1 levels cannot be determined in individuals taking Vitamin K2 supplements. This test was developed and its analytical performance characteristics have been determined by [employer]. It has not been cleared or approved by the FDA. This assay has been validated pursuant to the CLIA regulations and is used for clinical purposes. Test Performed at: [facility] [id number] [place] [address] RAY MOSS MD,PHD Blood BLOOD SPECIMEN / Unknown 05/17/2019 8:50 AM SCHOOL EXAMINER 05/17/2019 8:54 AM SCHOOL EXAMINER Juanienoc Kennedy Quirino AUDIT CLERK-PARKING INSPECTOR LAB - [facility] ORDERABLES [facility] [address] [place] [address] * ZINC BLOOD (05/17/2019 8:50 AM SCHOOL EXAMINER) Zinc 60 60 - 130 mcg/dL [facility] Comment: This test was developed and its analytical performance characteristics have been determined by [employer]. It has not been cleared or approved by the FDA. This assay has been validated pursuant to the CLIA regulations and is used for clinical purposes. Test Performed at: [facility] [address] [place] [address] RAY MOSS MD,PHD Blood BLOOD SPECIMEN / Unknown 05/17/2019 8:50 AM SCHOOL EXAMINER 05/17/2019 8:54 AM SCHOOL EXAMINER Juani Kennedy Quirino AUDIT CLERK-PARKING INSPECTOR LAB - [facility] ORDERABLES Performing Organization Address [facility] de Phone Number [facility] [address] [place] [address] * VITAMIN A (05/17/2019 8:50 AM SCHOOL EXAMINER) [facility] Vitamin A 50 38 - 98 mcg/dL [facility] Comment: Clin Chem Vol. 34.No.8. [id number]. 1998 Vitamin supplementation within 24 hours prior to blood draw may affect the accuracy of results. This test was developed and its analytical performance characteristics have been determined by [employer]. It has not been cleared or approved by the FDA. This assay has been validated pursuant to the CLIA regulations and is used for clinical purposes. Test Performed at: [facility] [address] [address] RAY MOSS MD,PHD Blood BLOOD SPECIMEN / Unknown 05/17/2019 8:50 AM SCHOOL EXAMINER 05/17/2019 8:54 AM SCHOOL EXAMINER Juani Marciastar Win AUDIT CLERK-[facility] ORDERABLES Performing Organization Address [facility] de Phone Number [facility] [address] [place] [address] * VITAMIN E (05/17/2019 8:50 AM SCHOOL EXAMINER) [facility] Alpha-Tocopherol 7.9 mg/L [facility] Comment: Reference Range 5.7-19.9 mg/L Levels of alpha-tocopherol <5 mg/L are consistent with Vitamin E deficiency in adults. Vitamin supplementation within 24 hours prior to blood draw may affect the accuracy of results. This test was developed and its analytical performance characteristics have been determined by [employer]. It has not been cleared or approved by the FDA. This assay has been validated pursuant to the CLIA regulations and is used for clinical purposes. Beta-Gamma Tocopherol <1.0 <4.4 mg/L [facility] Comment: This test was developed and its analytical performance characteristics have been determined by [employer]. It has not been cleared or approved by the FDA. This assay has been validated pursuant to the CLIA regulations and is used for clinical purposes. Test Performed at: [facility] [address] [address] RAY MOSS MD,PHD Blood BLOOD SPECIMEN / Unknown 05/17/2019 8:50 AM SCHOOL EXAMINER 05/17/2019 8:54 AM SCHOOL EXAMINER Juani Kennedy Moydeecorine AUDIT CLERK-PARKING INSPECTOR LAB - [facility] ORDERABLES Performing Organization Address [facility] de Phone Number [facility] [address] [place] [phone] * (ABNORMAL) VITAMIN B1 (05/17/2019 8:50 AM SCHOOL EXAMINER) Only the most recent of2 resultswithin the time period is included. Vitamin B1 Whole Blood 198(H) 78 - 185 nmol/L [facility] Comment: Vitamin supplementation within 24 hours prior to blood draw may affect the accuracy of results. This test was developed and its analytical performance characteristics have been determined by [employer]. It has not been cleared or approved by the FDA. This assay has been validated pursuant to the CLIA regulations and is used for clinical purposes. Test Performed at: [facility] [address] [address] RAY MOSS MD,PHD Blood BLOOD SPECIMEN / Unknown 05/17/2019 8:50 AM SCHOOL EXAMINER 05/17/2019 8:54 AM SCHOOL EXAMINER Juani Kennedy Quirino AUDIT CLERK-[facility] - [facility] ORDERABLES Performing Organization Address [facility] de Phone Number [facility] [phone] [place] [address] * SELENIUM (05/17/2019 8:50 AM SCHOOL EXAMINER) Pathologist [facility] Selenium 123 63 - 160 mcg/L [facility] Comment: This test was developed and its analytical performance characteristics have been determined by [employer]. It has not been cleared or approved by the FDA. This assay has been validated pursuant to the CLIA regulations and is used for clinical purposes. Test Performed at: [facility] [address] [address] RAY MOSS MD,PHD Blood BLOOD SPECIMEN / Unknown 05/17/2019 8:50 AM SCHOOL EXAMINER 05/17/2019 8:54 AM SCHOOL EXAMINER Juani Kennedy Quirino AUDIT CLERK-PARKING INSPECTOR LAB - [facility] ORDERABLES Performing Organization Address [facility] de Phone Number [place] [phone] * PTH INTACT (05/17/2019 8:50 AM SCHOOL EXAMINER) PTH Intact 28 14 - 64 pg/mL [facility] Comment: Interpretive Guide Intact PTH Calcium ------- Normal Parathyroid Normal Normal Hypoparathyroidism Low or Low Normal Low Hyperparathyroidism Primary Normal or High High Secondary High Normal or Low Tertiary High High Non-Parathyroid Hypercalcemia Low or Low Normal High Test Performed at: [facility] [address] [place] [address] CITLALI WINCHESTER DO,MPH Blood BLOOD SPECIMEN / Unknown 05/17/2019 8:50 AM SCHOOL EXAMINER 05/17/2019 8:54 AM SCHOOL EXAMINER Juani Kennedy Quirino AUDIT CLERK-PARKING INSPECTOR LAB - [facility] ORDERABLES Performing Organization Address [facility] de Phone Number [place] [phone] * COPPER BLOOD (05/17/2019 8:50 AM SCHOOL EXAMINER) Pathologist [facility] Copper 96 70 - 175 mcg/dL [facility] Comment: This test was developed and its analytical performance characteristics have been determined by [employer]. It has not been cleared or approved by the FDA. This assay has been validated pursuant to the CLIA regulations and is used for clinical purposes. Test Performed at: [facility] [address] [place] [address] RAY MOSS MD,PHD Blood BLOOD SPECIMEN / Unknown 05/17/2019 8:50 AM SCHOOL EXAMINER 05/17/2019 8:54 AM SCHOOL EXAMINER Juani Kennedy Quirino AUDIT CLERK-PARKING INSPECTOR LAB - [facility] ORDERABLES Performing Organization Address [facility]/[place] [address] * FOLATE RBC (05/17/2019 8:50 AM SCHOOL EXAMINER) Folate RBC 488 >280 ng/mL RBC [facility] Comment: Test Performed at: [facility] [address] [facility] [place] [address] CITLALI WINCHESTER DO,MPH Blood BLOOD SPECIMEN / Unknown 05/17/2019 8:50 AM SCHOOL EXAMINER 05/17/2019 8:54 AM SCHOOL EXAMINER Juani Marcia Win APRN-PARKING INSPECTOR LAB - [facility] ORDERABLES Performing Organization Address [facility] de Phone Number [facility] [address] [place] [address] * VITAMIN D 25-HYDROXY (05/17/2019 8:50 AM SCHOOL EXAMINER) Only the most recent of2 resultswithin the time period is included. Vitamin D, 25 Hydroxy 63 30 - 100 ng/mL [facility] Comment: Vitamin D Status 25-OH Vitamin D: Deficiency: <20 ng/mL Insufficiency: 20 - 29 ng/mL Optimal: > or = 30 ng/mL For 25-OH Vitamin D testing on patients on D2-supplementation and patients for whom quantitation of D2 and D3 fractions is required, the QuestAssureD() 25-OH VIT D, (D2,D3), LC/MS/MS is recommended: order code [id number] (patients >2yrs). For more information on this test, go to: http://education.Unomy/faq/JOY900 (This link is being provided for informational/educational purposes only.) Test Performed at: [facility] [address] [employer] [address] CITLALI WINCHESTER DO,MPH Blood BLOOD SPECIMEN / Unknown 05/17/2019 8:50 AM SCHOOL EXAMINER 05/17/2019 8:54 AM SCHOOL EXAMINER Juani Win APRN-PARKING INSPECTOR LAB - [facility] ORDERABLES Performing Organization Address [facility] Co de Phone Number [facility] [address] [place] [address] * CBC W/O DIFFERENTIAL (05/17/2019 8:50 AM SCHOOL EXAMINER) [facility] White Blood Cell Count 7.1 3.8 - 10.8 Thousand/u L [facility] RBC 4.66 4.20 - 5.80 Million/uL [facility] Hemoglobin 14.0 13.2 - 17.1 g/dL [facility] Hematocrit 43.3 38.5 - 50.0 % [facility] MCV 92.9 80.0 - 100.0 fL [facility] MCH 30.0 27.0 - 33.0 pg [facility] MCHC 32.3 32.0 - 36.0 g/dL [facility] RDW 12.3 11.0 - 15.0 % [facility] Platelet Count 224 140 - 400 Thousand/u L [facility] MPV 11.5 7.5 - 12.5 fL [facility] Comment: Test Performed at: [facility] [address] [place] [address] CITLALI WINCHESTER DO,MPH Blood BLOOD SPECIMEN / Unknown 05/17/2019 8:50 AM SCHOOL EXAMINER 05/17/2019 8:54 AM SCHOOL EXAMINER Juani Marcia Win APRN-[facility] - HEM ATOLOGY ORDERABLES Performing Organization Address [facility] de Phone Number [facility] [address] [place] [phone] * (ABNORMAL) COMPREHENSIVE METABOLIC PANEL (05/17/2019 8:50 AM SCHOOL EXAMINER) Only the most recent of3 resultswithin the time period is included. [facility] Glucose 94 65 - 99 mg/dL [facility] Comment: Fasting reference interval BUN 14 7 - 25 mg/dL [facility] Creatinine 0.85 0.70 - 1.33 mg/dL [facility] Comment: For patients >49 years of age, the reference limit for Creatinine is approximately 13% higher for people identified as -Zambian. eGFR by MDRD 99 > OR = [...] 46 U/L [facility] Comment: Test Performed at: [place] [address] CITLALI WINCHESTER DO,MPH Blood BLOOD SPECIMEN / Unknown 05/17/2019 8:50 AM SCHOOL EXAMINER 05/17/2019 8:54 AM SCHOOL EXAMINER Juani Win APRN-PARKING INSPECTOR LAB - [facility] ORDERABLES Performing Organization Address [facility] de Phone Number [facility] [phone] [place] [address] * PREALBUMIN (05/17/2019 8:50 AM SCHOOL EXAMINER) Prealbumin 22 21 - 43 mg/dL [facility] Comment: Test Performed at: [facility] [address] [place] [address] CITLALI WINCHESTER DO,MPH Blood BLOOD SPECIMEN / Unknown 05/17/2019 8:50 AM SCHOOL EXAMINER 05/17/2019 8:54 AM SCHOOL EXAMINER Juani Win AUDIT CLERK-PARKING INSPECTOR LAB - [facility] ORDERABLES Performing Organization Address [facility] [place] [address] * MAGNESIUM BLOOD (05/17/2019 8:50 AM SCHOOL EXAMINER) Magnesium 1.8 1.5 - 2.5 mg/dL [facility] Comment: Test Performed at: [facility] [address] [address] [employer] [facility] [address] CITLALI WINCHESTER DO,MPH Blood BLOOD SPECIMEN / Unknown 05/17/2019 8:50 AM SCHOOL EXAMINER 05/17/2019 8:54 AM SCHOOL EXAMINER Juani Win AUDIT CLERK-PARKING INSPECTOR LAB - [facility] ORDERABLES Performing Organization Address [facility] Co de Phone Number [facility] [phone] [place] [address] * (ABNORMAL) IRON BLOOD (05/17/2019 8:50 AM SCHOOL EXAMINER) Iron 41(L) 50 - 180 mcg/dL [facility] Comment: Test Performed at: [facility] [facility] [place] [address] CITLALI WINCHESTER DO,MPH Blood BLOOD SPECIMEN / Unknown 05/17/2019 8:50 AM SCHOOL EXAMINER 05/17/2019 8:54 AM SCHOOL EXAMINER Juani Garycorine AUDIT CLERK-PARKING INSPECTOR LAB - [facility] ORDERABLES Performing Organization Address [facility] Co de Phone Number [facility] [address] [place] [address] * VITAMIN B12 (05/17/2019 8:50 AM SCHOOL EXAMINER) Only the most recent of2 resultswithin the time period is included. Vitamin B12 957 200 - 1100 pg/mL [facility] Comment: Test Performed at: [facility] [place] [address] CITLALI WINCHESTER DO,MPH Blood BLOOD SPECIMEN / Unknown 05/17/2019 8:50 AM SCHOOL EXAMINER 05/17/2019 8:54 AM SCHOOL EXAMINER Juani Win AUDIT CLERK-PARKING INSPECTOR LAB - [facility] ORDERABLES Performing Organization Address [facility] Co de Phone Number [facility] [address] [place] [address] * FERRITIN (05/17/2019 8:50 AM SCHOOL EXAMINER) Ferritin 201 38 - 380 ng/mL [facility] Comment: Test Performed at: [facility] [address] [address] [place]AS [id number] CITLALI WINCHESTER DO,MPH Blood BLOOD SPECIMEN / Unknown 05/17/2019 8:50 AM SCHOOL EXAMINER 05/17/2019 8:54 AM SCHOOL EXAMINER Juani Win AUDIT CLERK-PARKING INSPECTOR LAB - [facility] ORDERABLES [address] [place] [address] * CT ABDOMEN AND PELVIS WITH IV CONTRAST (01/26/2019 11:50 PM SCHOOL EXAMINER) Anatomical Region Laterality Modality Abdomen, Pelvis Computed Tomogra phy 01/27/2019 12:1 0 AM SCHOOL EXAMINER Impressions 01/27/2019 12:17 AM SCHOOL EXAMINER Left obstructive ureteral stone measuring 2 mm in diameter approximately 7 cm from the renal pelvis. Reading Radiologist: Bryan Castro MD on 01/27/2019 at 12:17 AM Narrative 01/27/2019 12:17 AM SCHOOL EXAMINER STUDY: CT OF THE ABDOMEN AND PELVIS WITH CONTRAST HISTORY: Epigastric pain and left lower quadrant pain radiating to left lower back which started at approximately 4:00 PM today. Bilious vomiting with nausea. 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 COMPARISON: None available. TECHNIQUE: CT of the abdomen and pelvis was performed from the lung bases to the proximal femurs following the uneventful intravenous administration of 81 mL of Isovue-370. Oral contrast was also administered. Multiplanar reconstructions were reviewed. Dose reduction techniques were utilized. FINDINGS: The lung bases are clear. There is no pleural effusion. The heart is normal in size without pericardial effusion. Calcifications are seen. The unenhanced liver is normal in size and morphology. The gallbladder is unremarkable. There is no intra-or extrahepatic biliary ductal dilation. The pancreas, spleen, and adrenal glands are unremarkable. Multiple renal cysts measuring up to 1 cm on the right and 2 cm in the left are seen. The left kidney demonstrates pelviectasis and proximal hydroureter with a 2 mm diameter stone seen at a ureteral transition point (series 2, image 55) which is approximately 7 cm from the renal pelvis. The urinary bladder is well-distended and unremarkable. The prostate gland and seminal vesicles are unremarkable. Surgical changes of sleeve gastrectomy are seen. The partially opacified small and large bowel are normal in wall thickness and caliber. The appendix is not seen. There is no lymphadenopathy. There is no free air or fluid. There is no significant atherosclerotic calcification of the abdominal aorta or its branches. The superficial soft tissues are unremarkable. The osseous structures are unremarkable. Procedure Note Bryan Castro MD - 01/27/2019 STUDY: CT OF THE ABDOMEN AND PELVIS WITH CONTRAST HISTORY: Epigastric pain and left lower quadrant pain radiating to left lower back which started at approximately 4:00 PM today. Bilious vomiting with nausea. 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 COMPARISON: None available. TECHNIQUE: CT of the abdomen and pelvis was performed from the lung bases to the proximal femurs following the uneventful intravenous administration of 81 mL of Isovue-370. Oral contrast was also administered. Multiplanar reconstructions were reviewed. Dose reduction techniques were utilized. FINDINGS: The lung bases are clear. There is no pleural effusion. The heart is normal in size without pericardial effusion. Calcifications are seen. The unenhanced liver is normal in size and morphology. The gallbladder is unremarkable. There is no intra-or extrahepatic biliary ductal dilation. The pancreas, spleen, and adrenal glands are unremarkable. Multiple renal cysts measuring up to 1 cm on the right and 2 cm in the left are seen. The left kidney demonstrates pelviectasis and proximal hydroureter with a 2 mm diameter stone seen at a ureteral transition point (series 2, image 55) which is approximately 7 cm from the renal pelvis. The urinary bladder is well-distended and unremarkable. The prostate gland and seminal vesicles are unremarkable. Surgical changes of sleeve gastrectomy are seen. The partially opacified small and large bowel are normal in wall thickness and caliber. The appendix is not seen. There is no lymphadenopathy. There is no free air or fluid. There is no significant atherosclerotic calcification of the abdominal aorta or its branches. The superficial soft tissues are unremarkable. The osseous structures are unremarkable. IMPRESSION Left obstructive ureteral stone measuring 2 mm in diameter approximately 7 cm from the renal pelvis. Reading Radiologist: Bryan Castro MD on 01/27/2019 at 12:17 AM Guillaume Hardin MD CT ORDERABLES * (ABNORMAL) URINE MICROSCOPIC ONLY REFLEX TO CULTURE (01/26/2019 11:39 PM SCHOOL EXAMINER) Reflex Status Culture to follow 01/26/2019 11:55 PM SCHOOL EXAMINER [facility] RBC UA >100(A) None Seen, 0-2, 3-5 # /hpf 01/26/2019 11:55 PM SCHOOL EXAMINER [facility] WBC UA 11-20(A) None Seen, 0-5 # /hpf 01/26/2019 11:55 PM SCHOOL EXAMINER [facility] Bacteria UA None Seen None Seen 01/26/2019 11:55 PM SCHOOL EXAMINER [facility] Squamous Epithelial Cells None Seen None Seen, 0-2, 3-5 /hpf 01/26/2019 11:55 PM SCHOOL EXAMINER [facility] Calcium Oxalate Crystals Few(A) None seen /HPF 01/26/2019 11:55 PM SCHOOL EXAMINER [facility] Urine URINE SPECIMEN OBTAINED BY CLEAN CATCH PROCEDURE / Unknown Collection / Unknown 01/26/2019 11:39 PM SCHOOL EXAMINER 01/26/2019 11:42 PM SCHOOL EXAMINER Narrative [facility] - 01/26/2019 11:55 PM SCHOOL EXAMINER Kevin Sparks DO LAB - URINALYSIS ORD ERABLES [facility] [address] [place] [address] * (ABNORMAL) URINALYSIS REFLEX MICROSCOPIC REFLEX CULTURE (01/26/2019 11:39 PM SCHOOL EXAMINER) Color UA Renata(A) Straw, Yellow 01/26/2019 11:51 PM SCHOOL EXAMINER [facility] Clarity UA Cloudy(A) Clear 01/26/2019 11:51 PM SCHOOL EXAMINER [facility] Glucose UA Negative Negative 01/26/2019 11:51 PM SCHOOL EXAMINER [facility] Bilirubin UA Negative Negative 01/26/2019 11:51 PM SCHOOL EXAMINER [facility] Ketone UA 1+(A) Negative 01/26/2019 11:51 PM SCHOOL EXAMINER [facility] Specific [place] UA 1.021 1.005 - 1.030 01/26/2019 11:51 PM SCHOOL EXAMINER [facility] Blood UA 3+(A) Negative 01/26/2019 11:51 PM SCHOOL EXAMINER [facility] pH UA 5.0 5.0 - 8.0 pH 01/26/2019 11:51 PM SCHOOL EXAMINER [facility] Protein UA 1+(A) Negative 01/26/2019 11:51 PM SCHOOL EXAMINER [facility] Urobilinogen UA 4.0(A) Negative mg/dL 01/26/2019 11:51 PM SCHOOL EXAMINER [facility] Nitrite UA Negative Negative 01/26/2019 11:51 PM SCHOOL EXAMINER [facility] Leukocyte UA Negative Negative 01/26/2019 11:51 PM SCHOOL EXAMINER [facility] Urine Microscopy Urine microscopy to follow 01/26/2019 11:51 PM SCHOOL EXAMINER [facility] Reflex Status Culture not indicated 01/26/2019 11:51 PM SCHOOL EXAMINER [facility] Urine URINE SPECIMEN OBTAINED BY CLEAN CATCH PROCEDURE / Unknown Collection / Unknown 01/26/2019 11:39 PM SCHOOL EXAMINER 01/26/2019 11:42 PM SCHOOL EXAMINER Narrative [facility] - 01/26/2019 11:51 PM SCHOOL EXAMINER Kevin Sparks DO LAB - URINALYSIS ORD ERABLES Performing Organization Address City/[facility]/ZIP Co de Phone Number [facility] [address] [place] [address] * CULTURE URINE (01/26/2019 11:39 PM SCHOOL EXAMINER) Pathologist [facility] Culture Urine No growth (<100 CFU/mL) ALEJANDRO 01/28/2019 12:02 PM SCHOOL EXAMINER [facility] Urine URINE SPECIMEN OBTAINED BY CLEAN CATCH PROCEDURE / Unknown Collection / Unknown 01/26/2019 11:39 PM SCHOOL EXAMINER 01/26/2019 11:42 PM SCHOOL EXAMINER Kevin Sparks DO LAB - MICROBIOLOGY O RDERABLES Performing Organization Address City/[facility]/ZIP Co de Phone Number [facility] [address] [phone] * (ABNORMAL) CBC W AUTO DIFFERENTIAL (01/26/2019 9:43 PM SCHOOL EXAMINER) Only the most recent of3 resultswithin the time period is included. WBC 10.6 4.4 - 10.7 x10E9/L 01/26/2019 9:55 PM SCHOOL EXAMINER [facility] WBC Corrected 01/26/2019 9:55 PM SCHOOL EXAMINER [facility] RBC 4.55 3.80 - 5.40 x10E12/L 01/26/2019 9:55 PM SCHOOL EXAMINER [facility] Hemoglobin 13.2 12.0 - 17.6 gm/dL 01/26/2019 9:55 PM SCHOOL EXAMINER [facility] Hematocrit 41.8 35.2 - 51.7 % 01/26/2019 9:55 PM SCHOOL EXAMINER [facility] MCV 91.9 80.7 - 98.3 fl 01/26/2019 9:55 PM SCHOOL EXAMINER [facility] MCH 29.0 26.7 - 34.0 pg 01/26/2019 9:55 PM SCHOOL EXAMINER [facility] MCHC 31.6 30.8 - 35.9 gm/dL 01/26/2019 9:55 PM [facility] Platelet Count 206 153 - 416 x10E9/L 01/26/2019 9:55 PM [facility] RDW-CV 12.9 12.1 - 14.9 % 01/26/2019 9:55 PM [facility] MPV 11.9 9.4 - 12.9 fl 01/26/2019 9:55 PM [facility] Neutrophils % 79.0(H) 44.0 - 73.0 % 01/26/2019 9:55 PM [facility] Lymphocytes % 14.1(L) 20.0 - 43.0 % 01/26/2019 9:55 PM [facility] Monocytes % 4.8(L) 5.0 - 13.0 % 01/26/2019 9:55 PM [facility] Eosinophils % 1.5 0.0 - 6.0 % 01/26/2019 9:55 PM [facility] Basophils % 0.3 0.0 - 2.0 % 01/26/2019 9:55 PM [facility] Immature Granulocytes 0.3 0 - 1 % 01/26/2019 9:55 PM SCHOOL EXAMINER [facility] Neutrophil Absolute 8.41(H) 2.01 - 7.14 x10E9/L 01/26/2019 9:55 PM SCHOOL EXAMINER [facility] Lymphocytes Absolute 1.50 1.07 - 3.94 x10E9/L 01/26/2019 9:55 PM [facility] Monocytes Absolute 0.51 0.26 - 1.07 x10E9/L 01/26/2019 9:55 PM SCHOOL EXAMINER [facility] Eosinophils Absolute 0.16 0 - 0.47 x10E9/L 01/26/2019 9:55 PM SCHOOL EXAMINER [facility] Basophils Absolute 0.03 0 - 0.08 x10E9/L 01/26/2019 9:55 PM SCHOOL EXAMINER [facility] Immature Granulocytes Absolute 0.03 0.00 - 0.06 x10E9/L 01/26/2019 9:55 PM SCHOOL EXAMINER [facility] nRBC Auto 0 /100 WBC 01/26/2019 9:55 PM SCHOOL EXAMINER [facility] Blood BLOOD SPECIMEN / Unknown Venipuncture / Unknown 01/26/2019 9:43 PM SCHOOL EXAMINER 01/26/2019 9:46 PM SCHOOL EXAMINER Kevin Sparks DO LAB - HEMATOLOGY ORD ERABLES Performing Organization Address [facility]/ZIP Co de Phone Number [facility] [id number] [place] [address] * (ABNORMAL) LIPASE BLOOD (01/26/2019 9:43 PM SCHOOL EXAMINER) Lipase 88(H) 8 - 78 U/L 01/26/2019 10:04 PM SCHOOL EXAMINER [facility] Blood BLOOD SPECIMEN / Unknown Venipuncture / Unknown 01/26/2019 9:43 PM SCHOOL EXAMINER 01/26/2019 9:46 PM SCHOOL EXAMINER Kevin Sparks DO LAB - CHEMISTRY ORDE RABLES Performing Organization Address [facility] Co de Phone Number [facility] [id number] [place] [address] * GLUCOSE - POINT OF CARE (04/08/2018 12:25 PM SCHOOL EXAMINER) Only the most recent of5 resultswithin the time period is included. Glucose WB/POC 105 70 - 106 mg/dL 04/08/2018 2:00 PM SCHOOL EXAMINER [facility] Blood BLOOD SPECIMEN / Unknown 04/08/2018 12:25 PM SCHOOL EXAMINER 04/08/2018 2:00 PM SCHOOL EXAMINER Guillaume Hardin MD LAB - POINT OF CARE ORDERABLES Performing Organization Address [facility]/ZIP Co de Phone Number [facility] [address] [place] [address] * FL FLUORO UPPER GI TRACT + KUB (04/08/2018 9:36 AM SCHOOL EXAMINER) Anatomical Region Laterality Modality Abdomen Radiographic Jessenia ging 04/08/2018 10:5 6 AM SCHOOL EXAMINER Impressions 04/08/2018 10:57 AM SCHOOL EXAMINER UNREMARKABLE POSTOPERATIVE APPEARANCE OF THE STOMACH, FOLLOWING A CONG-EN-Y GASTROJEJUNOSTOMY Reading Radiologist: Jeferson Tipton MD on 04/08/2018 at 10:57 AM Narrative 04/08/2018 10:57 AM SCHOOL EXAMINER POSTOPERATIVE UPPER GI INDICATION: Post bariatric surgery FINDINGS: He swallowed water-soluble contrast without difficulty, showing a smooth and coordinated motion. There is a small gastric remnant which empties rapidly into the jejunostomy. There is no evidence of obstruction or extravasation. Procedure Note Jeferson Tipton MD - 04/08/2018 POSTOPERATIVE UPPER GI INDICATION: Post bariatric surgery FINDINGS: He swallowed water-soluble contrast without difficulty, showing a smooth and coordinated motion. There is a small gastric remnant which empties rapidly into the jejunostomy. There is no evidence of obstruction or extravasation. IMPRESSION UNREMARKABLE POSTOPERATIVE APPEARANCE OF THE STOMACH, FOLLOWING A CONG-EN-Y GASTROJEJUNOSTOMY Reading Radiologist: Jeferson Tipton MD on 04/08/2018 at 10:57 AM Guillaume Hardin MD FLUOROSCOPY ORDERABL ES * HEMOGLOBIN A1C (04/08/2018 4:18 AM SCHOOL EXAMINER) Hemoglobin A1c 6.3 4.2 - 6.3 % 04/08/2018 5:00 AM SCHOOL EXAMINER [facility] Estimated Average Glucose 134 mg/dL 04/08/2018 5:00 AM SCHOOL EXAMINER [facility] Blood BLOOD SPECIMEN / Unknown Venipuncture / Unknown 04/08/2018 4:18 AM SCHOOL EXAMINER 04/08/2018 4:37 AM SCHOOL EXAMINER Arnaldo Montelongo AUDIT CLERK-PARKING INSPECTOR LAB - CHEMISTR Y ORDERABLES [facility] [address] [place] [address] * (ABNORMAL) BASIC METABOLIC PANEL (CALCIUM TOTAL) (04/08/2018 4:18 AM [facility]) Glucose 142(H) 74 - 106 mg/dL 04/08/2018 5:06 AM [facility] Sodium 135(L) 136 - 145 mmol/L 04/08/2018 5:06 AM [facility] Potassium 4.2 3.5 - 5.1 mmol/L 04/08/2018 5:06 AM [facility] Chloride 103 98 - 107 mmol/L 04/08/2018 5:06 AM [facility] CO2 26 22 - 31 mmol/L 04/08/2018 5:06 AM [facility] Calcium 9.2 8.5 - 10.1 mg/dL 04/08/2018 5:06 AM [facility] Anion Gap 6(L) 8 - 16 mmol/L 04/08/2018 5:06 AM [facility] BUN 16 7 - 21 mg/dL 04/08/2018 5:06 AM [facility] Creatinine 1.00 0.50 - 1.30 mg/dL 04/08/2018 5:06 AM [facility] eGFR by MDRD >60 >60 mL/min/1.7 3m2 04/08/2018 5:06 AM [facility] eGFR by MDRD >60 >60 mL/min/1.7 3m2 04/08/2018 5:06 AM [facility] Blood BLOOD SPECIMEN / Unknown Venipuncture / Unknown 04/08/2018 4:18 AM SCHOOL EXAMINER 04/08/2018 4:37 AM [facility] Guillaume Hardin MD LAB - CHEMISTRY BASSME ALCALA [facility] Organization Address City/State/ZIP Co de Phone Number [facility] [address] [place] [address] * ENDOTRACHEAL TUBE NOTE (04/07/2018 1:58 PM SCHOOL EXAMINER) Narrative Yoly Yates, DO - 04/07/2018 1:58 PM SCHOOL EXAMINER Sixto Thomas, AUDIT CLERK-SCCM ADMINISTRATOR 04/07/2018 1:10 PM Endotracheal Tube Placement: Patient Location: OR. Procedure: intubation ([id number]). Procedure Section: Sedation: IV sedation. Indications for Airway Management: airway protection Pretreatment: 100% O2. Induction: standard IV Patient Position: sniffing Mask Ventilation: easy. Blade Type: Susan Blade Size: 4 Laryngoscopy View: grade 1 (full cords) Intubation Adjuncts: stylet Device: endotracheal tube Placement: oral Tube type: cuff - inflated Tube Size (MM): 8 Depth of Insertion (CM): 23 Measured From: teeth Cuff Inflated With: air Number of Attempts: 1. Placement Verified By: direct visualization, bilateral breath sounds and CO2 monitor Tube secured with: adhesive tape. Staff Section Anesthesia Provider: YOLY YATES, Performed the procedure Yoly Yates DO GENERAL ANESTHESIA O RDERABLES * POTASSIUM BLOOD (04/07/2018 10:08 AM SCHOOL EXAMINER) Potassium 4.0 3.5 - 5.1 mmol/L 04/07/2018 10:46 AM SCHOOL EXAMINER [facility] Blood BLOOD SPECIMEN / Unknown Venipuncture / Unknown 04/07/2018 10:08 AM SCHOOL EXAMINER 04/07/2018 10:27 AM SCHOOL EXAMINER Tawana Mack DO LAB - CHEMISTRY BASSEM ALCALA Performing Organization Address [facility] Co de Phone Number [facility] [address] [place] [phone] * EKG 12-LEAD (03/03/2018 10:21 AM SCHOOL EXAMINER) Ventricular Rate 73 BPM [facility] Atrial Rate 73 BPM [facility] P-R Interval 184 ms [facility] QRS Duration ms 114 ms [facility] Q-T Interval ms 396 ms [facility] QTC Calculation (Bezet) 436 ms [facility] Calculated P Morral 9 degrees [facility] Calculated R Morral -67 degrees [facility] Calculated T Morral 29 degrees [facility] Interpretation EKG Normal sinus rhythm Left axis deviation Inferior infarct , age undetermined Abnormal ECG No previous ECGs available Confirmed by PRASHANTH SINCLAIR, NENO ([id number]) on 03/03/2018 1:26:52 PM [facility] 03/03/2018 10:2 1 AM SCHOOL EXAMINER 03/03/2018 1:26 PM SCHOOL EXAMINER Guillaume Hardin MD ECG ORDERABLES Performing Organization Address City/[facility] Co de Phone Number [facility] * FL UGI W AIR CONTRAST W KUB (01/19/2018 11:10 AM SCHOOL EXAMINER) Anatomical Region Laterality Modality Abdomen Radiographic Jessenia ging 01/19/2018 2:55 PM SCHOOL EXAMINER Narrative 01/19/2018 2:56 PM SCHOOL EXAMINER Double contrast upper GI Indication for examination: Morbid obesity. Preoperative evaluation for bariatric surgery. Examination esophagus reveals grossly normal motility and a normal mucosal pattern. No reflux was identified. No inflammatory change, stricture or diverticulum was observed during the study. Stomach is normal in size and appearance. No hernia is identified. No mucosal abnormality is appreciated. Duodenal bulb and sweep are intact. Fluoroscopy time 36 seconds. 10 radiographic images were obtained. CONCLUSION: Unremarkable upper GI series as described. Reading Radiologist: Isac Castellanos MD on 01/19/2018 at 2:56 PM Procedure Note Isac Castellanos MD - 01/19/2018 Double contrast upper GI Indication for examination: Morbid obesity. Preoperative evaluation for bariatric surgery. Examination esophagus reveals grossly normal motility and a normal mucosal pattern. No reflux was identified. No inflammatory change, stricture or diverticulum was observed during the study. Stomach is normal in size and appearance. No hernia is identified. No mucosal abnormality is appreciated. Duodenal bulb and sweep are intact. Fluoroscopy time 36 seconds. 10 radiographic images were obtained. CONCLUSION: Unremarkable upper GI series as described. Reading Radiologist: Isac Castellanos MD on 01/19/2018 at 2:56 PM Guillaume Hardin MD FLUOROSCOPY ORDERABL ES Care Teams Estimator Project Manager Relationship Specialty Start Date End Date Pauline Melgar MD [address] [place] [address] PCP - General Family Medicine 12/03/22
--- OUTSIDE RECORDS SUMMARY | 2024-05-10 13:21 | XMS_ITS | Referral Summary ---
Author Organization [facility] Address [address] [place] [address] Care Team Providers Care Safety Specialist Name Role Phone Pauline Melgar MD Primary Care Provider + Source Comments [facility],non-owned Affiliates and Associated Physician Practices is amultiple site organization consisting of ambulatory clinics and hospital sitesin [place], [place], [place] and [place]. This disclosure is being madepursuant to the Care Everywhere program and may not contain all information available regarding this patient. Last updated 17.[facility] Encounters Date Type Department Care Team Description 02/10/2024 Travel 02/10/2024 8:00 AM STATISTICAL CLERK Office Visit [facility] - ENT [address] [place] [phone] George Traore MD S/P FESS (functional endoscopic sinus surgery) (Primary Dx); S/P tympanoplasty; Mixed conductive and sensorineural hearing loss of left ear, unspecified hearing status on contralateral side; Chronic pansinusitis; 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 ear; Perforation of left tympanic membrane; Left chronic serous otitis media from Last 3 Months Allergies Active Allergy Reactions Criticality Noted Date [...] Active azelastine (Astelin) 0.1 % nasal spray [place] 1 (one) spray into the nose once daily 09/26/2022 Active fluticasone propionate (Flonase) 50 MCG/ACT nasal spray [place] 1 (one) spray into each nostril once [...] 01/02/2022 03/11/2023 S/P gastric bypass 04/07/2018 Immunizations Name Administration Dates Next Due INFLUENZA [...] Comments Blood Pressure 150/74 02/10/2024 7:51 AM STATISTICAL CLERK Pulse 61 02/10/2024 7:51 AM STATISTICAL CLERK Temperature 36.6 C (97.8 F) 03/12/2023 1:11 PM STATISTICAL CLERK Respiratory Rate 14 03/12/2023 1:34 PM STATISTICAL CLERK Oxygen Saturation 93% 03/12/2023 1:34 PM STATISTICAL CLERK Inhaled Oxygen Concentration - - Weight 131.4 kg (289 lb 9.6 oz) 02/10/2024 7:51 AM STATISTICAL CLERK Height 182.9 cm (6') 02/10/2024 7:51 AM STATISTICAL CLERK Body Mass Index 39.28 02/10/2024 7:51 AM STATISTICAL CLERK Functional Status Functional Status Response Date of Assess ment Is person deaf or have serious hearing difficult y? No 04/07/2018 Is person blind or have serious difficulty seein g? No 04/07/2018 Does person have serious dif ficulty walking/climbing stairs? No 04/07/2018 Does person have difficulty dressing/bathing? No 04/07/2018 Does person have difficulty doing errands alone? No 04/07/2018 Cognitive Status Response Date of Assessm ent Does person have difficulty concentrating/remembering/making decisions? No 04/07/2018 Plan of Treatment Upcoming Encounters Date Type Department Care Team (Late st Contact Info) Description 08/10/2024 8:00 AM CDT Testing Visit [facility] - ENT [address] [place] [phone] John PaulIsela gravesCici [address] [facility] [address] [place] [address] 08/10/2024 8:30 AM CDT Office Visit [facility] - ENT [address] [place] [phone] George Traore MD [address] DEPT [place] [address] Procedures Procedure Name Priority Date/Time Associated Diagnosis Comments [place] NASAL ENDOSCOPY,DX Routine 02/10/2024 8:41 AM STATISTICAL CLERK S/P FESS (functional endoscopic sinus surgery) S/P tympanoplasty Mixed conductive and sensorineural hearing loss of left ear, unspecified hearing status on contralateral side Chronic pansinusitis 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 ear Perforation of left tympanic membrane Left chronic serous otitis media COMPREHENSIVE METABOLIC PANEL Routine 05/17/2019 8:50 AM STATISTICAL CLERK Bariatric surgery status Vitamin deficiency Mineral deficiency Vitamin D deficiency Intestinal malabsorption, unspecified type (HCC) from Last 3 Months or Most Recently Relevant to Health Maintenance Results * TX NASAL ENDOSCOPY,DX (02/10/2024 8:41 AM STATISTICAL CLERK) Narrative George Traore MD - 02/10/2024 8:41 AM STATISTICAL CLERK George Traore MD 02/10/2024 8:44 AM Procedure [...] (ABNORMAL) COMPREHENSIVE METABOLIC PANEL (05/17/2019 8:50 AM STATISTICAL CLERK) Glucose 94 65 - 99 mg/dL [facility] Comment: Fasting reference interval BUN 14 7 - 25 mg/dL [facility] Creatinine 0.85 0.70 - 1.33 mg/dL [facility] Comment: For patients >49 years of age, the reference limit for Creatinine is approximately 13% higher for people identified as -Somali. eGFR by MDRD 99 > OR = [...] 46 U/L [facility] Comment: Test Performed at: [facility] [place] [address] [address] CITLALI WINCHESTER DO,MPH Blood BLOOD SPECIMEN / Unknown 05/17/2019 8:50 AM STATISTICAL CLERK 05/17/2019 8:54 AM STATISTICAL CLERK Juanienoc Kennedy Quirino LEDGER CLERK-WIRE PREPARATION WORKER LAB - [place] ORDERABLES [facility] [address] [place] [address] from Last 3 Months or Most Recently Relevant to Health Maintenance Advance Directives * Full Code (Latest Code Status on File) Date Activated Date Inactivated Comments 04/07/2018 8:34 PM 04/08/2018 3:21 PM Care Teams Safety Specialist Relationship Specialty Start Date End Date Pauline Melgar MD [address] [place] [address] PCP - General Family Medicine 12/03/22
--- OUTSIDE RECORDS SUMMARY | 2024-05-10 13:21 | XMS_ITS | Referral Summary ---
Author Organization [facility] [address] Address [address] [place] [address] Care Team Providers Care Wire Splicer Name Role Phone Pauline Melgar MD Primary Care Provider Allergies No known active allergies Social History Tobacco Use Types Packs/Day Years Used Date Smoking Tobacco: Never Assessed Personal Safety Answer Date Recorded Getting School Help Needed Not on file 05/30 Sex and Gender Information Value Date Recorded Sex Assigned at Not on file Legal Sex Male 4:53 AM BSW Gender Identity Not on file Sexual Orientation Not on file Plan of Treatment Not on file Insurance Care Teams Wire Splicer Relationship Specialty Start Date End Date Pauline Melgar MD [address] [facility] [address] [place] [address] PCP - General Family Medicine 09/10/18
--- OUTSIDE RECORDS SUMMARY | 2024-05-10 13:21 | XMS_ITS | CONTINUITY OF CARE DOCUMENT ---
Author Name eddi montague Address Unknown Organization [facility] Address [address] [place] [address] [address] [place] [address] Phone [phone] Care Team Providers Care Diagnostic Imaging Manager Name Role Phone eddi montague Unavailable Unavailable
[2024-05-10 13:35] LABS: Influenza A QL RT-PCR Negative (Negative); Influenza B QL RT-PCR Negative (Negative); RSV RNA, RT-PCR Negative (Negative); SARS-CoV-2 RNA PCR Negative (Negative)
== END 2024-05-10 11:26 | disposition home or self-care (01) ==
LOC: ANHLAB 11:26
PROVIDERS: PCP Family Medicine; Visit Provider Student in an Organized Health Care Education/Training Program
DX: R05.9 Cough, unspecified (principal); Z20.822 Contact with and (suspected) exposure to COVID-19
CPT/HCPCS: 87637

== ENCOUNTER 2024-10-30 07:16 | Outpatient (CLI) | payer BC, OTHER, SELFPAY ==
--- OUTSIDE RECORDS SUMMARY | 2024-10-30 07:19 | XMS_ITS | Clinical Summary ---
Author Organization [facility] [address] Address [address] [place] [address] Care Team Providers Care Tea Plantation Worker Name Role Phone Pauline Melgar MD Primary Care Provider Allergies No known active allergies Social History Tobacco Use Types Packs/Day Years Used Date Smoking Tobacco: Never Assessed Personal Safety Answer Date Recorded Getting School Help Needed Not on file 05/30 Sex and Gender Information Value Date Recorded Sex Assigned at Not on file Legal Sex Male 4:53 AM POTATO LOADER Gender Identity Not on file Sexual Orientation Not on file Plan of Treatment Not on file Insurance Care Teams Tea Plantation Worker Relationship Specialty Start Date End Date Pauline Melgar MD [address] [facility] [address] [place] [address] PCP - General Family Medicine 09/10/18
--- OUTSIDE RECORDS SUMMARY | 2024-10-30 07:19 | XMS_ITS | Clinical Summary ---
Author Organization [facility] Address [address] [place] [address] Care Team Providers Care Assembler Erector Name Role Phone Pauline Melgar MD Primary Care Provider + Source Comments [facility],non-owned Affiliates and Associated Physician Practices is amultiple site organization consisting of ambulatory clinics and hospital sitesin [place], [place], [place] and [place]. This disclosure is being madepursuant to the Care Everywhere program and may not contain all information available regarding this patient. Last updated 17.[facility] Allergies Active Allergy Reactions Criticality Noted Date Comments Ibuprofen Other 01/02/2022 Can not take due to gastric bypass Nsaids Dizziness 01/02/2022 Can not take due to gastric bypass Medications * Be aware that medications may not be up to date on this document. Alwaysverify current medications with the patient. atorvastatin (LIPITOR) 10 MG tablet Take 1 (one) tablet by mouth at bedtime 0 8 Active omeprazole (PRILOSEC) 20 MG capsule Take 1 (one) capsule by mouth once daily 30 capsule 5 1 Active FLUoxetine (PROzac) 40 MG capsule 3 Active ondansetron, disintegrating, (Zofran ODT) 4 MG tablet Take 1 (one) tablet by mouth once 3 Active tadalafil (Cialis) 5 MG tablet Take 1 (one) tablet by mouth once daily as needed 1 Active loratadine (Claritin) 10 MG tablet Take 1 (one) tablet by mouth once daily 30 tablet 3 3 Active aspirin EC (Ecotrin) 81 MG tablet Take 1 (one) tablet by mouth once daily 3 Active azelastine (Astelin) 0.1 % nasal spray [place] 1 (one) spray into the nose once daily 3 Active fluticasone propionate (Flonase) 50 MCG/ACT nasal spray [place] 1 (one) spray into each nostril once daily 3 Active ciprofloxacin-d exAMETHasone (Ciprodex) 0.3-0.1 % otic suspension Instill 4 (four) drops into left ear 2 times daily for 5 days Shake well before using. 3 Active Additional Information Patient not taking.Reported on 08/10/2024 albuterol HFA (Proventil; Ventolin; Proair) 108 (90 Base) MCG/ACT inhaler Inhale 2 (two) puffs by mouth as directed 4 Active sulfamethoxazol e-trimethoprim (Bactrim DS; Septra DS) 800-160 MG tablet Take 1 (one) tablet by mouth as directed 4 Active tamsulosin (Flomax) 0.4 MG capsule Take 1 (one) capsule by mouth once daily 4 Active tiZANidine (Zanaflex) 2 MG tablet Take 1 (one) tablet by mouth as needed for Muscle Spasms 4 Active amLODIPine (Norvasc) 5 MG tablet Take 1 (one) tablet by mouth once daily 4 Active lisinopril (Prinivil; Zestril) 10 MG tablet Take 1 (one) tablet by mouth once daily 4 Active amoxicillin-cla vulanate (Augmentin) 875-125 MG tablet Take 1 (one) tablet by mouth 2 times daily with morning and evening meal 20 tablet 4 Active Additional Information Patient not taking.Reported on 08/10/2024 Active Problems Problem Noted Date Diagnosed Date S/P FESS (functional endoscopic sinus surgery) 0 03/18/2023 S/P tympanoplasty 03/18/2023 PVD (peripheral vascular disease) 01/02/2023 03/11/2023 Tobacco abuse 01/02/2023 03/11/2023 Benign essential HTN 01/02/2022 03/11/2023 S/P gastric bypass 04/07/2018 Encounters Date Type Department Care Team Description 08/10/2024 8:30 AM CDT Office Visit [facility] - ENT [address] [place] [phone] George Traore MD S/P FESS (functional endoscopic sinus surgery) (Primary Dx); S/P tympanoplasty; Mixed conductive and sensorineural hearing loss of left ear, unspecified hearing status on contralateral side 08/10/2024 8:00 AM CDT Testing Visit [facility] - ENT [address] [place] [phone] Isela Last AuD Sensorineural hearing loss (SNHL) of both ears 08/10/2024 Travel from Last 3 Months Immunizations Immunization Administration Dates Next Due INFLUENZA VACCINE, QUADR. (F LUZONE; FLULAVAL; FLUARIX; AFLURIA QUADRIVALENT; 6MO+), 0.5 ML (IIV4) 12/23/2018 TDAP (7yrs+) 02/21/2010 Social History Tobacco Use Types Packs/Day Years Used Date Smoking Tobacco: Every Day Cigarettes 0.5 6.8 Started: 01/01/2018 Smokeless Tobacco: Never Tobacco Cessation:Ready to Q uit: Not Asked; Counseling Given: Not Answered Alcohol Use Standard Drinks/Week Comments Not Currently 0 (1 standard drink = 0.6 oz pur e alcohol) occ Sex and Gender Information Value Date Recorded Sex Assigned at Not on file Legal Sex Male 9:42 AM CDT Gender Identity Not on file Sexual Orientation Not on file Last Filed Vital Signs Vital Sign Reading Time Taken Comments Blood Pressure 157/90 08/10/2024 8:29 AM CDT Pulse 65 08/10/2024 8:29 AM CDT Temperature 36.6 C (97.8 F) 03/12/2023 1:11 PM SAP ARCHITECT Respiratory Rate 14 03/12/2023 1:34 PM SAP ARCHITECT Oxygen Saturation 93% 03/12/2023 1:34 PM SAP ARCHITECT Inhaled Oxygen Concentration - - Weight 136.1 kg (300 lb) 08/10/2024 8:29 AM CDT Height 182.9 cm (6') 08/10/2024 8:29 AM CDT Body Mass Index 40.69 08/10/2024 8:29 AM CDT Plan of Treatment Upcoming Encounters Date Type Department Care Team (Late st Contact Info) Description 08/09/2025 8:00 AM CDT Testing Visit [facility] - ENT [address] [place] [address], [place] [phone] Isela Last AuD [address] [place] [address] [address] [place] [address] 08/09/2025 8:30 AM CDT Office Visit [facility] - ENT [address] [place] [phone] George Traore MD [address] [place] [address] [place] [address] Health Maintenance Due Date Last Done Comments [...] 50+ (1 of 2 - PCV) 1984 ZOSTER VACCINE (1 of 2) 11/13/2015 DTAP/TDAP/TD VACCINES (2 - Td or Tdap) 02/22/2020 02/21/2010 SCREENING FOR DIABETES 12/03/2022 0, 01/26/2019, 04/08/2018, Additional history exists COVID-19 VACCINE (1 - season) 2023 DEPRESSION SCREENING 03/17/2024 INFLUENZA VACCINE (#1) 2024 12/23/2018 HIB VACCINE Aged Out No longer eligi ble based on patient's age to complete this topic HPV VACCINE Aged Out No longer eligi ble based on patient's age to complete this topic MENINGOCOCCAL (Group B) VACCINE SHARED DECISION-MAKING Aged Out No longer eligible based on patient's age to complete this topic MENINGOCOCCAL GROUPS A/C/Y/W VACCINE Aged Out No longer eligible based on patient's age to complete this topic Procedures Procedure Name Priority Date/Time Associated Diagnosis Comments AUDIOLOGY/TYMPANOMETRY ORDER Routine 08/10/2024 8:20 AM CDT COMPREHENSIVE METABOLIC PANEL Routine 05/17/2019 8:50 AM SAP ARCHITECT Bariatric surgery status Vitamin deficiency Mineral deficiency Vitamin D deficiency Intestinal malabsorption, unspecified type from Last 3 Months or Most Recently Relevant to Health Maintenance Results * AUDIOLOGY/TYMPANOMETRY ORDER (08/10/2024 8:20 AM CDT) Isela Martinez, AuD - 08/10/2024 8:20 AM CDT History: Vikram Seals arrived for a hearing evaluation. 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 He is unsure of changes in hearing. There is a past history of surgery on the left ear. He denies tinnitus or dizziness. Results: Puretone air/bone conduction testing revealed a normal sloping to mild SN hearing loss in the right ear and a normal sloping to moderately severe SN hearing loss in the left ear (conductive component at 4kHz). Speech understanding was excellent in the right ear and excellent in the left ear. When compared to the previous hearing test, today's results do indicate a decrease in hearing. Immittance measures revealed a Type A tympanogram in the right ear, indicating normal middle ear function. Results for the left ear revealed a Type A tympanogram, indicating normal middle ear function in that ear. These results were discussed in detail with the patient and all pertinent questions were answered. Recommendations: 1) ENT consult. 2) Re check per medical recommendation, annually, or if a change in hearing is suspected. 3) Hearing protection in noise. 4) Trial with amplification pending interest/medical clearance. Cici Weeks. [facility] Clinical [place] [facility]-Department of Otolaryngology/Audiology [facility] [address] [facility] ([facility] [place] [address] Isela Bolanos AUDIOLOGY SERVICES ORDERABLES F inal Result * (ABNORMAL) COMPREHENSIVE METABOLIC PANEL (05/17/2019 8:50 AM SAP ARCHITECT) Glucose 94 65 - 99 mg/dL [facility] Comment: Fasting reference interval BUN 14 7 - 25 mg/dL [facility] Creatinine 0.85 0.70 - 1.33 mg/dL [facility] Comment: For patients >49 years of age, the reference limit for Creatinine is approximately 13% higher for people identified as -Gabonese. eGFR by MDRD 99 > OR = [...] 46 U/L [facility] Comment: Test Performed at: [facility] [address] [place] [address] CITLALI WINCHESTER DO,MPH Blood BLOOD SPECIMEN / Unknown 05/17/2019 8:50 AM SAP ARCHITECT 05/17/2019 8:54 AM SAP ARCHITECT Juani Lackeye Quirino VARIETY SAW OPERATOR-PRESENTATION MANAGER LAB - CHEMISTRY O RDERABLES Final Result [facility] [id number] [place] [address] from Last 3 Months or Most Recently Relevant to Health Maintenance Insurance ANTHEM [employer] Advance Directives * Full Code (Latest Code Status on File) Date Activated Date Inactivated Comments 04/07/2018 8:34 PM 04/08/2018 3:21 PM Care Teams Assembler Erector Relationship Specialty Start Date End Date Pauline Melgar MD [address] [place] [address] PCP - General Family Medicine 12/03/22
--- OUTSIDE RECORDS SUMMARY | 2024-10-30 07:20 | XMS_ITS | Clinical Summary ---
Author Organization [facility] Address [address] [place] [address] Phone Care Team Providers Care Backshoe Person Name Role Phone Pauline Melgar MD Primary Care Provider +1- [phone] Allergies Active Allergy Reactions Criticality Noted Date [...] (ASTELIN) 137 mcg/actuation nasal spray Administer 1 [place] in each nostril daily. 3 Active fluticasone propionate (FLONASE) 50 mcg/spray [place], Suspension nasal inhaler 3 Active ondansetron (ZOFRAN [...] Care - Dr. Glen Tony MD, FAC, [facility] - [address] [facility] Will Graves D.P.M. FACFAS [facility] [...] on file Legal Sex Male 5:58 AM BRIDGE ENGINEER Gender Identity Not on file Sexual Orientation Not on file Last Filed Vital Signs Vital Sign Reading Time Taken Comments Blood Pressure 124/66 01/02/2023 7:59 AM CDT Pulse 57 01/02/2023 7:59 AM CDT Temperature 36.9 C (98.4 F) 02/21/2010 1:30 PM BRIDGE ENGINEER Respiratory Rate 18 02/21/2010 1:30 PM BRIDGE ENGINEER Oxygen Saturation 98% 01/02/2023 7:59 AM CDT [...] Td or Tdap) 02/22/2020 INFLUENZA VACCINE (#1) 2024 Insurance ALLEGIANCE OPEN ACCESS [facility] BLUE ACCESS/TRUE BLUE PPO Care Teams Backshoe Person Relationship Specialty Start Date End Date Pauline Melgar MD PCP - General Family Practice 01/01/22
[2024-10-30 07:45] LABS: Hematocrit 43.1 % (42.0-52.0); Hemoglobin 13.9 g/dL (14.0-18.0); Immature Granulocyte Percent A 0.3 % (0-0.5); Lymphocytes Absolute Auto 2.32 K/mm3 (0.9-3.2); Mean Corpuscular HGB Conc 32.3 g/dl (32-36); Mean Corpuscular Hemoglobin 30.6 pg (26-34); Mean Corpuscular Volume 94.9 fl (80-100); Nucleated Red Blood Cells Absolute Auto 0.000 K/mm3 (0.0-0.012); Nucleated Red Blood Cells Perc 0.0 % (0.0-0.2); Platelet Count Result 181 k/mm3 (150-375); Red Blood Count 4.54 M/mm3 (4.6-6.20); White Blood Count 9.6 K/mm3 (4.5-10.0)
[2024-10-30 08:14] LABS: Alanine Aminotransferase 25 U/L (6-50); Albumin Level 4.2 g/dL (3.5-5.1); Alkaline Phosphatase 85 U/L (38-126); Anion Gap 8 mmol/L (4-12); Aspartate Amino Transferase 42 U/L (17-59); Bilirubin,Total 0.8 mg/dL (0.2-1.3); Blood Urea Nitrogen 16 mg/dL (9-20); Calcium 9.2 mg/dL (8.4-10.2); Carbon Dioxide 25 mmol/L (22-30); Chloride 105 mmol/L (98-107); Cholesterol 111 mg/dL (0-200); Estimated Glomerular Filt Rate > 60; Glucose 109 mg/dL (65-110); HDL Direct 27 mg/dL; Potassium 4.2 mmol/L (3.4-5.0); Sodium 138 mmol/L (137-145); Total Protein 7.0 g/dL (6.3-8.2); Triglycerides 112 mg/dL (<150)
[2024-10-30 08:37] LABS: Thyroid Stimulating Hormone Reflex 1.800 uIU/mL (0.465-4.68)
[2024-10-30 08:41] LABS: Hemoglobin A1C 6.0 % (<5.7)
[2024-11-01 13:18] LABS: MALB Creatinine Ratio 6.3 mg/g (0-30)
== END 2024-10-30 07:17 | disposition home or self-care (01) ==
LOC: ANHLAB 07:17
PROVIDERS: PCP Family Medicine
DX: E11.51 Type 2 diabetes mellitus with diabetic peripheral angiopathy without gangrene (principal); I10 Essential (primary) hypertension; E66.01 Morbid (severe) obesity due to excess calories; Z87.19 Personal history of other diseases of the digestive system; D64.9 Anemia, unspecified; Z72.0 Tobacco use
CPT/HCPCS: 36415; 80053; 80061; 82043; 83036; 84443; 85025

== ENCOUNTER 2025-02-20 14:20 | Emergency (ER) | payer BC, OTHER, SELFPAY ==
[2025-02-20] VITALS (18 sets, daily range): BP systolic 131–162; BP diastolic 72–95; PULSE 77; RESP 20; TEMP 37.1; O2SAT 94–100
--- NOTE | ~2025-02-20 | CT_ITS ---
EXAMINATION: CT abdomen pelvis wo con, 02/20/2025 14:40 CHANCELLOR HISTORY: R flank pain COMPARISON: No comparisons available. TECHNIQUE: CT scan of the abdomen and pelvis was performed without IV contrast. One or more of the following dose reduction techniques were used: automated exposure control, adjustment of the mA and/or kV according to patient size, use of iterative reconstruction technique. Unless otherwise stated, incidental findings do not require dedicated follow up imaging FINDINGS: CT abdomen: LUNG BASES: The lung bases are clear. The visualized portions of the heart and pericardium are unremarkable. LIVER: Unremarkable, liver contours intact, no lesions. SPLEEN: Unremarkable, no splenomegaly. KIDNEYS: Right Kidney: Right kidney there is mild hydronephrosis and hydroureter due to an obstructing distal ureteral calculus measuring 2 x 2 x 2 mm. Left Kidney: Left kidney there are renal calculi noted the largest mid pole 3 mm with simple appearing renal cyst 1.5 x 1.5 cm, no hydronephrosis. ADRENAL GLANDS: Unremarkable. PANCREAS: Unremarkable. GALLBLADDER/BILIARY: Unremarkable. No biliary dilatation. STOMACH AND ESOPHAGUS: Postsurgical changes noted in the stomach. BOWEL/MESENTERY: Moderate fecal content, no colitis or diverticulitis. The appendix is not identified. There is no stranding within the mesentery. There are no thickened or dilated loops of small bowel. Postsurgical changes are noted in the small bowel. ADENOPATHY/RETROPERITONEUM: No lymphadenopathy. AORTA/VASCULATURE: Normal caliber aorta. FREE FLUID OR FREE AIR: None. CT pelvis: SOLID ORGANS/REPRODUCTIVE: Unremarkable. BLADDER: Within normal limits. OSSEOUS STRUCTURES: No acute osseous abnormality.No suspicious lesions. OVERLYING SOFT TISSUES: Unremarkable. IMPRESSION: Right-sided obstructive uropathy Reviewed, dictated and finalized at location [facility]
--- OUTSIDE RECORDS SUMMARY | 2025-02-20 14:44 | XMS_ITS | Clinical Summary ---
Author Organization [facility] Address [address] [place] [address] Care Team Providers Care Coremaker Apprentice Name Role Phone Pauline Melgar MD Primary Care Provider + Source Comments [facility],non-owned Affiliates and Associated Physician Practices is amultiple site organization consisting of ambulatory clinics and hospital sitesin [place], [place], [place] and [place]. This disclosure is being madepursuant to the Care Everywhere program and may not contain all information available regarding this patient. Last updated 17.[facility] Allergies Active Allergy Reactions Criticality Noted Date [...] Active azelastine (Astelin) 0.1 % nasal spray [place] 1 (one) spray into the nose once daily 3 Active fluticasone propionate (Flonase) 50 MCG/ACT nasal spray [place] 1 (one) spray into each nostril once [...] 01/02/2022 03/11/2023 S/P gastric bypass 04/07/2018 Immunizations Immunization Administration Dates Next Due INFLUENZA VACCINE, QUADR. (F LUZONE; FLULAVAL; FLUARIX; AFLURIA QUADRIVALENT; 6MO+), 0.5 ML (IIV4) 12/23/2018 TDAP (7yrs+) 02/21/2010 Social History Tobacco Use Types Packs/Day Years Used Date Smoking Tobacco: Every Day Cigarettes 0.5 7.1 Started: 01/01/2018 Smokeless Tobacco: Never Tobacco Cessation:Ready [...] 36.6 C (97.8 F) 03/12/2023 1:11 PM HOT SAW OPERATOR Respiratory Rate 14 03/12/2023 1:34 PM HOT SAW OPERATOR Oxygen Saturation 93% 03/12/2023 1:34 PM HOT SAW OPERATOR Inhaled Oxygen Concentration - - Weight 136.1 kg (300 lb) 08/10/2024 8:29 AM CDT Height 182.9 cm (6') 08/10/2024 8:29 AM CDT Body Mass Index 40.69 08/10/2024 8:29 AM CDT Plan of Treatment Upcoming Encounters Date Type Department Care Team (Late st Contact Info) Description 08/09/2025 8:00 AM CDT Testing Visit [facility] - ENT [address] [place] [address] Isela Last, Cici [address] [facility] [address] [place] [address] 08/09/2025 8:30 AM CDT Office Visit [facility] - ENT [address] [place] [address], [place] [address] George Traore MD [address] [place] [address] [address] [place] [address] Health Maintenance Due Date Last Done Comments [...] 12/03/2022 0, 01/26/2019, 04/08/2018, Additional history exists DEPRESSION SCREENING 03/17/2024 COVID-19 VACCINE ( season) 2024 INFLUENZA VACCINE (#1) 2024 12/23/2018 HIB VACCINE [...] Procedure Name Priority Date/Time Associated Diagnosis Comments COMPREHENSIVE METABOLIC PANEL Routine 05/17/2019 8:50 AM HOT SAW OPERATOR Bariatric surgery status Vitamin deficiency Mineral deficiency Vitamin D deficiency Intestinal malabsorption, unspecified type from Last 3 Months or Most Recently Relevant to Health Maintenance Results * (ABNORMAL) COMPREHENSIVE METABOLIC PANEL (05/17/2019 8:50 AM HOT SAW OPERATOR) Glucose 94 65 - 99 mg/dL [facility] Comment: Fasting reference interval BUN 14 7 - 25 mg/dL [facility] Creatinine 0.85 0.70 - 1.33 mg/dL [facility] Comment: For patients >49 years of age, the reference limit for Creatinine is approximately 13% higher for people identified as -[place]guillan. eGFR by MDRD 99 > OR = [...] 46 U/L [facility] Comment: Test Performed at: [facility] [place] [address] CITLALI WINCHESTER DO,MPH Blood BLOOD SPECIMEN / Unknown 05/17/2019 8:50 AM HOT SAW OPERATOR 05/17/2019 8:54 AM HOT SAW OPERATOR Juani Win REMOTE SENSING TECHNOLOGIST-TRANSMISSION OPERATOR LAB - CHEMISTRY O RDERABLES Final Result [facility] [id number] [place] [address] from Last 3 Months or Most Recently Relevant to Health Maintenance Insurance ANTHEM [employer] Advance Directives * Full Code (Latest Code Status on File) Date Activated Date Inactivated Comments 04/07/2018 8:34 PM 04/08/2018 3:21 PM Care Teams Coremaker Apprentice Relationship Specialty Start Date End Date Pauline Melgar MD [address] [place] [address] PCP - General Family Medicine 12/03/22
--- OUTSIDE RECORDS SUMMARY | 2025-02-20 14:44 | XMS_ITS | Clinical Summary ---
Author Organization [facility] Address [address] [place] [address] Phone Care Team Providers Care Senior Marketing Analyst Name Role Phone Pauline Melgar MD Primary Care Provider +1- [phone] Allergies Active Allergy Reactions Criticality Noted Date [...] (ASTELIN) 137 mcg/actuation nasal spray Administer 1 [place] in each nostril daily. 3 Active fluticasone propionate (FLONASE) 50 mcg/spray [place], Suspension nasal inhaler 3 Active ondansetron (ZOFRAN [...] Vascular Care - Dr. Glen Tony MD, FACC, [facility] - [address] [facility] Will Graves D.P.M. FACFAS The [...] on file Legal Sex Male 5:58 AM MOTEL KEEPER Gender Identity Not on file Sexual Orientation Not on file Last Filed Vital Signs Vital Sign Reading Time Taken Comments Blood Pressure 124/66 01/02/2023 7:59 AM CDT Pulse 57 01/02/2023 7:59 AM CDT Temperature 36.9 C (98.4 F) 02/21/2010 1:30 PM MOTEL KEEPER Respiratory Rate 18 02/21/2010 1:30 PM MOTEL KEEPER Oxygen Saturation 98% 01/02/2023 7:59 AM CDT [...] VACCINE (#1) 2024 Insurance ALLEGIANCE OPEN ACCESS [facility] BLUE ACCESS/TRUE BLUE PPO Care Teams Senior Marketing Analyst Relationship Specialty Start Date End Date Pauline Melgar MD PCP - General Family Practice 01/01/22
--- OUTSIDE RECORDS SUMMARY | 2025-02-20 14:44 | XMS_ITS | Clinical Summary ---
Author Organization [facility] [address] Address [address] [place] [address] Care Team Providers Care Book Salesman Name Role Phone Pauline Melgar MD Primary Care Provider Allergies No known active allergies Social History Tobacco Use Types Packs/Day Years Used Date Smoking Tobacco: Never Assessed Personal Safety Answer Date Recorded Getting School Help Needed Not on file 05/30 Sex and Gender Information Value Date Recorded Sex Assigned at Not on file Legal Sex Male 4:53 AM [employer]MENT [employer] Gender Identity Not on file Sexual Orientation Not on file Plan of Treatment Not on file Insurance Care Teams Book Salesman Relationship Specialty Start Date End Date Pauline Melgar MD [address] [facility] [address] [place] [address] PCP - General Family Medicine 09/10/18
[2025-02-20 14:51] LABS: Add Urine Microscopic? YES; Appearance Urine Clear (Clear); Glucose Urine UA Negative (Negative); Leukocyte Esterase Ur Trace LEU/UL (Negative); Nitrate Urine Negative (Negative); Non Pathogenic Casts 0-2; Specific Grav Ur 1.034 (1.001-1.035)
[2025-02-20] MEDS: MORPHINE SULFATE (*CRX) 4 MG/ML INJ IV PUSH (15:10)
[2025-02-20] MEDS: ONDANSETRON INJ 4 MG/2 ML VIAL IV PUSH (15:10)
[2025-02-20] MEDS: LACTATED RINGERS 1,000 ML 999 ML IV CONT (15:21)
[2025-02-20 15:29] LABS: Hematocrit 41.8 % (42.0-52.0); Hemoglobin 13.7 g/dL (14.0-18.0); Immature Granulocyte Percent A 0.4 % (0-0.5); Lymphocytes Absolute Auto 1.77 K/mm3 (0.9-3.2); Mean Corpuscular HGB Conc 32.8 g/dl (32-36); Mean Corpuscular Hemoglobin 30.3 pg (26-34); Mean Corpuscular Volume 92.5 fl (80-100); Nucleated Red Blood Cells Absolute Auto 0.000 K/mm3 (0.0-0.012); Nucleated Red Blood Cells Perc 0.0 % (0.0-0.2); Platelet Count Result 183 k/mm3 (150-375); Red Blood Count 4.52 M/mm3 (4.6-6.20); White Blood Count 10.4 K/mm3 (4.5-10.0)
[2025-02-20 15:38] LABS: Anion Gap 6 mmol/L (4-12); Blood Urea Nitrogen 16 mg/dL (9-20); Calcium 9.2 mg/dL (8.4-10.2); Carbon Dioxide 26 mmol/L (22-30); Chloride 104 mmol/L (98-107); Estimated CRCL calculation 88 ml/min; Estimated Glomerular Filt Rate > 60; Glucose 132 mg/dL (65-110); Potassium 4.1 mmol/L (3.4-5.0); Sodium 136 mmol/L (137-145)
--- NOTE | 2025-02-20 16:18 | ED_ITS ---
HPI - Male Genitourinary General Chief complaint: Urogenital-Male Stated complaint: kidney stones Time Seen by Provider: 02/20/25 14:27 History of Present Illness HPI Narrative: The patient presenting with right flank pain, ongoing for last few days, has had bad nights and days but overall currently does severe pain. Some slight nausea associated, feels like kidney stones Related Data Home Medications ?Medication ?Instructions ?Recorded ?Confirmed ?Last Taken ?Type fluticasone propionate 50 1 spray intranasal Q6-8H PRN 08/22/23 11/02/24 Unknown History mcg/actuation nasal Allergy Symptoms spray,suspension Allergies Allergy/AdvReac Type Severity Reaction Status Date / Time NSAIDS (Non-Steroidal AdvReac Mild UNABLE TO Verified 02/20/25 14:31 Anti-Inflamma TAKE DUE TO GASTRIC BYPASS SURGERY Review of Systems 2 Review of Systems: All systems reviewed & are unremarkable except as noted in HPI and below PMFSH Past Medical History Medical History Sprain of upper back Open toe wound Fracture of toe of right foot 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 Abscess, scrotum Encounter for surgical aftercare following surgery on the skin and subcutaneous tissue Secondary hypotension Abscess of deep perineal space Chronic frontal sinusitis Chronic ethmoidal sinusitis Acute otitis media, right PVD (peripheral vascular disease) Dysfunction of both eustachian tubes Perforated tympanic membrane Agitation Memory loss Dog bite Influenza A Cough Hand, foot and mouth disease Rash Acute alcoholic pancreatitis Alcohol abuse Other fracture of right great toe, sequela Cellulitis of toe, right Diabetic neuropathy Unspecified open wound of unspecified toe(s) without damage to nail, subsequent encounter Cellulitis of foot, left Irritation symptom of skin Pannus, abdominal TALIB (obstructive sleep apnea) Thoracic spondylosis MDD (major depressive disorder), recurrent episode, moderate Benign essential HTN Arthritis of knee, degenerative Diabetes mellitus Morbid (severe) obesity due to excess calories Hypertension Surgical History Surgical History Status post incision and drainage complex incision and drainage left perineal abscess measuring 10 x 5 cm on 08/22/23 History of appendectomy Hx of total knee arthroplasty bilateral History of gastric bypass 04/07/18 Family History Family History Father Hypertension Family history of chronic obstructive pulmonary disease Diabetes mellitus Family history of arthritis Patient's father is , Onset Age: 72 Sibling Hypertension Family history of chronic obstructive pulmonary disease Patient's sister is , Onset Age: 54 Patient's brother is in good health Mother Family history of lymphoma Patient's mother is , Onset Age: 54 Social History Social History Social History: Caffeine-coffee/tea Smoking packs per day: 0.5 Smoking cigarettes per day: 10.0 Years smoked: 35 Smoking pack-years: 17.50 Smoking status: Current every day smoker Tobacco type: cigarettes Second hand tobacco smoke exposure: Yes Smoking end date: 11/15/22 Alcohol intake: former Substance use: current Substance use type: marijuana Other substance usage details: Edibles Lack of Transportation: No Lack of Food: Never True Current Housing: I Have Housing Concerned About Future Housing: No Difficulty Paying Gas/Electric Bills: No Difficulty Paying for Meds: No Currently Unemployed: No Education: Associate Degree Difficulty w/ Childcare or Family Care: No Living arrangements: with family Occupation/Education: occupation Additional occupation/education comments: [employer] Gender identity (if verbalized by the patient): Male Sexual Orientation (if Verbalized by the Patient): Straight or Heterosexual Spiritual care concerns: No Exam 2 Narrative: EXAMINATION OF ORGAN SYSTEMS/BODY AREAS: Constitutional: Vital signs per nursing GENERAL:No acute distress, non-toxic appearing. HEAD: Normal with no signs of head trauma. EYES: EOMI, conjunctiva normal ENT: Hearing grossly intact LUNGS: Nonlabored breathing. HEART: Regular rate and rhythm ABD: Soft, nontender to palpation to abdomen; slight R flank tenderness EXT: Normal range of motion SKIN: No rashes or lesions. NEURO: Alert. No gross focal sensory or strength deficits. PSYCH: Normal affect Course Vital Signs Vital signs: Vital Signs Temperature 98.7 F 02/20/25 14:27 Pulse Rate 77 02/20/25 14:27 Respiratory Rate 20 02/20/25 14:27 Blood Pressure 154/83 H 02/20/25 14:27 Pulse Oximetry 97 02/20/25 14:27 Oxygen Delivery Room Air 02/20/25 14:27 Temperature 98.7 F 02/20/25 14:27 Pulse Rate 77 02/20/25 14:27 Respiratory Rate 20 02/20/25 14:27 Blood Pressure 162/81 H 02/20/25 16:02 Pulse Oximetry 97 02/20/25 16:02 Oxygen Delivery Room Air 02/20/25 14:27 MDM MDM Narrative Medical decision making narrative: ED COURSE AND MEDICAL DECISION MAKINM presenting to the emergency department for acute flank pain, symptoms are concerning for likely renal colic versus pyelonephritis. Urinalysis is ordered. IV Morphine 4 mg, Zofran 4mg are ordered. CT scan of the abdomen/pelvis is ordered. Labs are remarkable for: Some blood in urine but no signs of UTI. CT scan of the abdomen/pelvis is reviewed by myself and interpreted by radiology: Right distal ureteral stone 2 mm. On reevaluation, the patient pain resolved. He feels comfortable going home with follow-up outpatient. Already on Flomax Patient is strongly advised to return to the emergency department for any increasing pain not improving with medications, persistent nausea vomiting, fevers or chills or for any other concerns. Patient is comfortable with this plan and was discharged in fair condition. Differential Diagnosis Differential Diagnosis: MSK, UTI, kidney stone etc. Lab Data 02/20/25 14:38 02/20/25 14:38 Labs: Lab Results 02/20/25 Range/Units 14:38 WBC 10.4 H (4.5-10.0) K/mm3 RBC 4.52 L (4.6-6.20) M/mm3 Hgb 13.7 L (14.0-18.0) g/dL Hct 41.8 L (42.0-52.0) % MCV 92.5 (80-100) fl MCH 30.3 (26-34) pg MCHC 32.8 (32-36) g/dl RDW 12.4 (11.5-14.5) % Plt Count 183 (150-375) k/mm3 MPV 10.9 H (7.4-10.4) fl Immature Gran % (Auto) 0.4 (0-0.5) % Neut % (Auto) 72.0 (45.5-73.1) % Lymph % (Auto) 17.1 L (18.3-44.2) % Nye % (Auto) 9.7 H (2.6-8.5) % Eos % (Auto) 0.6 (0-4.4) % Baso % (Auto) 0.2 (0.2-1.2) % Lymph # (Auto) 1.77 (0.9-3.2) K/mm3 Nye # (Auto) 1.0 H (0.1-0.6) K/mm3 Eos # (Auto) 0.1 (0-0.3) K/mm3 Baso # (Auto) 0.0 (0.0-0.1) K/mm3 Abs Immat Gran (auto) 0.04 H (0.00-0.031) K/mm3 Absolute Neuts (auto) 7.5 H (1.3-6.7) K/mm3 Absolute Nucleated RBC 0.000 (0.0-0.012) K/mm3 Nucleated RBC % 0.0 (0.0-0.2) % Sodium 136 L (137-145) mmol/L Potassium 4.1 (3.4-5.0) mmol/L Chloride 104 (98-107) mmol/L Carbon Dioxide 26 (22-30) mmol/L Anion Gap 6 (4-12) mmol/L BUN 16 (9-20) mg/dL Creatinine 1.15 (0.7-1.3) mg/dL Estim Creat Clear Calc 88 ml/min Estimated GFR > 60 (59 - ) Glucose 132 H (65-110) mg/dL Calcium 9.2 (8.4-10.2) mg/dL Urine Color Dark yellow (Yellow) Urine Appearance Clear (Clear) Urine pH 5.5 (5.0-9.0) Ur Specific [place] 1.034 (1.001-1.035) Urine Protein 1+ H (Negative) mg/dL Urine Glucose (UA) Negative (Negative) mg/dL Urine Ketones 1+ H (Negative) mg/dL Ur Blood (Man) 2+ H (Negative) Urine Nitrate Negative (Negative) Urine Bilirubin Negative (Negative) Urine Urobilinogen 1.0 (<2.0) mg/dL Leukocyte Esterase Rfl Trace H (Negative) LEANDRA/UL Urine RBC 6-10 H (0-2) /hpf Urine WBC 0-5 (0-3) /hpf Ur Squamous Epith Cells None seen (Few) /hpf Urine Bacteria None seen /hpf Urine Casts 0-2 Imaging Data Radiologist's impression: ITS Impressions Abdomen/Pelvis CT 02/20/25 15:08 IMPRESSION: Right-sided obstructive uropathy Discharge Plan Discharge Clinical Impression: Calculus of distal right ureter Patient Disposition: Home Condition: Stable Instructions: Kidney Stones (ED) Additional Instructions: Take the medications as prescribed and follow-up with the urologist. If your pain returns or worsens or it becomes unbearable, if you cannot keep anything down, develops fevers or chills or cannot urinate, please come back to the emergency room. Patient Language: Chadian Prescriptions: New ondansetron 4 mg tablet,disintegrating 4 mg PO Q8H PRN (Reason: nausea and vomiting) Qty: 10 0RF oxycodone 5 mg tablet 5 mg PO Q6H PRN (Reason: pain) Qty: 14 0RF No Action fluticasone propionate 50 mcg/actuation spray,suspension 1 spray INTRANASAL Q6-8H PRN (Reason: Allergy Symptoms) lisinopril 10 mg tablet 10 mg PO DAILY Qty: 90 4RF albuterol sulfate 90 mcg/actuation HFA aerosol inhaler 1 inh inhalation Q4H PRN (Reason: shortness of breath or wheezing) Qty: 6.7 0RF amlodipine 5 mg tablet 5 mg PO DAILY Qty: 90 1RF tadalafil [Cialis] 5 mg tablet 5 mg PO DAILY Qty: 90 1RF atorvastatin 10 mg tablet See Rx Instructions .ROUTE .COMPLEX Qty: 90 1RF Dose Instruction: TAKE 1 TABLET BY MOUTH DAILY Rx Instructions: TAKE 1 TABLET BY MOUTH DAILY tizanidine 2 mg tablet See Rx Instructions .ROUTE .COMPLEX Qty: 90 1RF Dose Instruction: TAKE 1 TABLET BY MOUTH THREE TIMES DAILY NEEDED FOR MUSCLE SPASMS Rx Instructions: TAKE 1 TABLET BY MOUTH THREE TIMES DAILY NEEDED FOR MUSCLE SPASMS tamsulosin 0.4 mg capsule See Rx Instructions .ROUTE .COMPLEX Qty: 60 2RF Dose Instruction: TAKE 1 CAPSULE BY MOUTH TWICE DAILY Rx Instructions: TAKE 1 CAPSULE BY MOUTH TWICE DAILY omeprazole 20 mg capsule,delayed release(DR/EC) See Rx Instructions .ROUTE .COMPLEX Qty: 90 0RF Dose Instruction: TAKE 1 CAPSULE BY MOUTH DAILY Rx Instructions: TAKE 1 CAPSULE BY MOUTH DAILY fluoxetine 40 mg capsule See Rx Instructions .ROUTE .COMPLEX Qty: 90 1RF Dose Instruction: TAKE 1 CAPSULE BY MOUTH DAILY Rx Instructions: TAKE 1 CAPSULE BY MOUTH DAILY Follow-up/Referrals: Rory Tello MD [Physician, Urology] - 2 Days Rod Herbert MD [Primary Care Provider, Family Practice]
== END 2025-02-20 16:19 | disposition home or self-care (01) ==
PROVIDERS: Emergency Medicine; Emergency Provider Emergency Medicine; PCP Family Medicine
DX: N13.1 Hydronephrosis with ureteral stricture, not elsewhere classified (principal); I10 Essential (primary) hypertension; E11.51 Type 2 diabetes mellitus with diabetic peripheral angiopathy without gangrene; I73.9 Peripheral vascular disease, unspecified; E11.40 Type 2 diabetes mellitus with diabetic neuropathy, unspecified; E66.01 Morbid (severe) obesity due to excess calories; Z68.41 Body mass index [BMI] 40.0-44.9, adult; J32.2 Chronic ethmoidal sinusitis; J32.1 Chronic frontal sinusitis; G47.33 Obstructive sleep apnea (adult) (pediatric); F33.9 Major depressive disorder, recurrent, unspecified; Z98.84 Bariatric surgery status; Z96.653 Presence of artificial knee joint, bilateral; Z87.891 Personal history of nicotine dependence; Z79.899 Other long term (current) drug therapy
CPT/HCPCS: 36415; 74176; 80048; 81001; 85025; 96361; 96374; 96375; 99284; J2270; J2405; J7120